=== PATIENT | female | born 1950 | race Caucasian/White ===

== ENCOUNTER 2017-05-28 17:13 | Inpatient (IN) | payer OTHER ==
[~2017-05-28] VITALS: Ht 160 cm; Wt 70.3 kg
[2017-05-28] MEDS ORDERED: NORVASC5 MG PO (17:47)
[2017-05-28] MEDS ORDERED: LIORESAL 10 MG10 MG PO (17:48)
[2017-05-28] MEDS ORDERED: BUSPIRONE HCL10 MG PO (17:49)
[2017-05-28] MEDS ORDERED: COLACE 100 MG100 MG PO (17:51)
[2017-05-28] MEDS ORDERED: DOXYCYCLINE 10100 MG PO (17:52)
[2017-05-28] MEDS ORDERED: ENOXAPARIN40 MG/0.1 SUBQ (17:53)
[2017-05-28] MEDS ORDERED: ESTRADIOL 1 MG T1 M1 PO (17:54)
[2017-05-28] MEDS ORDERED: IRON325 PO (18:03)
[2017-05-28] MEDS ORDERED: FEXOFENADINE H180 MG PO (18:07)
[2017-05-28] MEDS ORDERED: FOLIC ACID1 MG PO (18:08)
[2017-05-28] MEDS ORDERED: NEURONTIN 300M300 M2 PO (18:08)
[2017-05-28] MEDS ORDERED: HYZAAR 50-12.51 EACH PO (18:10)
[2017-05-28] MEDS ORDERED: METHIMAZOLE10 MG PO (18:11)
[2017-05-28] MEDS ORDERED: OMEPRAZOLE40 MG PO (18:12)
[2017-05-28] MEDS ORDERED: OXYCONTIN10 M1 PO (18:14)
[2017-05-28] MEDS ORDERED: ROXICODONE5 M2 PO (18:16)
[2017-05-28] MEDS ORDERED: POTASSIUM20 PO (18:17)
[2017-05-28] MEDS ORDERED: SIMVASTATIN20 MG PO (18:20)
[2017-05-28 19:30] VITALS: BP 171/70
--- NOTE | 2017-05-28 23:34 | NUR ---
ASSUMED CARE AT 1930. PATIENT ADMITTED TO ROOM 333 FROM [facility] S/P L4-5 LAMINECTOMY, FACETECTOMY AND FORAMINOTOMIES WITH POSTERIOR SPINAL FUSION. MIPILEX DRESSING ON LOWER BACK INTACT, SOME SHADOW DRAINAGE NOTED. MEDICATED FOR PAIN AT HS. SKIN OTHERWISE INTACT. UP WITH STEADYING ASSIST, GAIT BELT, WALKER. VOIDS PER TOILET. GAIT UNSTEADY AT TIMES. ABLE TO DO HYGEINE AND CLOTHING ADJUSTMENTS. TAKES PILLS WHOLE WITH WATER, POTASSIUM ALONE, ALL THE OTHERS AT ONE TIME. DECLINED IRON TAB AT HS, STATES SHE TOOK IT WITH HER SUPPER AND IT MAKES HER NAUSEATED. SPENDING THE NIGHT WITH HER. ABLE TO TURN SELF SIDE TO SIDE, AND HAS GOOD BED MOBILITY. ASSESSMENT COMPLETE. K PAD SET UP FOR PATIENT. HOURLY ROUNDING CONTINUES. BED ALARM ON. CALL LITE IN REACH.
--- NOTE | 2017-05-29 06:23 | NUR ---
SLEPT AFTER ABOUT 0300. OBSERVED RESTING IN BED WITH EYES CLOSED BEFORE THAT BUT ABOUT 0215 C/O NOT BEING ABLE TO SLEEP. GAVE PAIN MED, SEE MAR. PATIENT VERBALIZED THAT SHE HAD TO CANCEL SURGERY IN MARCH BECAUSE OF A IN THE FAMILY AND COULD NOT RESCHEDULE UNTIL MAY. THEN SHE HAD THE SECOND SURGERY AND SHE EXPRESSED FRUSTRATION WITH HER PROGRESS. ALLOWED HER TO VENT. STATES FEELS BETTER AFTER TALKING ABOUT IT. CONTINUES AT BEDSIDE. PATIENT ABLE TO TURN SELF, HOURLY ROUNDS CONTINUE. CALL LITE IN REACH. BED ALARM ON.
[2017-05-29 06:41] LABS: HEMATOCRIT 24.7 % (37.0-47.0); MCH 27.2 pg (26.0-34.0); MCHC 32.5 g/dL (28.0-37.0); MCV 83.8 fL (80.0-100.0); MPV 8.1 fl. (7.2-11.1); RBC 2.95 mil/uL (4.20-5.00); RDW-CV 16.3 % (10.5-14.5); WBC 10.8 thou/uL (4.0-11.0)
[2017-05-29 06:50] LABS: CALCIUM 8.3 mg/dL (8.5-10.1); CREATININE 0.9 mg/dL (0.6-1.3); POTASSIUM 4.1 mmol/L (3.5-5.1)
[2017-05-29 08:03] VITALS: BP 146/56
--- NOTE | 2017-05-29 12:47 | NUR ---
Nutrition: pt admit to rehab unit with lumar stenosis, S/P laminectomy. Labs/meds reviewed. No edema. Regular diet. Only one meal documented so far at 50%. 2 weights taken on admit 352# and 155#. Follow for accuracy. No other wt hx available. Would consider low nutrition risk.
--- NOTE | 2017-05-29 16:47 | NUR ---
ASSUMED CARE AT 0730 PATIENT ALERT/ORIENTED, UP WITH ASSIST OF ONE AND WALKER, PAIN MEDS GIVEN FOR GOOD PAIN CONTROL, PARTICIPATED IN ALL THERAPIES, TO DINING ROOM FOR MEALS, HOURLY ROUNDING COMPLETED. BED/CHAIR ALARMS IN PLACE, CALL LIGHT IN REACH. DRESSING TO LOWER BACK WITH OLD DRAINAGE NOTED. CONTINUE WITH CURRENT PLAN OF CARE
[2017-05-29 20:00] VITALS: BP 144/49
--- NOTE | 2017-05-30 05:04 | NUR ---
ASSUMED CARES AT 1920. PT ALERT AND ORIENTED. ALREADY IN BED. PLEASANT. STAYED OVERNIGHT. PAIN MEDS GIVEN NEEDED. TAKES PILLS WITHOUT ISSUES. HEATING PAD TO RIGHT HIP/LEG. DRESSING TO LOWER BACK IS INTACT. SHE IS A MIN ASSIST WITH GAIT BELT AND WALKER. UP TO BATHROOM X 2 DURING THE NIGHT. SLEPT WELL OTHERWISE. USED CALL LIGHT APPROPRIATELY.
[2017-05-30 09:42] VITALS: BP 118/55
--- NOTE | 2017-05-30 17:04 | NUR ---
ASSUMED CARE AT 0730 PATIENT ALERT/ORIENTED, UP WITH ASSIST OF ONE WALKER/GAIT BELT, PAIN MEDS GIVEN TODAY, NOTICED INCREASE SOMMOLENCE THROUGH OUT MORNING. RECIEVED ORDER FROM DR BAIRES TO ADJUST PAIN MEDICATIONS. PARTICIPATED IN THERAPIES, BUT WAS VERY DROWSY, HOURLY ROUNDING COMPLETED, BED/CHAIR ALARMS IN PLACE, CALL LIGHT IN REACH, TOO DROWSY TO GO TO DINING ROOM FOR LUNCH, FAMILY BROUGHT IN DINNER STAYED IN ROOM. CONTINUE WITH CURRENT PLAN OF CARE
[2017-05-30 20:00] VITALS: BP 148/53
--- NOTE | 2017-05-31 05:15 | NUR ---
ASSUMED PT CARE AT 1930. PT ALERT AND ORIENTED X4, POLITE AND COOPERATIVE WITH CARES. PT ALREADY IN BED AT SHIFT CHANGE. UP X1 TO TOILET OVERNIGHT TO VOID. MIN ASSIST WITH GAIT BELT AND WALKER. STAYED OVERNIGHT. NO PRN PAIN MEDICATIONS. TAKES PILLS WHOLE WITH WATER WITHOUT DIFFICULTY. DRESSING TO LOWER BACK IS C/D/I. SLEPT WELL OVERNIGHT. USES CALL LIGHT APPROPRIATELY. CALL LIGHT AND FREQUENTLY USED ITEMS WITHIN REACH. HOURLY ROUNDING IN PROGRESS, WILL CONTINUE TO MONITOR.
[2017-05-31 07:35] VITALS: BP 158/60
--- NOTE | 2017-05-31 15:52 | NUR ---
ASSUMED CARE AT 0730. ALERT ORIENTED PLEASANT COOPERATIVE. HX OF L4-L-5 LAMI DRESSING C/D/I WITHOUT DRAINAGE. TRANSFERS WITH SBA G BELT WALKER AMBULATES TO BR TO VOID AND HAD BM STATES GERD THIS A.M. BUT IS ON PROTONIX DAILY HX OF TAKING PRILOSEC BID AT HOME. OBTAINED ORDER FOR PROTONIX BID, STATES IROM MED DOES MAKE HER FEEL SICK AT HER STOMACH AT HOME. WILL GIVE AFTER MEALS. STATES RT. LEG PAIN BUT HAD PRN MED AT SHIFT CHANGE AND DOESNT WANT TO BE OVERMEDICATED DROWSY LIKE YESTERDAY. USES CALL LIGHT APPROPRIATELY RESTED IN BED AND ALSO UP IN RECLINER VISITING WITH SPOUSE.
[2017-05-31 20:00] VITALS: BP 152/54
--- NOTE | 2017-06-01 05:26 | NUR ---
ASSUMED CARES AT 1915. PT ALERT AND ORIENTED. PLEASANT. HAS PAIN TO RIGHT HIP/BUTTOCK. OXY IR GIVEN FOR PAIN. PT IS BEING CAUTIOUS ABOUT TAKING PAIN MEDS. PT IS ALTERNATING COLD AND HEAT PACK. DRESSING TO LOWER BACK IS INTACT. SLEPT BETTER AFTER MIDNIGHT. SHE IS A MIN ASSIST WITH GAIT BELT AND WALKER. UP TO BATHROOM X 2. DOES OWN CARES. STAYED OVERNIGHT. CALL LIGHT IN REACH.
[2017-06-01 08:10] VITALS: BP 143/46
[2017-06-01 14:14] LABS: % SATURATION 11 % (20-39); IRON 30 ug/dL (50-175)
--- NOTE | 2017-06-01 16:20 | NUR ---
PT HAS PARTICIPATED WITH THERAPIES AND AMBULATES WITH GAITBELT WALKER AND MIN ASSIST OF 1. PT CALLS FOR ASSIST WITH TRANSFERRS AND IS ALERT AND ORIENTATED. DRESSING TO BACK DRY AND INTACT. PRN TO RT THIGH AND SIATICA AREA PAIN GIVEN WITH FAIR EFFECT. PT STATES SHE HAS RELIEF WITH USE OF TYLENOL AND VICODIN SHE USES AT HOME. VICODIN HAS BEEN ORDERED PER . HERE THIS AFTERNOON ADN STAYS OVER NIGHT. PT PROGRESSES TOWARDS GOALS AND HOURLY ROUNDING CONTINUES.
--- NOTE | 2017-06-01 16:30 | NUR ---
INITIAL ASSESSMENT NOTE SW met with pt and pt to complete initial assessment, introduce self, and SW role. Pt alert and oriented. Pt plans to be able to dc home with . Pt has one step to get inside the home and a split entry level java developer home with 5 steps to get to main level where pt can stay. SW to continue to follow to assist with safe dc planning.
--- NOTE | 2017-06-01 19:40 | NUR ---
RESTING QUIETLY IN BED. DENIES NEED FOR PAIN MED. IN ROOM LAYING ON A COT. TOOK MEDS WHOLE WITH WATER.
[2017-06-01 20:01] VITALS: BP 148/60
--- NOTE | 2017-06-02 06:01 | NUR ---
RESTED ON/OFF. SOME RELIEF FROM RIGHT HIP PAIN WITH PAIN MEDS. C/O BED BEING UNCOMFORTABLE. C/O HEARTBURN. HAS SCHEDULED PROTONIX. DIDN'T WANT TO TAKE MYLANTA. UP TO RECLINER AT ABOUT 0520. HOURLY ROUNDING IN PROGRESS.
[2017-06-02 07:39] VITALS: BP 145/47
--- NOTE | 2017-06-02 16:56 | NUR ---
ASSUMED CARE AT 0730 PATIENT ALERT/ORIENTED, PAIN MEDS GIVEN ORDERED. PATIENT BROUGHT IN BOTTLE OF MEDS THAT SHE TAKES TO VERIFY MEDICATION; OXYCODONE 15 MG Q 4 HOURS NEEDED. ALSO WROTE ORDER FOR HOME DOSE OF PRILOSEC DUE TO PATIENT HAVING NO RELIEF FROM PROTONIX. MED TO START TONIGHT. DRESSING TO BACK INCISION CHANGED TODAY. TEAM MEETING TODAY WITH RETEAM FOR NEXT WEEK. UP WITH ONE AND WALKER/GAIT BELT, HOURLY ROUNDING COMPLETED, BED/CHAIR ALARMS IN PLACE, TO DINING ROOM FOR MEALS, PARTICIPATED IN ALL THERAPIES TODAY. CONTINUE WITH CURRENT PLAN OF CARE
[2017-06-02 20:26] VITALS: BP 146/45
--- NOTE | 2017-06-03 05:09 | NUR ---
ASSUMED PT CARE AT 1930. PT ALERT AND ORIENTED X4, POLITE AND COOPERATIVE WITH CARES. DRESSING TO LOWER BACK C/D/I. PRN PAIN MEDICATION ONCE THIS SHIFT FOR RIGHT LEG PAIN. HEATING PAD IN USE TO RIGHT HIP/LEG. PT HAD FIRST DOSE OF HOME SUPPLY OF PRILOSEC. UP WITH ONE, GAIT BELT AND WALKER. PT WALKED HALLWAYS WITH TECH BEFORE BED. UP ONCE TO VOID OVERNIGHT. USES CALL LIGHT APPROPRIATELY. CALL LIGHT AND FREQUENTLY USED ITEMS WITHIN REACH. HOURLY ROUNDING IN PROGRESS, WILL CONTINUE TO PATRICIA.
[2017-06-03 07:39] VITALS: BP 135/55
--- NOTE | 2017-06-03 16:24 | NUR ---
SW met with pt to review team conference summary. Plan for team to reassess pt length of stay during team conference next week. Pt in agreement with plan. SW discussed therapists reported pt to be supervision level with all tasks. Pt expressed goal to not have to dc with a walker, pt hoping to be able to walk just with a cane or with no AD. SW to continue to follow to assist with safe dc planning.
--- NOTE | 2017-06-03 18:09 | NUR ---
PT HAS PARTICIPATED WITH THERAPIES AND PRN FOR PAIN PT REQUESTS GIVEN WITH GOOD EFFECT.PT REPORTS PAIN IS IN RT. THIGH AND SCIATIC AREA AND USES HEATING PAD AT TIMES DRESSING TO LOWER BACK CHANGED TODAY DUE TO ROLLING UP AND HAVING MODERATE SEROUS DRAINAGE. PT IS ALERT AND ORIENTATED AND CONTINUES TO PROGRESS TOWARDS GOALS, HOURLY ROUNDING CONTINUES.
[2017-06-03 19:30] VITALS: BP 153/62
--- NOTE | 2017-06-03 19:30 | NUR ---
PT FELL WHILE USING THE TOILET AT SHIFT CHANGE. PT WAS PLACED ON TOILET BY BUSINESS INSIGHT AND ANALYTICS MANAGER WHO LEFT TO GO TO ANOTHER ROOM. PT PULLED CALL LIGHT AND GOT UP WITHOUT WAITING FOR ASSISTANCE. PT SAT DOWN ON FLOOR AND BUMPED HER HEAD AGAINST THE WALL. VITAL SIGNS TAKEN AND DR. BAIRES NOTIFIED. NO NEW ORDERS. VSS, PT APPEARS TO BE UNHARMED. PER PT SHE HAD BEEN FEELING BAD FOR SOME TIME, NAUSEATED AND DIZZY. PT THINKS THE RETURN TO HER HOME PAIN MEDS MADE HER DIZZY, THAT THEY ARE TOO MUCH, PERHAPS BASED ON THE SEVERE PAIN SHE WAS SUFFERING JUST AFTER SURGERY. PT IN ROOM, CALLED OUT TO THE DESK WHEN PT FELL.
[2017-06-03 21:24] VITALS: BP 153/62
--- NOTE | 2017-06-04 05:59 | NUR ---
PT ALERT AND ORIENTED X4. PT S/P LAMINECTOMY. ORDER OBTAINED FOR ZOFRAN, PT HAD EMESIS ONCE ON DAY SHIFT AND ONCE THIS SHIFT. PT SLEPT WELL AFTER RECEIVING ZOFRAN AND WHEN SHE AWOKE FELT MUCH BETTER. NO RESIDUAL EFFECTS FROM PT FALL. WHEN PT FELL THERE WAS NO RISER IN THE BATHROOM, RISER WAS REPLACED OVER TOILET FOR PT STEADYING ASSIST. UP TO BATHROOM X1 TO VOID WITH GAITBELT AND WALKER WITHOUT INCIDENT. CALL LIGHT AND FREQUENTLY USED ITEMS WITHIN REACH. HOURLY ROUNDING COMPLETED.
[2017-06-04 07:49] VITALS: BP 126/48
--- NOTE | 2017-06-04 12:19 | NUR ---
PATIENT GIVEN WRITTEN HOME EX PROGRAM FOR TKR EX'S VERBAL REVIEW OF PROGRAM.
--- NOTE | 2017-06-04 15:43 | NUR ---
15 MINUTES OF TODAYS TREAMENT MINUTES HAVE BEEN TRANSFERED TO 06/03/17 TREATMENT MINUTES DUE TO YESTURDAY PT ILL.
--- NOTE | 2017-06-04 17:38 | NUR ---
PT HAS HAD NAUSEA TODAY WITH PRN GIVEN WITN FAIR EFFECT AND NO EMISIS. PT HAS REQUESTED NOT TO TAKE MEDICATIONS TODAY WITH AWARE. PT HAS TOLERATED BROYH FROM CHICKEN NOODLE SOUP AND FEW BITES OF BREAD TODAY. PT REMAINS ALERT AND ORIENTATED AND HAS PARTICIPATED WITH THERAPIES TODAY.PT PROGRESSES TOWARDS GOALS AND HOURLY ROUNDING CONTINUES.
[2017-06-04 19:05] VITALS: BP 134/46
[2017-06-04 20:14] VITALS: BP 145/52
--- NOTE | 2017-06-04 22:25 | NUR ---
ASSUMED CARES AT 1930. PT ALERT AND ORIENTED. UP IN RECLINER. AT BEDSIDE. CONTINUES TO HAVE LINGERING NAUSEA SO ZOFRAN WAS GIVEN PER REQUEST. NO EMESIS SO FAR. REFUSED TO TAKE BEDTIME MEDS SHE FEELS TAKING THESE WILL CAUSE HER TO VOMIT. DENIES ANY NEED FOR PAIN MEDS. ICE PACK GIVEN FOR RIGHT HIP. PT RESTING. WILL CONTINUE TO MONITOR.
--- NOTE | 2017-06-05 02:02 | NUR ---
AT 2345, PT C/O RIGHT THIGH PAIN. PT WANTED TYLENOL SO THIS WAS GIVEN. AT 0200, STILL FEELING PAIN, UNCOMFORTABLE. WANTED UP TO RECLINER FOR SHORT TIME. FINALLY AGREEABLE TO TAKING OXYCODONE. ZOFRAN GIVEN WELL. BELCHING AT TIMES. ALTERNATING HEAT AND ICE. REPOSITIONING IN BED.
--- NOTE | 2017-06-05 03:48 | NUR ---
SPOKE WITH DR MORENO, ORDER RECEIVED FOR REGLAN PRN, MELATONIN PRN, LIDOCAINE PATCH. PT SLEEPING SOUNDLY AFTER OXY WAS GIVEN. WILL CONTINUE TO MONITOR.
--- NOTE | 2017-06-05 05:08 | NUR ---
SHE IS A MIN ASSIST WITH GAIT BELT AND WALKER. UP TO BATHROOM. DOES OWN CARES. ISLAND DRESSING TO LOWER BACK IS INTACT WITH MINIMAL DRAINAGE NOTED. PT ASLEEP AT THIS TIME. CALL LIGHT IN REACH AND BED ALARM ON.
[2017-06-05 07:30] VITALS: BP 133/56
[2017-06-05 07:32] LABS: HEMATOCRIT 24.6 % (37.0-47.0); HEMOGLOBIN 8.1 gm/dL (12.0-15.0); MCH 27.5 pg (26.0-34.0); MCHC 32.9 g/dL (28.0-37.0); MCV 83.5 fL (80.0-100.0); MPV 7.6 fl. (7.2-11.1); RBC 2.94 mil/uL (4.20-5.00); RDW-CV 17.5 % (10.5-14.5); WBC 5.7 thou/uL (4.0-11.0)
[2017-06-05 07:37] LABS: CALCIUM 8.1 mg/dL (8.5-10.1); CREATININE 1.1 mg/dL (0.6-1.3)
[2017-06-05 07:40] LABS: POTASSIUM 2.5 mmol/L (3.5-5.1)
--- NOTE | 2017-06-05 16:07 | NUR ---
ASSUMED CARE AT 0730 PATIENT ALERT/ORIENTED, NEW LIDOCAINE PAIN PATCH APPLIED TODAY WITH GOOD RESULTS, PAIN MED GIVEN X1 THIS SHIFT, NO REPORTS OF NAUSEA, ALTHOUGH PATIENT REQUESTED ONLY SOUP/TWIST DRINK, PARTICIPATED IN THERAPIES TODAY, TO DINING ROOM FOR MEALS, HOURLY ROUNDING COMPLETED, BED/CHAIR ALARMS IN PLACE, CALL LIGHT IN REACH
--- NOTE | 2017-06-05 19:05 | NUR ---
CRITICAL LAB THIS AM K+ 2.5, CALLED FULL STACK ENGINEER DR JOSH TRAN CALLED BACK, NO NEW ORDERS, PATIENT HAD NOT BEEN TAKING HER DAILY K+ (20 MEQ BID), RESTARTED THIS AM. INSTRUCTED ON IMPORTANCE OF TAKING DAILY SUPPLEMENT.
--- NOTE | 2017-06-05 20:20 | NUR ---
AWAKENED FOR HS REASSESSMENT AND MED PASS. DENIES DISCOMFORT. DID TAKE ZOFRAN PROPHALACTICALLY. TOOK MEDS WHOLE WITH CLAY MIST PER PT'S REQUEST. PT STATES WATER AND TAKING POTASSIUM BOTH CAUSE NAUSEA. AWAKE ON COT IN ROOM WATCHING TV.
--- NOTE | 2017-06-06 05:26 | NUR ---
PAIN MED GIVEN X ONE DURING THE NIGHT FOR C/O RIGHT HIP PAIN WITH RELIEF. NO C/O NAUSEA. HOURLY ROUNDING IN PROGRESS.
[2017-06-06 07:59] VITALS: BP 131/46
--- NOTE | 2017-06-06 15:46 | NUR ---
PT HAS BEEN UP TO RECLINER AND HAS AMBULATED IN [place] TO DINNINGROOM WITH WALKER GAITBELT AND MIN ASSIST OF 1. PT HAS NOT REQUESTED PAIN MEDICATION SINCE DOSE GIVEN EARLY THIS AM AND REPORTS LIDODERM PATCH GIVES RELIEF TO RT THIGH PAIN. PT CONTINENT OF B+B AND IS ABLE TO CLEANSE SELF AND ADJUST CLOTHING. . DRESSING TO LOWER BACK DRY AND INTACT. PT REMAINS ALERT AND ORIENTATED AND CALLS FOR ASSIST NEEDS. PT CONTINUES TO PROGRESS TOWARDS GOALS AND HOURLY ROUNDING CONTINUES.
[2017-06-06 20:09] VITALS: BP 139/43
--- NOTE | 2017-06-06 20:20 | NUR ---
RESTING QUIETLY IN BED AND WATCHING TV. DENIES DISCOMFORT. TOOK MEDS WHOLE WITH WATER. TAKES POTASSIUM PILL SEPARATELY. TAKES CHEWABLE PARK LAST. SITTING ON COUCH IN ROOM WATCHING TV.
--- NOTE | 2017-06-07 05:05 | NUR ---
UP X ONE DURING THE NIGHT TO THE BATHROOM TO VOID. PAIN MED GIVEN FOR C/O RIGHT HIP PAIN WITH RELIEF. HOURLY ROUNDING IN PROGRESS.
[2017-06-07 07:46] VITALS: BP 126/48
--- NOTE | 2017-06-07 17:49 | NUR ---
ASSUMED CARE AT 0730 PATIENT ALERT/ORIENTED, PAIN TO RIGHT THIGH REPORTED, LIDOCAINE PATCH APPLIED, NO PO PAIN MEDS NEEDED THIS SHIFT. PARTICIPATED IN ALL THERAPIES TODAY, TO DINING ROOM FOR MEALS. BED/CHAIR ALARMS IN PLACE, CALL LIGHT IN REACH, HOURLY ROUNDING COMPLETED. UP WITH ONE AND WALKER/GAIT BELT. CONTINUE WITH CURRENT PLAN OF CARE
[2017-06-07 20:16] VITALS: BP 124/49
--- NOTE | 2017-06-07 20:20 | NUR ---
SITTING UP IN RECLINER WATCHING TV. LAYING ON COUCH. STAYS WITH PATIENT. TOOK MEDS WHOLE WITH WATER. NO COMPLAINTS VOICED.
--- NOTE | 2017-06-08 05:19 | NUR ---
RESTED QUIETLY. NO COMPLAINTS VOICED. HOURLY ROUNDING IN PROGRESS.
[2017-06-08 07:00] VITALS: BP 128/56
--- NOTE | 2017-06-08 15:36 | NUR ---
pt has participated with therapies and reports pain of rt.thigh better with use of lidocain patch. dressing to low back changed, incision healing with no redness or draiange noted. pt ambulates with gaitbelt and walker with min assist of 1 and inproved gait today. pt continent of b+b.pt remainsalert and orientated and progresses towards goals.
[2017-06-08 20:55] VITALS: BP 115/44
--- NOTE | 2017-06-09 05:34 | NUR ---
ASSUMED CARES AT 1920. PT ALERT AND ORIENTED. PLEASANT. DENIES ANY NAUSEA AND VOMITING. C/O PAIN TO RIGHT THIGH. PAIN MEDS GIVEN PER REQUEST. TAKES PILLS WITHOUT ISSUES. DRESSING TO LOWER BACK IS INTACT. SHE IS A MIN ASSIST WITH GAIT BELT AND WALKER. UP TO BATHROOM. DOES OWN CARES. SLEPT MOST OF THE NIGHT. AT BEDSIDE. CALL LIGHT IN REACH AND BED ALARM ON.
[2017-06-09 08:12] VITALS: BP 116/33
--- NOTE | 2017-06-09 16:15 | NUR ---
SW met with pt, pt , and pt sister in law and brother in law to review team conference summary. Plan for pt to continue rehab therapies and for team to reassess pt length of stay during team conference on Friday 06/16. Pt and pt in agreement with plan. SW discussed team mentioned pt barriers to be gait deviation, decreased balance, WB differential, decreased standing balance, pain and pt anticipates working with therapists on interventions and making progress towards her goals within the next week. SW to continue to follow to assist with safe dc planning.
--- NOTE | 2017-06-09 17:00 | NUR ---
ASSUMED CARE AT 0730 PATIENT ALERT/ORIENTED, PAIN WELL CONTROLLED WITH LIDODERM PATCH TO RIGHT THIGH/HIP AREA. DRESSING TO LOW BACK C/D/I, UP WITH ASSIST OF ONE AND WALKER/GAIT BELT, TO DINING ROOM FOR MEALS. HOURLY ROUNDING COMPLETED, PARTICIPATED IN ALL THERAPIES TODAY, BED/CHAIR ALARMS IN PLACE. CALL LIGHT IN REACH. CONTINUE WITH CURRENT PLAN OF CARE
[2017-06-09 19:30] VITALS: BP 123/42
--- NOTE | 2017-06-10 05:33 | NUR ---
ASSUMED CARES AT 1920. PT ALREADY IN BED. SLEEPING. ORIENTED X 4. C/O PAIN TO RIGHT THIGH AND SO OXYCODONE GIVEN. NO C/O NAUSEA OR VOMITING. SLEPT WELL MOST OF THE NIGHT. SHE IS A MIN ASSIST WITH GAIT BELT AND WALKER. UP TO BATHROOM. DOES OWN CARES. STAYED OVERNIGHT. USED CALL LIGHT APPROPRIATELY. BED ALARM ON.
[2017-06-10 07:45] VITALS: BP 139/57
[2017-06-10 15:20] VITALS: BP 134/65
[2017-06-10 17:16] VITALS: BP 134/65
--- NOTE | 2017-06-10 18:28 | NUR ---
ASSUMED CARE AT 0730 PATIENT ALERT/ORIENTED, PAIN MEDS GIVEN REQUESTED, PARTICIPATED IN ALL THERAPIES TODAY, WITNESSED FALL THIS AFTERNOON WITH PT, XRAYS OF LUMBAR BACK AND RIGHT HIP ORDERED DUE TO RECENT BACK SURGERY AND INCREASED PAIN TO RIGHT HIP. HOURLY ROUNDING COMPLETED, TO DINING ROOM FOR MEALS, BED/CHAIR ALARMS IN PLACE, CALL LIGHT IN REACH. WILL AWAIT XRAY RESULTS AND FOLLOW UP WITH MD NEEDED.
[2017-06-10 20:07] VITALS: BP 121/43
--- NOTE | 2017-06-11 05:10 | NUR ---
ASSUMED CARES AT 1920. PT SLEEPY BUT WILL AWAKE WHEN SPOKEN TO. C/O BACK PAIN NOW BUT VERY HESITANT TO TAKE ANYTHING STRONGER THAN TYLENOL. ICE PACK GIVEN. SHE IS A MIN ASSIST WITH GAIT BELT AND WALKER. DURING THE NIGHT DID HAVE TO USE W/C TO GO BATHROOM BECAUSE PT WAS FEELING "JERKY" AND UNSTEADY. IS ANXIOUS ABOUT FALLING AGAIN. SLEPT MOST OF THE NIGHT OTHERWISE. DRESSING TO LOWER BACK HAS SMALL AMOUNT OF DRAINAGE AND IS INTACT. USED CALL LIGHT APPROPRIATELY. BED ALARM ON.
[2017-06-11 07:30] VITALS: BP 115/46
[2017-06-11 08:03] VITALS: BP 115/46
[2017-06-11 11:20] LABS: CALCIUM 8.3 mg/dL (8.5-10.1); POTASSIUM 3.6 mmol/L (3.5-5.1)
[2017-06-11 11:41] LABS: MAGNESIUM 1.7 mg/dL (1.8-2.4); PHOSPHORUS* 3.7 mg/dL (2.5-4.9)
--- NOTE | 2017-06-11 16:50 | NUR ---
AM ASSESSMENT AND FALL PRECAUTIONS COMPLETED DOCUMENTED. PT WAS VERY DROWSY THIS AM, STATES SHE DIDN'T SLEEP WELL LAST NIGHT. THERAPY ADJUSTED HER SCHEDULE TO ALLOW HER TO SLEEP LATER AND PT WAS MORE ALERT AND COOPERATIVE AT THAT POINT. PT SHOWERED WITH THE ASSISTANCE OF OT, DRESSING TO LOW BACK INCISION CHANGED. PAIN HAS BEEN ADEQUATELY CONTROLLED WITH TYLENOL AND ULTRAM. FALL/ SAFETY PRECAUTIONS IN PLACE, HOURLY ROUNDING OBSERVED.
[2017-06-11 20:07] VITALS: BP 137/38
--- NOTE | 2017-06-12 05:25 | NUR ---
ASSUMED PT CARE AT 1930. PT ALERT AND ORIENTED X4, POLITE AND COOPERATIVE WITH CARES. PT IS MIN ASSIST WITH GAIT BELT AND WALKER. UP TO VOID ONCE OVERNIGHT. STOOL X1 THIS SHIFT. PT TOOK ULTRAM FOR BACK PAIN AND TYLENOL FOR HEADACHE. PER PT SHE DID NOT SLEEP MUCH OVERNIGHT. DRESSING TO LOWER BACK HAS SMALL AMOUNT OF DRAINAGE BUT OTHERWISE IS INTACT. AT BEDSIDE OVERNIGHT. PT USES CALL LIGHT APPROPRIATELY. CALL LIGHT AND FREQUENTLY USED ITEMS WITHIN REACH. HOURLY ROUNDING IN PROGRESS, WILL CONTINUE TO MONITOR.
[2017-06-12 08:00] VITALS: BP 116/41
--- NOTE | 2017-06-12 12:35 | NUR ---
AM ASSESSMENT AND VITAL SIGNS COMPLETED AND DOCUMENTED. PT C/O NOT SLEEPING WELL LAST NIGHT, STATED SHE FORGOT TO ASK FOR A SLEEPING PILL. PT AMBULATED WITH NURSE APPROXIMATELY 100 FT TO EASE THE PAIN IN HER RIGHT HIP/ THIGH AREA AND THEN SHE WENT BACK TO BED AND SLEPT ABOUT 2 1/2 HOURS BEFORE THERAPY. PRN TYLENOL AND TRAMADOL ALTERNATED FOR PAIN CONTROL, PT DECLINING NARCOTIC PAIN MEDS AFTER RECENT FALL. PT HAS PARTICIPATED WITH THERAPIES, USUSALLY SITS IN THE RECLINER DURING REST PERIODS. FALL PRECAUTIONS AND HOURLY ROUNDING CONTINUE.
[2017-06-12 20:30] VITALS: BP 122/49
--- NOTE | 2017-06-13 04:47 | NUR ---
ASSUMED PT CARE AT 1930. PT ALERT AND ORIENTED X4, POLITE AND COOPERATIVE WITH CARES. PT MIN ASSIST WITH GAIT BELT AND WALKER. UP TO BATHROOM TO VOID ONCE OVERNIGHT. MELATONIN AT HS PER PT REQUEST. PT TOOK TYLENOL FOR PAIN, REFUSES ULTRAM. ICE PACK TO RIGHT HIP AT HS. DRESSING TO LOWER BACK WITH SMALL AMOUNT OF DRAINAGE BUT OTHERWISE INTACT. AT BEDSIDE OVERNIGHT. PT USES CALL LIGHT APPROPRIATELY. CALL LIGHT AND FREQUENTLY USED ITEMS WITHIN REACH. HOURLY ROUNDING IN PROGRESS, WILL CONTINUE TO MONITOR.
[2017-06-13 08:23] VITALS: BP 109/41
--- NOTE | 2017-06-13 17:01 | NUR ---
AM ASSESSMENT AND VITAL SIGNS COMPLETED DOCUMENTED. PT HAS AMBULATED WITH CONTACT GUARD AND WALKER X3 TODAY, APPROX 100 YDS EACH TIME. OXY 15MG GIVEN X1 PER PT REQUEST WHEN TYLENOL WAS NOT EFFECTIVE FOR PAIN RELIEF. PT NAPPED INTERMITTENTLY THROUGHOUT THE DAY. PT IS ABLE TO DO HER OWN GROOMING, DRESSING AND TOILETING WITH SET UP AND SUPERVISION. FALL PRECAUTIONS AND HOURLY ROUNDING CONTINUE.
[2017-06-13 21:38] VITALS: BP 111/51
[2017-06-14 04:33] LABS: ABSOLUTE EOSINOPHILS 0.3 thou/uL (0.0-0.7); ABSOLUTE LYMPHOCYTES 0.8 thou/uL (0.8-5.3); ABSOLUTE MONOCYTES 0.5 thou/uL (0.0-1.2); ABSOLUTE NEUTROPHILS 3.7 thou/uL (1.6-8.1); BASOPHILS 0.6 %; HEMATOCRIT 22.5 % (37.0-47.0); HEMOGLOBIN 7.5 gm/dL (12.0-15.0); LYMPHOCYTES 15.3 %; MCH 27.5 pg (26.0-34.0); MCHC 33.1 g/dL (28.0-37.0); MCV 82.9 fL (80.0-100.0); MONOCYTES 9.2 %; MPV 8.7 fl. (7.2-11.1); NUCLEATED RBCS 0 /100WBC; PLATELET COUNT* 216 thou/uL (150-400); POLYS 69.9 %; RBC 2.72 mil/uL (4.20-5.00); RDW-CV 17.4 % (10.5-14.5); WBC 5.2 thou/uL (4.0-11.0)
[2017-06-14 04:40] LABS: ALBUMIN 2.1 g/dL (3.4-5.0); CALCIUM 7.7 mg/dL (8.5-10.1); CREATININE 0.8 mg/dL (0.6-1.3); POTASSIUM 3.8 mmol/L (3.5-5.1); TOTAL BILIRUBIN 0.2 mg/dL (<0.1-1.0)
--- NOTE | 2017-06-14 07:28 | NUR ---
ASSUMED CARE AT 1920. ALERT AND ORIENTED. PLEASANT. C/O PAIN TO RIGHT ANKLE AND RIGHT LEG. RLE EDEMA 1-2+. PT RELUCTANT TO TAKE OXYCODONE THIS AM SHE BELIEVES THAT SHE WILL BE DROWSY BUT FINALLY AGREED TO TAKE IT. TAKES PILLS WITHOUT ISSUES. PT WANTS DRESSING TO LOWER BACK CHANGED AFTER SHOWER TODAY. SHE IS A MIN ASSIST WITH GAIT BELT AND WALKER. UP TO BATHROOM. DOES OWN CARES. PT STATED THAT SHE DID NOT SLEEP WELL SHE WOULD HAVE WANTED. CALL LIGHT IN REACH AND BED ALARM ON.
[2017-06-14 07:30] VITALS: BP 124/54
--- NOTE | 2017-06-14 18:10 | NUR ---
ASSUMMED CARE OF PT AT 0730, PT ALERT AND ORIENTED, TRANSFERS WITH SBA TO MIN ASSIST GB AND WALKER,VOIDS PER TOILET, PT COMPLAINS OF PAIN IN RIGHT LEG AND FOOT, AND RIGHT HIP, LIDOCAINE APPLIED TO RIGHT HIP, INFORMED PHYSICIAN, X/R ORDERED AND COMPLETED, KALEIGH WRAP ORDERED FOR RIGHT ANKLE, APPLIED THIS PM BUT PT STATES SHE DID NOT FEEL IT HELPED AND REQUESTED IT TO BE REMOVED, DISCUSSED ORDER FOR TEDS AND PT STATED SHE DID NOT WANT TO WEAR THE COMPRESSION SOCKS, SHE FELT IT WOULD INCREASE HER FOOT PAIN, ULTRASOUND ALSO COMPLETED ON RIGHT LEG WITH NEGATIVE RESULTS, PT RESTARTED ON HER ARTHRITIS MEDICATION, ORDER RECIEVED TO TAKE OWN HOME MEDICATION, PT UP IN CHAIR AT INTERVALS, PARTICIPATED IN ALL THERAPIES, REFUSED TO GO TO DININGROOM, HOURLY ROUNDING COMPLETED, ASSESSMENT COMPLETE, WILL CONTINUE TO MONITER.
[2017-06-14 19:48] VITALS: BP 131/54
--- NOTE | 2017-06-15 05:14 | NUR ---
ASSUMED PT CARE AT 1930. PT ALERT AND ORIENTED X4, POLITE AND COOPERATIVE WITH CARES. PT SITTING UP IN RECLINER, READY TO GO TO BED. C/O PAIN IN RIGHT ANKLE AND RIGHT LEG. RLE EDEMA 1-2+. DRESSING TO BACK C/D/I. MELATONIN AND OXY IR AT HS. PT UP TO VOID WITH MIN ASSIST, GAIT BELT AND WALKER. DOES OWN PERICARES. PT COMPLAINED AGAIN ABOUT QUALITY OF FOOD. CALL LIGHT AND FREQUEENTLY USED ITEMS WITHIN REACH. USES CALL LIGHT APPROPRIATELY. HOURLY ROUNDING IN PROGRESS, WILL CONTINUE TO MONITOR.
[2017-06-15 07:37] VITALS: BP 126/56
--- NOTE | 2017-06-15 15:43 | PLAN ---
[facility] [address] [place] [address] REHAB UNIT PLAN OF CARE Name: HILARIO FAY Room: [address] IN [facility]#: [id number] Admission: 05/28/17 Attend Phys: Kelly Timmons DO Discharge: Date of : 50 Report #: [id number] THIS REPORT FOR: //name// CC: FAM unknown Kelly Timmons DATE OF SERVICE: 05/29/2017 This is a 67-year-old female status post L4-5 fusion due to spondylosis with bilateral lower extremity radiculopathy, who then returned to the OR for L4-5 diskectomy and revision of the posterior spinal fusion. She has been working well with therapies and making gains. MEDICAL PROGNOSIS: Good. REHABILITATION PROGNOSIS: Good. Previous level of function was modified independent to independent with activities of daily living. Current level of function is minimum assistance 1-2 depending on therapy, activity and time of day. Estimated length of stay is 12-14 days with discharge disposition to the home setting where she does have a spouse that can assist if needed. She did have some cognitive impairment in postoperative period. Physical Therapy will see the patient 60-90 minutes per day, 5 days per week, working on upper and lower body strength, balance, coordination, and navigation. Occupational Therapy will work with the patient 60-90 minutes per day, 5 days per week, working on upper and lower body strength, balance, coordination, navigation, bathing, dressing, and toileting. Speech Language Pathology will work with the patient 30-90 minutes per day, 5 days per week, working on strategies with comprehension, expression, social interaction, problem solving and memory. This is an overall plan of care, may change from time to time. We will team weekly and make changes to plan of care as needed. <ELECTRONICALLY SIGNED> By: Kelly Timmons DO 06/15/17 [id number] Timmons DO /nt
--- NOTE | 2017-06-15 15:43 | H ---
[address] [address] HISTORY AND PHYSICAL Name: HILARIO FAY Room: [address] IN [facility]#: [id number] Admission: 05/28/17 Attend Phys: Kelly Timmons DO Discharge: Date of : 50 Report #: [id number] THIS REPORT FOR: //name// CC: FAM unknown Kelly Timmons DATE OF SERVICE: 05/28/2017 HISTORY OF PRESENT ILLNESS: This is a 67-year-old female, admitted to inpatient rehabilitation to facilitate safe discharge home, status post L4-L5 spondylosis with radiculopathy with bilateral lower extremity radicular pain, who underwent an elective laminectomy and fusion of L4-L5 on 05/19/2017. In the postoperative period, she had continued to have lower extremity pain and limited movement and foot drop. She was then taken back for diskectomy and revision of the spinal fusion. She has been working with therapies and medically stable to undergo acute inpatient rehabilitation. She has multiple medical comorbidities requiring daily medical care. No changes since the preadmission screening. Previous level of function, modified independent to independent with activities of daily living. Current level of function is minimum assistance of 1-2 depending on therapy, activity and time of day. She does have mild impairment of comprehension, expression, problem solving and memory. Estimated length of stay 12-14 days with discharge disposition to the home setting where she lives in a house. Her can provide with supervision and assistance if needed. She does have rheumatoid arthritis. She has been off her medications and will remain off her rheumatoid medications until follow up in 2-3 weeks with Rheumatology. PAST MEDICAL HISTORY: Hypertension, GERD, osteoarthritis, hyperlipidemia, rheumatoid arthritis. Anemia, current hemoglobin of 7.7 and generally runs about 9. Hyperthyroid, hypokalemia, history of NSAID-induced nephropathy, hysterectomy and cholecystectomy. ALLERGIES: CELEBREX AND PENICILLIN. FAMILY HISTORY: No significant family history. SOCIAL HISTORY: No tobacco, alcohol or illicit drug use. REVIEW OF SYSTEMS: A 14-point review of systems is done and is negative except as mentioned in HPI, specifically no fever, chest pain, shortness of breath, abdominal pain or distention. PHYSICAL EXAMINATION: GENERAL: Alert, oriented, no apparent distress. VITAL SIGNS: Reviewed and are stable. HEENT: Head atraumatic, normocephalic. Pupils equal, round, [place] [address] HISTORY AND PHYSICAL Name: HILARIO FAY Room: [address] IN [facility]#: [id number] Admission: 05/28/17 Attend Phys: Kelly Timmons DO Discharge: Date of : 50 Report #: [id number] LUNGS: Symmetric expansion. ABDOMEN: Soft. MUSCULOSKELETAL: No clubbing, cyanosis or edema. NEUROLOGIC: Cranial nerves 2 through 12 are grossly intact with no focal neuro deficits, 5/5 strength in the bilateral upper and lower extremities and sensation is intact. ASSESSMENT: 1. Status post L4-L5 spinal stenosis with bilateral lower extremity radiculopathy post L4-L5 fusion with revision and diskectomy. 2. Multiple medical comorbidities including osteoarthritis and rheumatoid arthritis. 3. Anemia, 7.7 hemoglobin. PLAN: 1. Admission to inpatient rehabilitation to facilitate safe discharge home. 2. PT, OT, Speech, Language, Case Management, nursing and HIMS to make evaluations and recommendations. 3. Medication reconciliation was completed. 4. Plan of care is pending and will team her weekly. <ELECTRONICALLY SIGNED> By: Kelly Timmons DO 06/15/17 1543 1515 1605Kelly Timmons DO /nt
--- NOTE | 2017-06-15 17:15 | NUR ---
ASSUMMED CARE OF PT AT 0730, PT ALERT AND ORIENTED, PT TRANSFERS WITH SUPERVSION, GB WALKER, PT COMPLAINS OF PAIN IN BACK, AND ALL OF RIGHT LEG, MEDICATED PER ORDER, DRESSING CHANGED TO INCISION, 2 SMALL AREAS OF DRAINAGE NOTED ON INCISION, PT TAKING FOOD AND FLUIDS WELL,VOID PER TOILET, PARTICIPATED IN ALL THERAPIES, HOURLY ROUNDING COMPLETED, ASSESSMENT COMPLETE. WILL CONTINUE TO MONITER.
[2017-06-15 19:49] VITALS: BP 122/53
--- NOTE | 2017-06-16 05:34 | NUR ---
ASSUMED PT CARE AT 1930. PT ALERT AND ORIENTED X4, POLITE AND COOPERATIVE WITH CARES. AT BEDSIDE OVERNIGHT. PT SITTING UP IN RECLINER, TO BR TO VOID WITH SBA, GAIT BELT AND WALKER. PT DOES OWN PERICARES. PT C/O PAIN IN RIGHT LEG. PRN PAIN MEDICATION AND MELATONIN GIVEN WITH HS MEDS. PT SLEPT ALL NIGHT. DRESSING TO BACK DRY AND INTACT WITH SMALL DIME SIZE AREA OF DRAINAGE. CALL LIGHT AND FREQUENTLY USED ITEMS WITHIN REACH. USES CALL LIGHT APPROPRIATELY. HOURLY ROUNDING IN PROGRESS, WILL CONTINUE TO MONITOR.
[2017-06-16 07:38] VITALS: BP 129/56
--- NOTE | 2017-06-16 16:05 | NUR ---
SW met with pt and pt to review team conference summary. Plan for pt to return home with on Wednesday with HH services and possibly a rolling walker as well. Pt to be in tomorrow during therapy times to complete family training. SW to continue to follow to assist with safe dc planning.
--- NOTE | 2017-06-16 17:04 | NUR ---
WOUND CARE NOTE: CONSULT RECEIVED FOR INCISION TO BACK. PATIENT PRESENTS WITH AN INCISION TO HER LUMBAR AREA. AREA APPEARS TO BE HEALING, BUT DOES HAVE SEVERAL OPEN AREAS. SUPERIOR AREA ON INCISION LINE IS MOST CONCERNING. THIS MEASURES 2X0.2X0.3. WOUND BED IS MOIST, YELLOW. VIOLETA-WOUND IS WITH NEW EPITHELIUM. WOUND WAS CLEANSED WITH WOUND CLEANSER, PATTED DRY. SKIN PREPPED. APPLIED AQUACEL AG TO INCISION LINE/WOUND BED. SECURED WITH ISLAND GAUZE. EDUCATED PATIENT ON FINDINGS AND DRESSING SELECTION, COMMUNICATED UNDERSTANDING. RECOMMEND -- DRESSING CHANGES ENCOURAGE GOOD NUTRITION FOR WOUND HEALING KEEP OFF WOUNDS FOLLOW UP IN WOUND CENTER IF NEEDED
--- NOTE | 2017-06-16 18:54 | NUR ---
ASSUMED CARE AT 0730, PATIENT ALERT/ORIENTED, PAIN MEDS GIVEN FOR BACK/RIGHT HIP PAIN, LIDODERM PATCH APPLIED TO RIGHT HIP, UP WITH ASSIST OF ONE AND WALKER/GAIT BELT, CALL LIGHT IN REACH, BED/CHAIR ALARMS IN PLACE, TO DINING ROOM FOR MEALS. HOURLY ROUNDING COMPLETED, PARTICIPATED IN ALL THERAPIES TODAY. NEW ORDER FOR DRESSING CHANGES TO BACK INCISION. D/C TO HOME ON WEDNESDAY.
[2017-06-16 20:00] VITALS: BP 136/47
--- NOTE | 2017-06-17 01:42 | NUR ---
ASSUMED CARE @ 1946-.SITS IN RECLINER WATCHING TV.REFUSED K PAD.AMBULATED W/ CLOTHING MAN W/ GB & WALKER @ 2009 IN [place]WAY.BACK TO BED W/ HOB UP.REFUSED K PAD.BED ALARM PUT ON @ 2044.SEE PAIN MANAGEMENT @ 2204 W/PRN MELATONIN 10 MG ORAL.TURNS SELF @ NIGHT.SPOUSE STAYING ALL NIGHT.ON HOURLY ROUNDS.CLOTHING MAN DOING ODD HOUR ROUNDS.
--- NOTE | 2017-06-17 05:48 | NUR ---
SLEEPING SINCE 2204.BRP W/ ASSIST X2.TOOK ALL ORANGE SHERBET HS SNACK.
[2017-06-17 09:19] VITALS: BP 136/46
--- NOTE | 2017-06-17 15:43 | NUR ---
ASSUMED CARE AT 0730, PATIENT ALERT/ORIENTED, PAIN MEDS GIVEN X 1 THIS SHIFT WITH GOOD RESULTS, LIDOCAINE PATCH APPLIED TO RIGHT HIP, HOURLY ROUNDING COMPLETED, PARTICIPATED IN ALL THERAPIES, TO DINING ROOM FOR MEALS. TO BE DISCHARGE TOMORROW. BED/CHAIR ALARMS IN PLACE, CALL LIGHT IN REACH/
--- NOTE | 2017-06-17 16:43 | NUR ---
SW discussed DME and HH preferences with pt and pt preference for [facility] HH and okay with Jacki for Rolling walker. SW sent referral to [facility] with final orders and med list to follow upon dc date and referral to [facility] with order to follow to be delivered to pt room at hospital tomorrow prior to pt dc. SW to continue to follow to assist with finalizing safe dc plan tomorrow.
[2017-06-17 20:08] VITALS: BP 130/54
--- NOTE | 2017-06-18 01:28 | NUR ---
ASSUMED CARE @ 1923-06/17-.SITS IN RECLINER W/ CHAIR ALARM ALREADY ON. REFUSED K PAD. STAYING ALL NIGHT.SEE PAIN MANAGEMENT @ 2111 W/ PRN MELATONIN 10 MG ORAL GIVEN.ASSIST LIFTING BOTH LEGS INTO BED.SBA FOR TOILETING.HOB UP.WANTS ONLY SIDERAILS X2 UP.BED ALARM PUT ON @ 2114.TURNS SELF @ NIGHT.ON HOURLY ROUNDS.THIRD HELPER DOING ODD HOUR ROUNDS.
[2017-06-18] MEDS ORDERED: TRAZODONE HCL50 MG PO (04:54)
--- NOTE | 2017-06-18 05:41 | NUR ---
SLEEPING SINCE 0.BRP W/ SBA X2.TOOK ALL ORANGE SHERBET HS SNACK.FOR DISCHARGE TODAY 06/18-WEDNESDAY.
[2017-06-18 07:30] VITALS: BP 121/53
[2017-06-18 11:06] VITALS: BP 134/65
--- NOTE | 2017-06-18 11:08 | NUR ---
Pt to dc home with today, Sunday 06/18. [facility] HH services to follow. RW provided through [facility]. SW faxed needed information and final orders to [facility] and final orders/med list to [facility].
[2017-06-18] MEDS ORDERED: TUMS PO (13:44)
[2017-06-18 15:24] VITALS: BP 134/65
[2017-06-18 16:45] VITALS: BP 134/65
--- NOTE | 2017-06-18 17:29 | NUR ---
ASSUMED CARE AT 0730. ALERT ORIENTED PLEASANT COOPERATIVE. HX OF LAMINECTOMY DRESSING C/D/I. TRANSFERS WITH SBA G BELT WALKER USES CALL LIGHT APPROPRIATELY FOR ASSIST. PARTICIPATING IN THERAPIES THROUGHOUT THE DAY. TAKES MEDS WITH WATER WITHOUT DIFFICULTY. AT BEDSIDE. DISCHARGE INSTRUCTIONS WRITTEN WENT OVER INSTRUCTIONS WITH PT. AND VERBALIZED UNDERSTANDING ALLOWED TIME FOR QUESTIONS. WALKER ARRIVED LATE FROM [facility] PT. DISCHARGED PER W/C WITH BELONGINGS AND INSTRUCTIONS TO HOME WITH HOME HEALTH AT 1645.
--- NOTE | 2017-06-30 14:12 | D ---
[facility] [address] [place] [address] DISCHARGE SUMMARY Name: HILARIO FAY Room: [address] IN [facility]#: [id number] Admission: 05/28/17 Attend Phys: Kelly Timmons DO Discharge: 06/18/17 Date of : 50 Report #: [id number] THIS REPORT FOR: //name// CC: FAM unknown Kelly Timmons DISCHARGE DIAGNOSIS: Lumbar stenosis status post laminectomy with ongoing radiculopathy. Discharge disposition is to home. The patient is to follow with her primary care physician within 1 week and her surgeon within 1-2 weeks. Home health PT, OT and nursing have been recommended. Notifications for physician were given. She will maintain a regular diet. Monitor weight gain. Maintain fall precautions. Medications were reviewed, reconciled by myself, and are available in the MAR. Prescriptions for baclofen and gabapentin were given for a 1 month supply. The patient did approach her goals, did well with therapy and will continue with home health therapies upon discharge. DISCHARGE PHYSICAL EXAMINATION: GENERAL: Alert, oriented, no apparent distress. VITAL SIGNS: Reviewed and are stable. HEENT: Head atraumatic, normocephalic. Pupils are equal, round, and reactive. ABDOMEN: Soft, nontender, nondistended. NEUROLOGIC: Cranial nerves 2-12 are grossly intact with no focal neuro deficits, 5/5 strength in bilateral upper and lower extremities. SKIN: Warm and dry. No rashes, lesions noted. She does have one area on the superior portion of her incision that did have a little bit of slough. Wound nurse did follow with that and orders were given for discharge. <ELECTRONICALLY SIGNED> By: Kelly Timmons DO 06/30/17 1412 1259 1525Kelly Timmons DO /nt
== END 2017-06-18 16:45 | disposition home health service (06) | DRG 552 ==
LOC: M.REH 17:13
PROVIDERS: Internal Medicine; ADMIT Physical Medicine & Rehabilitation
DX: M47.26 Other spondylosis with radiculopathy, lumbar region (principal); I10 Essential (primary) hypertension; K21.9 Gastro-esophageal reflux disease without esophagitis; M19.90 Unspecified osteoarthritis, unspecified site; E78.5 Hyperlipidemia, unspecified; D64.9 Anemia, unspecified; M06.9 Rheumatoid arthritis, unspecified; E05.90 Thyrotoxicosis, unspecified without thyrotoxic crisis or storm; M48.061 Spinal stenosis, lumbar region without neurogenic claudication; M79.89 Other specified soft tissue disorders; G47.00 Insomnia, unspecified; R19.7 Diarrhea, unspecified; K20.8 Other esophagitis; R26.9 Unspecified abnormalities of gait and mobility; T36.4X5A Adverse effect of tetracyclines, initial encounter; Z98.1 Arthrodesis status; Z90.710 Acquired absence of both cervix and uterus; Z90.49 Acquired absence of other specified parts of digestive tract; Z88.0 Allergy status to penicillin; Z88.8 Allergy status to other drugs, medicaments and biological substances; Y92.89 Other specified places as the place of occurrence of the external cause; Z79.899 Other long term (current) drug therapy

== ENCOUNTER → 2018-03-02 | Outpatient (CLI) | payer OTHER ==
[~2018-03-02] MED LIST: BUSPIRONE HCL10 MG PO; COLACE 100 MG100 MG PO; DOXYCYCLINE 10100 MG PO; ENOXAPARIN40 MG/0.1 SUBQ; ESTRADIOL 1 MG T1 M1 PO; FEXOFENADINE H180 MG PO; FOLIC ACID1 MG PO; HYZAAR 50-12.51 EACH PO; IRON325 PO; LIORESAL 10 MG10 MG PO; METHIMAZOLE10 MG PO; NEURONTIN 300M300 M2 PO; NORVASC5 MG PO; OMEPRAZOLE40 MG PO; OXYCONTIN10 M1 PO; POTASSIUM20 PO; ROXICODONE5 M2 PO; SIMVASTATIN20 MG PO; TRAZODONE HCL50 MG PO; TUMS PO
== END ==
LOC: M.RAD 10:07
DX: Z12.31 Encounter for screening mammogram for malignant neoplasm of breast (principal)

== ENCOUNTER → 2018-05-19 | Outpatient (CLI) | payer OTHER | LOC: M.RAD 05-17 11:40 | DX: R92.1 Mammographic calcification found on diagnostic imaging of breast (principal) ==

== ENCOUNTER → 2019-04-26 | Outpatient (CLI) | payer OTHER | LOC: M.RAD 11:11 | DX: Z12.31 Encounter for screening mammogram for malignant neoplasm of breast (principal) ==

== ENCOUNTER → 2019-05-02 | Outpatient (CLI) | payer OTHER | LOC: M.ULTRA 13:30 | DX: N63.20 Unspecified lump in the left breast, unspecified quadrant (principal) ==

== ENCOUNTER → 2019-08-01 | Outpatient (CLI) | payer OTHER ==
[~2019-08-01] MED LIST changes: +ALLEGRA ALLERGY60 MG PO; +IRBESARTAN-HCT1 EAC1 PO; +METHOTREXATE 22.5 M1 PO; +NEURONTIN600 MG PO; +SIMVASTATIN40 MG PO; +TYLOPHEN500 MG PO; +ULTRAM 50MG TAB50 MG PO; +VITAMIN D250 MCG PO; +XELJANZ XR11 MG PO; +ZETIA10 MG PO
== END ==
LOC: M.MRI 11:00
DX: S83.231A Complex tear of medial meniscus, current injury, right knee, initial encounter (principal); M17.11 Unilateral primary osteoarthritis, right knee; M25.461 Effusion, right knee; M71.21 Synovial cyst of popliteal space [Baker], right knee; X58.XXXA Exposure to other specified factors, initial encounter; Y93.89 Activity, other specified; Y92.89 Other specified places as the place of occurrence of the external cause; Y99.8 Other external cause status

== ENCOUNTER 2019-10-24 07:02 | Observation (INO) | payer OTHER ==
[2019-10-17 10:48] LABS: HEMATOCRIT 30.8 % (37.0-47.0); HEMOGLOBIN 10.4 gm/dL (12.0-15.0); MCH 31.6 pg (26.0-34.0); MCHC 33.8 g/dL (28.0-37.0); MCV 93.4 fL (80.0-100.0); MPV 8.2 fl. (7.2-11.1); RBC 3.3 mil/uL (4.20-5.00); RDW-CV 14.1 % (10.5-14.5); WBC 6.5 thou/uL (4.0-11.0)
[2019-10-17 11:00] LABS: URINE BILIRUBIN NEGATIVE (Negative); URINE BLOOD NEGATIVE (Negative); URINE CLARITY CLEAR; URINE COLOR YELLOW; URINE GLUCOSE-RANDOM NEGATIVE (Negative); URINE KETONES NEGATIVE (Negative); URINE LEUKOCYTES-REFLEX NEGATIVE (Negative); URINE NITRITE-REFLEX NEGATIVE (Negative); URINE PROTEIN NEGATIVE (Negative); URINE UROBILINOGEN 0.2 E.U./dl (0.2-1.0)
[2019-10-17 11:03] LABS: PROTIME 10.1 Seconds (9.20-11.50)
[2019-10-17 11:26] LABS: ALBUMIN 3.9 g/dL (3.4-5.0); CALCIUM 8.5 mg/dL (8.5-10.1); CREATININE 1.1 mg/dL (0.6-1.3); POTASSIUM 4.1 mmol/L (3.5-5.1); TOTAL BILIRUBIN 0.3 mg/dL (<0.1-1.0)
--- NOTE | 2019-10-17 15:31 | EKG ---
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: : 1950 Requested By: Roderick Galvin Order Number: [id number] MD: Viktor Deleon Measurements Intervals [place] Rate: 86 P: 37 MD: 156 QRS: 16 QRSD: 86 T: 224 QT: 340 QTc: 407 Interpretive Statements Sinus rhythm Nonspecific T abnormalities, diffuse leads No previous ECG available for comparison Electronically Signed On 10-17-2019 15:29:34 CDT by Viktor Deleon [email or web address] <ELECTRONICALLY SIGNED> By: Viktor Deleon MD, [facility] 10/17/19 1529 1024 [facility] Viktor Deleon MD, FACC /EPI
[~2019-10-24] VITALS: Ht 160 cm; Wt 74.8 kg
[2019-10-24 08:00] VITALS: BP 153/74
[2019-10-24 16:00] VITALS: BP 138/56
[2019-10-24 17:33] VITALS: BP 141/56
[2019-10-24 20:00] VITALS: BP 130/57
[2019-10-25] VITALS: BP 123/54
[2019-10-25 04:00] VITALS: BP 133/56
[2019-10-25 08:06] VITALS: BP 121/64
--- NOTE | 2019-10-25 11:37 | OP ---
[address] [address] OPERATIVE REPORT Name: HILARIO FAY Room: [address] M.R.#: [id number] Admission: 10/24/19 Attend Phys: Lobo Bullard Discharge: Date of : 50 Report #: [id number] THIS REPORT FOR: //name// cc: Wilton Colon Brad DO ~ THIS REPORT FOR: //name// CC: Wilton Madden DATE OF SERVICE: 10/24/2019 PREOPERATIVE DIAGNOSIS: Right knee osteoarthritis. POSTOPERATIVE DIAGNOSIS: Right knee osteoarthritis. PROCEDURE: Right total knee arthroplasty. SURGEON: Roderick Galvin II, DO. DIRECTOR BUSINESS: MARY Espinosa. ANESTHESIA: General endotracheal. ESTIMATED BLOOD LOSS: 50 mL. ANTIBIOTICS: Ancef preoperatively. DRAINS: Medium Hemovac. COMPLICATIONS: None. CONDITION: Stable to recovery room. IMPLANTS: Listed in operative record and progress note. BRIEF HISTORY: The patient was seen in the preoperative area. Preoperative H and P was performed. Site was marked, questions were answered. Risks and benefits were discussed with the patient in detail about surgery. The patient wished to proceed, assuming all risks. DESCRIPTION OF PROCEDURE: The patient was taken to the operative suite and placed supine on the operating table, given appropriate anesthesia. A well-padded tourniquet applied to upper thigh, which was inflated to 300 mmHg after gravity exsanguination. The operative knee was sterilely prepped and [facility] [address] [place] [address] OPERATIVE REPORT Name: SUMEET,HILARIO Dakota Room: [address]R.#: [id number] Admission: 10/24/19 Attend Phys: Lobo Bullard Discharge: Date of : 50 Report #: [id number] draped. Surgery began by midline incision. This was carried down to the subcutaneous tissues. A medial parapatellar arthrotomy was performed and carried down to bone. The patella was then everted and excess soft tissues were removed from around the femur. Femoral cutting block was then applied, checked with drop ramu for rotational alignment, pinned in appropriate position and appropriate cuts were made. A 4-in-1 cutting block was then applied, checked for rotational alignment, pinned in appropriate position and appropriate cuts were made. The tibia was then exposed. Excess meniscus was removed. Retractor was placed on collateral ligaments. The tibial cutting block was then applied, pinned in appropriate position, checked with a drop ramu for rotational alignment and slope and appropriate cut was made. The tibial bone was removed. Tibial base plate was then applied and checked for rotational alignment with a drop ramu and pinned in appropriate position. Femur was then applied and box cut was reamed. This was then trialed with appropriate spacer, which showed excellent fit and fill and excellent stability of the knee through all range of motion. The patella was then reamed in appropriate fashion and sized to appropriate size. Three peg holes were drilled and it was then trialed and showed excellent flexion and extension, excellent tracking of the patella within the groove. These trials were then removed. The tibia was punched in appropriate fashion. Bone ends were cleansed with Pulsavac irrigation and cement was mixed and applied to final implants. These were then malleted into position and held the knee in extension and compressed to allow cement to cure. After it cured, excess was removed using a [place] and osteotome. Wound was then copiously irrigated and the final spacer was then malleted into position. Tourniquet was deflated. Hemostasis was obtained with electrocautery. Pain cocktail was injected. PRP gel sprayed throughout the internal aspects of the knee. Medium Hemovac drain was applied. Capsule was closed with #2 FiberWire and #1 Vicryl in [id number] fashion. Skin was closed with 2-0 Vicryl and running 3-0 Monocryl. Dermabond and sterile dressing applied. Ty wrap and PolarCare applied. The patient transported to recovery room in stable condition. Counts were correct throughout the procedure. <ELECTRONICALLY SIGNED> By: Roderick Galvin II, 10/25/19 1137 2226 [id number] Galvin II DO /nt
[2019-10-25 12:00] VITALS: BP 133/51
[2019-10-25 13:16] VITALS: BP 121/64
[2019-10-25] MEDS ORDERED: XARELTO10 M1 PO (13:26)
[2019-10-25] MEDS ORDERED: PERCOCET 5-3251 EACH PO (13:26)
[2019-10-25 13:27] VITALS: BP 121/64
== END 2019-10-25 15:46 | disposition home health service (06) ==
LOC: M.TBA 07:02 → M.PRE 07:06 → M.3W 15:11 → M.PRE 16:42 → M.3W 10-25 15:46
PROVIDERS: Orthopaedic Surgery; ADMIT Internal Medicine
DX: Z03.818 Encounter for observation for suspected exposure to other biological agents ruled out (principal); M17.11 Unilateral primary osteoarthritis, right knee

== ENCOUNTER → 2020-01-26 | Outpatient (CLI) | payer OTHER ==
[~2020-01-26] MED LIST changes: +PERCOCET 5-3251 EACH PO; +XARELTO10 M1 PO
== END ==
LOC: M.RAD 10:00
PROVIDERS: ATTEND Family Medicine
DX: M85.88 Other specified disorders of bone density and structure, other site (principal); R92.8 Other abnormal and inconclusive findings on diagnostic imaging of breast; N63.23 Unspecified lump in the left breast, lower outer quadrant; Z78.0 Asymptomatic menopausal state

== ENCOUNTER 2020-03-19 12:44 | Inpatient (IN) | payer OTHER ==
[~2020-03-19] VITALS: Ht 160 cm; Wt 91.6 kg
[2020-03-19 12:46] VITALS: BP 139/50
[2020-03-19 13:27] LABS: HEMATOCRIT 31.6 % (37.0-47.0); HEMOGLOBIN 10.6 gm/dL (12.0-15.0); MCH 29.3 pg (26.0-34.0); MCHC 33.6 g/dL (28.0-37.0); MCV 87.2 fL (80.0-100.0); MPV 7.2 fl. (7.2-11.1); NUCLEATED RBCS 0 /100WBC; PLATELET COUNT* 308 thou/uL (150-400); RBC 3.62 mil/uL (4.20-5.00); RDW-CV 17.5 % (10.5-14.5); WBC 10.7 thou/uL (4.0-11.0)
[2020-03-19 13:36] LABS: INR 1.1; PROTIME 11.4 Seconds (9.20-11.50)
--- NOTE | 2020-03-19 13:50 | NUR ---
PT REFUSES BIPAP INTERVENTION, DR LOPEZ NOTIFIED
[2020-03-19 13:54] LABS: ABSOLUTE LYMPHOCYTES 0.1 thou/uL (0.8-5.3); ABSOLUTE MONOCYTES 0.3 thou/uL (0.0-1.2); ABSOLUTE NEUTROPHILS 10.3 thou/uL (1.6-8.1); PLATELET ESTIMATE ADEQUATE
[2020-03-19 13:57] LABS: CALCIUM 6.6 mg/dL (8.5-10.1); CREATININE 1.7 mg/dL (0.6-1.3); POTASSIUM 3.8 mmol/L (3.5-5.1)
[2020-03-19 14:07] LABS: ALBUMIN 2.8 g/dL (3.4-5.0); TOTAL BILIRUBIN 0.5 mg/dL (<0.1-1.0); TOTAL PROTEIN 7.9 g/dL (6.4-8.2)
[2020-03-19 14:15] LABS: BE -4.2 mmol/L (-2 to +3); PCO2 26.9 mmHg (35.0-45.0); PO2 63.4 mmHg (75.0-100.0); pH 7.457 (7.340-7.450)
[2020-03-19 15:24] VITALS: BP 128/61
--- NOTE | 2020-03-19 16:02 | EKG ---
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 : 1950 Requested By: Tre Hill Order Number: [id number] MD: Viktor Deleon Measurements Intervals [place] Rate: 99 P: 38 VA: 154 QRS: -3 QRSD: 60 T: 192 QT: 406 QTc: 522 Interpretive Statements Sinus rhythm Low voltage, precordial leads Abnormal R-wave progression, early transition Nonspecific T abnormalities, diffuse leads Prolonged QT interval Compared to ECG 10/17/2019 10:24:52 Low QRS voltage now present Prolonged QT interval now present T-wave abnormality still present Electronically Signed On 03-19-2020 16:02:31 CDT by Viktor Deleon [email or web address] <ELECTRONICALLY SIGNED> By: Viktor Deleon MD, [facility] 03/19/20 1602 1307 1307 Viktor Deleon MD, [facility] /EPI
[2020-03-19 17:00] VITALS: BP 124/59
[2020-03-19 18:41] LABS: ALBUMIN 2.3 g/dL (3.4-5.0); CREATININE 1.3 mg/dL (0.6-1.3); DIRECT BILIRUBIN 0.1 mg/dL (<0.1-0.3); POTASSIUM 3.8 mmol/L (3.5-5.1); TOTAL BILIRUBIN 0.3 mg/dL (<0.1-1.0); TOTAL PROTEIN 5.6 g/dL (6.4-8.2)
[2020-03-19 18:50] LABS: CALCIUM 5.6 mg/dL (8.5-10.1)
--- NOTE | 2020-03-19 20:19 | NUR ---
REPORT RECIEVED FROM ER. PT TAKEN TO ROOM 221 ON HEATED HIGH FLOW ON 40L AT 98%. ADMISSION DOCUMENTED. MEDS GIVEN PER E-MAR. REPORT GIVEN TO TRAY PACKER RN.
[2020-03-19 21:00] VITALS: BP 124/64
[2020-03-20] VITALS (33 sets, daily range): BP systolic 75–143; BP diastolic 38–70
[2020-03-20 01:38] LABS: BE -7.6 mmol/L (-2 to +3); PCO2 28.2 mmHg (35.0-45.0); PO2 72.2 mmHg (75.0-100.0); pH 7.379 (7.340-7.450)
[2020-03-20 01:58] LABS: ABSOLUTE LYMPHOCYTES 0.2 thou/uL (0.8-5.3); ABSOLUTE MONOCYTES 0.4 thou/uL (0.0-1.2); ABSOLUTE NEUTROPHILS 9.7 thou/uL (1.6-8.1); BASOPHILS 0.3 %; HEMATOCRIT 29.5 % (37.0-47.0); HEMOGLOBIN 9.9 gm/dL (12.0-15.0); MCH 29.5 pg (26.0-34.0); MCHC 33.7 g/dL (28.0-37.0); MCV 87.6 fL (80.0-100.0); MONOCYTES 4.2 %; MPV 7.3 fl. (7.2-11.1); NUCLEATED RBCS 0 /100WBC; PLATELET COUNT* 296 thou/uL (150-400); POLYS 93.5 %; RBC 3.37 mil/uL (4.20-5.00); RDW-CV 17.8 % (10.5-14.5); WBC 10.4 thou/uL (4.0-11.0)
[2020-03-20 02:10] LABS: ALBUMIN 2.4 g/dL (3.4-5.0); CALCIUM 6.6 mg/dL (8.5-10.1); CREATININE 1.3 mg/dL (0.6-1.3); MAGNESIUM 2.1 mg/dL (1.8-2.4); POTASSIUM 3.5 mmol/L (3.5-5.1); TOTAL BILIRUBIN 0.3 mg/dL (<0.1-1.0); TOTAL PROTEIN 7.3 g/dL (6.4-8.2)
[2020-03-20] MEDS ORDERED: IRON325 M1 PO (02:21)
--- NOTE | 2020-03-20 06:40 | NUR ---
PT O2 DESAT FROM HIGHFLOW, PLACED PT ON BIPAP, O2 SAT JUAN DEL ANGEL CALLED FOR PT, O2 ADJUSTED, TEST ORDERED. PT CURRENTLY STABLE AT 92 O2 SAT ON BIPAP 70% AND 23 RESPERATION.
[2020-03-20 09:09] LABS: BE -5.5 mmol/L (-2 to +3); PCO2 27.9 mmHg (35.0-45.0); PO2 71.5 mmHg (75.0-100.0)
[2020-03-20 10:19] LABS: URINE BILIRUBIN NEGATIVE (Negative); URINE BLOOD 1+ (Negative); URINE CLARITY CLEAR; URINE COLOR YELLOW; URINE GLUCOSE-RANDOM TRACE (Negative); URINE KETONES NEGATIVE (Negative); URINE LEUKOCYTES-REFLEX NEGATIVE (Negative); URINE NITRITE-REFLEX NEGATIVE (Negative); URINE PROTEIN 1+ (Negative); URINE SPECIFIC GRAVITY 1.025 (1.005-1.030); URINE UROBILINOGEN 0.2 E.U./dl (0.2-1.0)
[2020-03-20 10:26] LABS: CRYSTALS None Seen /LPF (None Seen); FINE GRANULAR CASTS 0-3 Few /LPF (None Seen); MUCUS 0-3 Light strn/LPF (None Seen); SQUAMOUS 4-10 Moderate /LPF (0-3); URINE RBC 3-10 Few /HPF (0-2); URINE WBC-REFLEX 0-5 Rare /HPF (0-5)
--- NOTE | 2020-03-20 13:44 | NUR ---
REPORT GIVEN TO KAREY CASTELLANO FOR ROOM 7 IN ICU PT WAS INTUBATED AND SENT VIA BED
--- NOTE | 2020-03-20 13:47 | NUR ---
Nutrition: Pt COVID likely. Assessed today for DX of sepsis. Per progress notes, likely will get endotrach intubation. Will follow POC and needs for nutrition support 03/21/20.
--- NOTE | 2020-03-20 15:00 | NUR ---
RIGHT BASILIC VESSEL ACCESSED FOR 5 COSTA RICAN TRIPLE PICC. LINE PRE-TRIMMED TO 35CM AND ADVANCED TO THE ZERO CANDIE WITH NO RESISTANCE MET. UPPER ARM CIRCUMFERENCE ABOVE INSERTION SITE=13". SHERLOCK MAGNET AND 3CG CONFIRMATION OF TIP TERMINATION AT THE CAVOATRIAL JUNCTION APPRECIATED. GUIDEWIRE REMOVED, LINE FLUSHED AND INSERTION SITE DRESSED. REPORT GIVEN TO KAREY CASTELLANO.
--- NOTE | 2020-03-20 15:31 | NUR ---
CM spoke witht Pt's via phone. Pt is normally independent, assists as needed. Pt has a walker and cane for mobility. Hx of [facility] HH. No hx of SNF. Hx of ARU. Pt covid pending. On 45L o2 and using bipap. Pt transferred to ICU7.
[2020-03-20 15:39] LABS: BE -8.4 mmol/L (-2 to +3); PCO2 33.7 mmHg (35.0-45.0); PO2 79.5 mmHg (75.0-100.0); pH 7.317 (7.340-7.450)
--- NOTE | 2020-03-20 16:17 | NUR ---
FAMILY BELONGINGS BROUGHT TO PT ROOM BY 2 WEST STAFF. RINGS AND BRACELET REMOVED. SECURITY CONTACTED TO PUT IN SAFE. SECURITY WILL NOTIFY WHEN PLAN IN PLACE SINCE PT IS COVID PENDING. Dakota JOLLEY RN
[2020-03-20 17:01] LABS: ABSOLUTE LYMPHOCYTES 0.3 thou/uL (0.8-5.3); ABSOLUTE MONOCYTES 0.6 thou/uL (0.0-1.2); ABSOLUTE NEUTROPHILS 10.4 thou/uL (1.6-8.1); BASOPHILS 0.2 %; HEMATOCRIT 25.7 % (37.0-47.0); HEMOGLOBIN 8.6 gm/dL (12.0-15.0); LYMPHOCYTES 2.5 %; MCH 29.6 pg (26.0-34.0); MCHC 33.5 g/dL (28.0-37.0); MCV 88.4 fL (80.0-100.0); MONOCYTES 5.1 %; NUCLEATED RBCS 0 /100WBC; PLATELET COUNT* 278 thou/uL (150-400); POLYS 92.2 %; RDW-CV 17.8 % (10.5-14.5); WBC 11.3 thou/uL (4.0-11.0)
[2020-03-20 17:14] LABS: ALBUMIN 2.2 g/dL (3.4-5.0); CALCIUM 6.5 mg/dL (8.5-10.1); CREATININE 1.2 mg/dL (0.6-1.3); MAGNESIUM 2.2 mg/dL (1.8-2.4); PHOSPHORUS* 2.5 mg/dL (2.5-4.9); TOTAL BILIRUBIN 0.5 mg/dL (<0.1-1.0); TOTAL PROTEIN 6.4 g/dL (6.4-8.2)
[2020-03-20 17:16] LABS: POTASSIUM 2.9 mmol/L (3.5-5.1)
--- NOTE | 2020-03-20 20:06 | NUR ---
LATE ENTRY: CARE ASSUMED FROM ARRON, RN AFTER PT INTUBATED IN ROOM 200. WEST PLACED. OG PLACED W/ CONFIRMATION KUB. PERSONAL BELONGINGS BROUGHT TO ROOM. SEE NOTE. ESR: PT CURRENTLY LYING IN BED SEDATED W/ RESTRAINTS IN PLACE. OG TO LIS. WEST TO D/D. BILAT RESTRAINTS. PICC TO MARIANN. A LINE PLACED TO LT RADIAL BY ANESTHESIA. NO FURTHER BM. PT COUGHING AND DIFFICULT TO SEDATE W/ TURNS AND ORAL CARE. ALL PRESONAL BELONGINGS INCLUDING PURSE, [place] RINGS, AND BRACELET GIVEN TO , ALBERTO, AT APPROX 1800. MULTIPLE UPDATES TO . REQUESTED FROM 1 FAMILY MEMBER TO GIVE UPDATES TO D/T 4+ FAMILY MEMBERS CALLING THIS RN FOR UPDATE SINCE PT ARRIVAL AT 1400. VERBALIZED UNDERSTANDING AND IS UNSURE OF WHOM THIS MAY BE AT THIS TIME.
[2020-03-21] VITALS (43 sets, daily range): BP systolic 105–137; BP diastolic 40–53
[2020-03-21 05:40] LABS: ABSOLUTE LYMPHOCYTES 0.2 thou/uL (0.8-5.3); ABSOLUTE MONOCYTES 0.3 thou/uL (0.0-1.2); ABSOLUTE NEUTROPHILS 9.4 thou/uL (1.6-8.1); BASOPHILS 0.1 %; HEMOGLOBIN 8.2 gm/dL (12.0-15.0); LYMPHOCYTES 1.5 %; MCH 30.2 pg (26.0-34.0); MCHC 34.1 g/dL (28.0-37.0); MCV 88.5 fL (80.0-100.0); MONOCYTES 3.5 %; MPV 7.8 fl. (7.2-11.1); NUCLEATED RBCS 0 /100WBC; PLATELET COUNT* 287 thou/uL (150-400); POLYS 94.9 %; RBC 2.71 mil/uL (4.20-5.00); RDW-CV 18.3 % (10.5-14.5)
[2020-03-21 05:50] LABS: ALBUMIN 2.1 g/dL (3.4-5.0); CALCIUM 6.2 mg/dL (8.5-10.1); CREATININE 1.1 mg/dL (0.6-1.3); MAGNESIUM 2.3 mg/dL (1.8-2.4); TOTAL BILIRUBIN 0.2 mg/dL (<0.1-1.0); TOTAL PROTEIN 6.2 g/dL (6.4-8.2)
[2020-03-21 09:03] LABS: BE -6.7 mmol/L (-2 to +3); PCO2 36.3 mmHg (35.0-45.0); PO2 71.5 mmHg (75.0-100.0); pH 7.328 (7.340-7.450)
--- NOTE | 2020-03-21 10:58 | NUR ---
INCREASED VERSED TO 6MG/HR PER DR BARBA REQUEST. DR BARBA WOULD LIKE PT HEAVILY SEDATED D/T INCREASE OF PEEP. Dakota JOLLEYRN
--- NOTE | 2020-03-21 12:19 | CON ---
[address] [address] CONSULTATION Name: HILARIO FAY Room: [address] IN .R.#: [id number] Admission: 03/19/20 Attend Phys: Vanna Monae MD Discharge: Date of : 50 Report #: [id number] THIS REPORT FOR: //name// cc: Wilton Colon DO Wilton Colon DO ~ THIS REPORT FOR: //name// DATE OF SERVICE: 03/19/2020 Consult has been requested by Dr. Monae. INDICATION FOR CONSULTATION: Acute hypoxemic respiratory failure. HISTORY OF PRESENT ILLNESS: A 70-year-old female with past medical history as mentioned below. I have suspicion that she may have previously undiagnosed obstructive sleep apnea, but other than that, she is not known to have a cardiac or respiratory disease retirement. She does have hypertension. The patient is now admitted with an acute respiratory illness. She has developed progressive increasing shortness of breath over the last 3-4 days. She is also reported to have been febrile, has been coughing. There is no sputum production. She does not have chest pain. She has mild swelling of lower extremities only. There is no calf pain. She does not have upper respiratory complaints. The patient does report that she has been having chills. She has had changes in appetite. The patient upon arrival was found to be profoundly hypoxemic. Currently, the patient is on 100% FiO2 with 40 liters flow and is maintaining O2 saturation around 94-96%. Her initial creatinine was also elevated to 1.7 and CPK was also mildly elevated and therefore she has been fluid resuscitated. She does have a low-grade fever at 38.3. The patient answers to the negative for 12 questions for review of systems except as mentioned above. PAST MEDICAL HISTORY: Hypertension, rheumatoid arthritis, has been on immunomodulatory therapy. I do not have a measure of her left ventricular ejection fraction available at this time. Also, history of hyperlipidemia, right foot and distal leg weakness, has had fasciotomies and a previous spinal fusion and laminectomy, longstanding history of back pain. SOCIAL HISTORY: Lifetime nonsmoker. No known history of heavy alcohol use or illegal drug use. CURRENT MEDICATIONS: List in [employer] reviewed. HOME MEDICATIONS: List also in [employer] reviewed. FAMILY HISTORY: There is no known history of COVID-19 in her family. PHYSICAL EXAMINATION: [place] [address] CONSULTATION Name: HILARIO FAY Room: [address]#: [id number] Admission: 03/19/20 Attend Phys: Vanna Monae MD Discharge: Date of : 50 Report #: [id number] GENERAL: She is alert, awake and oriented. She appears to be anxious. VITAL SIGNS: Has a pulse of 91, respiratory rate is elevated between 26 and 32. She is saturating 94-96%. She is on 40 liters flow with 100% FiO2 on a heated high-flow oxygenator. She has a high-grade fever of 38.3. HEENT: Head is normocephalic and atraumatic. Pupils are equal and reactive. She appears to have a narrow airway. NECK: Does not show raised JVP, asymmetry, mass or lymph nodes. CHEST: Symmetrical expansion on inspection and palpation. On auscultation, breath sounds are bilaterally equal, but diminished. I do not hear any added sounds. HEART: Regular. There is no murmur. ABDOMEN: Soft and nontender. EXTREMITIES: Lower extremities show trace edema, no calf tenderness. SKIN: Dry and intact. NEUROLOGICAL: Moves all extremities bilaterally equally and spontaneously with no focal deficit identified. LABORATORY DATA: The patient's chest x-ray is reviewed and compared with the previous chest x-ray. She does have atypical looking infiltrates bilaterally suspicious of COVID-19, atypical infections can also lead to this picture. The patient's lab work including mild elevation in creatinine and CPK in [facility] reviewed. Coagulation studies in [facility] reviewed. I do not have a D-dimer. Arterial blood gas consistent with acute hypoxemic respiratory failure in [facility] reviewed. COVID-19 antigen is negative. PCR is pending. Urinalysis is pending. ASSESSMENT AND PLAN: 1. Acute hypoxemic respiratory failure. Presentation is consistent with viral or atypical pneumonia. Considering the COVID-19 pandemic, that still remains the most likely diagnosis. Other atypical infections and other viruses can also lead to this picture. At this time, I do feel that she needs to be treated with nebulized bronchodilators. I also do feel that she will benefit from a BiPAP while asleep and p.r.n. if she is able to tolerate and I strongly recommended the same to her. Recommended also placing on a continuous pulse ox. 2. Atypical infiltrates/pneumonia. I called the pharmacy and recommended that we go ahead and give her 1 dose of remdesivir considering the fact that the patient is severely hypoxemic and in severe respiratory failure and COVID-19 is still the most likely diagnosis. In case the PCR comes back negative, then we can subsequently discontinue remdesivir. The patient does need to be treated with steroids as well, she is already on Solu-Medrol, I would continue at the present dose at this time. In addition, I would like to cover for other possible etiologies as well. I agree with azithromycin and will continue. We will broaden coverage by switching ceftriaxone over to cefepime should the patient declined or failed to improve, I will have a low threshold of adding linezolid. If possible, we will do a sputum culture. Other cultures and serologies are also ordered. [address] [address] CONSULTATION Name: HILARIO FAY Room: [address] IN [facility]#: [id number] Admission: 03/19/20 Attend Phys: Vanna Monae MD Discharge: Date of : 50 Report #: [id number] 3. Acute renal failure/mild rhabdomyolysis. The patient has been fluid resuscitated well at this time. I will repeat labs at 6:00 p.m. and then reassess. Note that she is significantly hypoxemic and therefore, I will be careful with fluids. If the creatinine is trending downwards and the CPK is also trending downwards, then I may consider discontinuing fluids at that point. 4. Evaluation for thromboembolic phenomena. We will check a D-dimer. If D-dimer is significantly elevated, I will consider fully anticoagulating the patient and evaluating further for thromboembolism. 5. History of rheumatoid arthritis. 6. Longstanding history of back pain. 7. Gastrointestinal prophylaxis. She is on Protonix and DVT prophylaxis for now. She is on prophylactic dose Lovenox. The patient is critically ill at this time. Total time spent providing critical care to this patient today exceeds 45 minutes. <ELECTRONICALLY SIGNED> By: Leonardo Dillon MD 03/21/20 1219 1710 [id number] Dillon MD /nt
--- NOTE | 2020-03-21 14:46 | NUR ---
ICU rounds: Intubated. Getting plasma. Covid positive.
--- NOTE | 2020-03-21 15:31 | 2DMMODE ---
[place] [address] 2 D/M-MODE ECHOCARDIOGRAM Name: HILARIO FAY Room: [address] ADM [place] .R.#: [id number] Admission: 03/19/20 Attend Phys: Vanna Monae, Discharge: Date of : 50 Date of Service: 03/21/20 1531 Report #: [id number] THIS REPORT FOR: cc: Wilton Colon Brad DO Liston, Michael J. MD [facility] ~ APPROVED REPORT Study performed: 03/21/2020 11:01:32 EXAM: Limited 2D, Doppler, and color-flow Echocardiogram Patient Location: Bedside BSA: 1.82 HR: 87 bpm BP: 124/64 mmHg Other Information Study Quality: AdequateFair 2D Dimensions IVSd: 9.72 (7-11mm) LVOT Diam: 18.62 (18-24mm) LVDd: 44.42 mm PWd: 9.19 (7-11mm) Ascending Ao: 27.92 (22-36mm) LVDs: 38.93 (25-40mm) Aortic Root: 24.05 mm Volumes Left Atrial Volume (Systole) LA ESV Index: 23.90 mL/m2 Aortic Valve AoV Peak Francisco.: 0.99 m/s AO Peak Gr.: 3.92 mmHg LVOT Max P.62 mmHg AO Mean Gr.: 2.48 mmHg LVOT Mean P.37 mmHg LVOT Max V: 0.81 m/s AO V2 VTI: 22.61 cm LVOT Mean V: 0.54 m/s MILTON (VTI): 2.17 cm2 LVOT V1 VTI: 18.01 cm Mitral Valve E/A Ratio: 0.98 MV Decel. Time: 219.63 ms MV E Max Francisco.: 0.97 m/s MV PHT: 63.69 ms MVA (PHT): 3.45 [place]2 [place] [address] 2 D/M-MODE ECHOCARDIOGRAM Name: SUMEETHILARIO Room: [address] IN [facility].#: [id number] Admission: 03/19/20 Attend Phys: Vanna Monae, Discharge: Date of : 50 Date of Service: 03/21/20 1531 Report #: [id number] Pulmonary Valve PV Peak Francisco.: 0.94 m/s PV Peak Gr.: 3.50 mmHg Left Ventricle The left ventricle is normal size. There is normal left ventricular wall thickness. The left ventricular systolic function is normal. LVEF is 55%. Right Ventricle The right ventricle is normal size. The right ventricular systolic function is normal. Atria The left atrium size is normal. Interatrial septum not well visualized. The right atrium size is normal. Aortic Valve The aortic valve is normal in structure. No aortic regurgitation is present. There is no aortic valvular stenosis. Mitral Valve The mitral valve is normal in structure. There is no mitral valve regurgitation noted. No evidence of mitral valve stenosis. Tricuspid Valve The tricuspid valve is normal in structure. There is no tricuspid valve regurgitation noted. Pulmonic Valve The pulmonary valve is normal in structure. There is no pulmonic valvular regurgitation. Great Vessels The aortic root is normal in size. IVC is not visualized. Pericardium There is no pericardial effusion. <Conclusion> There is normal [place] [address] 2 D/M-MODE ECHOCARDIOGRAM Name: HILARIO FAY Room: [address] IN ..#: [id number] Admission: 03/19/20 Attend Phys: Vanna Monae, Discharge: Date of : 50 Date of Service: 03/21/201530 Report #: [id number] The left ventricular systolic function is normal. LVEF is 55%. <ELECTRONICALLY SIGNED> By: Jagdeep Espinoza MD, [facility] 03/21/20 [phone] Jagdeep Espinoza MD, FACC /INF
--- NOTE | 2020-03-21 19:22 | NUR ---
PT CURRENTLY LYING IN BED W/ EYES CLOSED. FENTANYL AND VERSED GTT CONT TO ACHIEVE RASS OF -3. TOLERATING CURRENT VENT SETTINGS WELL. MAINTAINING SAT IN MID 90'S. 2ND UNIT PLASMA INFUSING AT THIS TIME. VERBALIZED TO RN NOC DR BELLE REQUESTED LABS AND ABG BE DRAWN AFTER 2ND UNIT COMPLETED. NO RXN TO PLASMA OBSERVED. WEST TO D/D. TOLERATING TF AT THIS TIME. AFEBRILE T/O SHIFT. EXTREMITIES ELEVATED. RESTRAINTS IN PLACE. THIS RN VERBALIZED TO BOTH AND DIL UPDATES, EDUCATION, AND, POC. Dakota JOLLEY, RN
[2020-03-21 20:26] LABS: BE -4.7 mmol/L (-2 to +3); PCO2 38.5 mmHg (35.0-45.0); PO2 90.6 mmHg (75.0-100.0); pH 7.346 (7.340-7.450)
[2020-03-21 20:32] LABS: HEMATOCRIT 24.4 % (37.0-47.0); MCH 28.8 pg (26.0-34.0); MCV 87.4 fL (80.0-100.0); MPV 7.8 fl. (7.2-11.1); NUCLEATED RBCS 0 /100WBC; PLATELET COUNT* 295 thou/uL (150-400); RBC 2.79 mil/uL (4.20-5.00); RDW-CV 18.5 % (10.5-14.5); WBC 11.9 thou/uL (4.0-11.0)
[2020-03-21 20:46] LABS: ALBUMIN 2.4 g/dL (3.4-5.0); CALCIUM 6.1 mg/dL (8.5-10.1); CREATININE 1.3 mg/dL (0.6-1.3); MAGNESIUM 1.9 mg/dL (1.8-2.4); PHOSPHORUS* 2.5 mg/dL (2.5-4.9); TOTAL BILIRUBIN 0.3 mg/dL (<0.1-1.0); TOTAL PROTEIN 6.8 g/dL (6.4-8.2)
[2020-03-21 21:04] LABS: ABSOLUTE LYMPHOCYTES 0.1 thou/uL (0.8-5.3); ABSOLUTE MONOCYTES 0.1 thou/uL (0.0-1.2); ABSOLUTE NEUTROPHILS 11.7 thou/uL (1.6-8.1)
[2020-03-21 21:05] LABS: ANISOCYTOSIS 1+; LARGE PLATELETS OCCASIONAL; PLATELET ESTIMATE ADEQUATE
[2020-03-22] VITALS (33 sets, daily range): BP systolic 118–153; BP diastolic 49–68
--- NOTE | 2020-03-22 05:00 | NUR ---
PT. REMAINS SEDATED ON VENTILATOR WITH VERSED AND FENTANYL GTT'S. RAAS -[address] BARBA ORDER. POTASSIUM 3.0, REPLACING AT THIS TIME. LR RUNNING AT 80CC/HR X1 BAG. PT. AROUSABLE, ABLE TO FOLLOW COMMANDS. WILL CONTINUE TO MONITOR
[2020-03-22 06:41] LABS: ABSOLUTE LYMPHOCYTES 0.2 thou/uL (0.8-5.3); ABSOLUTE MONOCYTES 0.4 thou/uL (0.0-1.2); ABSOLUTE NEUTROPHILS 10.7 thou/uL (1.6-8.1); BASOPHILS 0.1 %; HEMATOCRIT 24.4 % (37.0-47.0); HEMOGLOBIN 8.1 gm/dL (12.0-15.0); LYMPHOCYTES 1.6 %; MCH 29.7 pg (26.0-34.0); MCHC 33.2 g/dL (28.0-37.0); MCV 89.5 fL (80.0-100.0); MONOCYTES 3.2 %; NUCLEATED RBCS 1 /100WBC; PLATELET COUNT* 309 thou/uL (150-400); POLYS 95.1 %; RBC 2.73 mil/uL (4.20-5.00); RDW-CV 18.5 % (10.5-14.5); WBC 11.3 thou/uL (4.0-11.0)
[2020-03-22 06:56] LABS: ALBUMIN 2.3 g/dL (3.4-5.0); CALCIUM 6.1 mg/dL (8.5-10.1); CREATININE 1.3 mg/dL (0.6-1.3); MAGNESIUM 1.9 mg/dL (1.8-2.4); PHOSPHORUS* 1.8 mg/dL (2.5-4.9); POTASSIUM 3.3 mmol/L (3.5-5.1); TOTAL BILIRUBIN 0.4 mg/dL (<0.1-1.0); TOTAL PROTEIN 6.7 g/dL (6.4-8.2)
[2020-03-22 09:05] LABS: BE -2.9 mmol/L (-2 to +3); PCO2 41.8 mmHg (35.0-45.0); PO2 84.6 mmHg (75.0-100.0)
[2020-03-22 15:19] LABS: BE -1.5 mmol/L (-2 to +3); PO2 80.2 mmHg (75.0-100.0); pH 7.369 (7.340-7.450)
--- NOTE | 2020-03-22 18:37 | NUR ---
PT LYING IN BED W/ EYES CLOSED AT THIS TIME. SEDATION AND RESTRAINTS CONT. DOES BECOME EXTREMELY AGITATED W/ STIMULATION. DESATS TO HIGH 70'S TO LOW 80'S WHEN AGITATED. A LINE IN PLACE. SLIGHTLY HYPERTENSIVE T/O DAY W/ SBP IN 150'S AT TIMES, EVEN WHILE AT REST. DR BARBA MADE AWARE BY THIS RN. NO NEW ORDERS FOR BP CONTROL. NO CHANGE IN ETT. SETTINGS SWITCHED FROM AC TO PC DURING ROUNDING W/ RT AND DR BARBA. PT SEEMS TO BE TOLERATING WELL AND SYNCHING WELL WITH VENT. ABG IMPROVED THIS AFTERNOON FROM EARLIER THIS AM. THIS RN DID HAVE TO INCREASE O2 TO 100% WHEN REPOSITIONING D/T DESAT. NO CHANGE IN SECRETIONS OBSERVED. LS RANGED FROM DIMINISHED TO DIM AND COARSE. ABLE TO COMPLETE ORAL CARE ONLY INTERMITTENTLY D/T INCREASED AGITATION WHEN ATTEMPTING. OG IN PLACE W/ VITAL HP INFUSING AT GOAL. PT TOLERATING W/ MINIMAL RESIDUALS. NO BM T/O SHIFT. ABDOMEN DOES APPEAR SLIGHTLY MORE DISTENDED. PASSING FLATUS. WEST TO D/D. ADEQUATE YELLOW URINE OUT. SKIN INTACT W/ GENERALIZED BRUISING. MEPILEX TO COCCYX FOR WOUND PREVENTION. EXTREMITIES ELEVATED W/ PILLOWS. TL PICC TO MARIANN. #20G TO LAC. ELYTES REPLACED PER PROTOCOL W/ K INFUSING AT THIS TIME AND PHOS PREVIOUSLY REPLACED. SEE MAR. SCDS ON. CONT ENHANCED PRECAUTIONS D/T COVID+. FACE WASHED AND VIOLETA CARE/WEST CARE COMPLETED. UNABLE TO COMPLETE BATH D/T INCREASED AGITATION. MULTIPLE UPDATES T/O SHIFT TO DTR IN [place]. Dakota JOLLEY, RN
--- NOTE | 2020-03-22 20:33 | NUR ---
INITAL ASSESMENT COMPLETED AT 1930. PT INTUBATED AND SEDATED ON VENTILATOR WITH FENTANYL AND VERSED DRIPS FOR SEDATION. NO SIGNS OF PAIN OR DISCOMFORT AT THAT TIME. FALL PRECAUTIONS IN PLACE, PT RESTRAINED WITH BILATERAL SOFT WRIST RESTRAINTS TO MAINTAIN ET TUBE, PICC, ART LINE AND WEST CATHETER.
[2020-03-23] VITALS (36 sets, daily range): BP systolic 123–152; BP diastolic 46–60
[2020-03-23 03:16] LABS: ABSOLUTE LYMPHOCYTES 0.1 thou/uL (0.8-5.3); ABSOLUTE MONOCYTES 0.3 thou/uL (0.0-1.2); ABSOLUTE NEUTROPHILS 9.8 thou/uL (1.6-8.1); BASOPHILS 0.4 %; HEMATOCRIT 24.2 % (37.0-47.0); HEMOGLOBIN 8.1 gm/dL (12.0-15.0); LYMPHOCYTES 1.3 %; MCH 29.6 pg (26.0-34.0); MCHC 33.7 g/dL (28.0-37.0); MCV 87.7 fL (80.0-100.0); MONOCYTES 2.6 %; MPV 7.7 fl. (7.2-11.1); NUCLEATED RBCS 0 /100WBC; PLATELET COUNT* 274 thou/uL (150-400); POLYS 95.7 %; RBC 2.76 mil/uL (4.20-5.00); RDW-CV 18.7 % (10.5-14.5); WBC 10.2 thou/uL (4.0-11.0)
[2020-03-23 03:36] LABS: ALBUMIN 2.1 g/dL (3.4-5.0); CALCIUM 6.4 mg/dL (8.5-10.1); CREATININE 1.2 mg/dL (0.6-1.3); MAGNESIUM 1.7 mg/dL (1.8-2.4); POTASSIUM 3.1 mmol/L (3.5-5.1); TOTAL BILIRUBIN 0.3 mg/dL (<0.1-1.0); TOTAL PROTEIN 6.3 g/dL (6.4-8.2)
[2020-03-23 09:37] LABS: PCO2 42.7 mmHg (35.0-45.0); PO2 68.8 mmHg (75.0-100.0); pH 7.351 (7.340-7.450)
[2020-03-23 09:38] LABS: BE -2.4 mmol/L (-2 to +3)
[2020-03-23 15:46] LABS: ALBUMIN 2.2 g/dL (3.4-5.0); DIRECT BILIRUBIN 0.2 mg/dL (<0.1-0.3); TOTAL BILIRUBIN 0.3 mg/dL (<0.1-1.0); TOTAL PROTEIN 6.2 g/dL (6.4-8.2)
[2020-03-23 15:48] LABS: CREATININE 1.1 mg/dL (0.6-1.3); POTASSIUM 3.8 mmol/L (3.5-5.1)
[2020-03-23 15:54] LABS: CALCIUM 5.9 mg/dL (8.5-10.1)
--- NOTE | 2020-03-23 18:26 | NUR ---
FECAL MGMT SYSTEM INSERTED THIS AM D/T LIQUID STOOLS. SAMPLE FOR C-DIFF SENT. VENT SUPP CONTD, PEEP DOWN TO 10, FIO2 AT 50%. VSS. TOLERATING TUBE FEEDS AT GOAL RATE, 60 MLS/HR. SEDATION CONTD WITH VERSED AND FENTANYL. ELECTROLYTE REPLACEMENT DONE PER PROTOCOL. GOOD UOP, 1350 MLS. LIQUID STOOL 700 MLS.
[2020-03-24] VITALS (36 sets, daily range): BP systolic 135–168; BP diastolic 49–61
[2020-03-24 05:35] LABS: ABSOLUTE LYMPHOCYTES 0.3 thou/uL (0.8-5.3); ABSOLUTE MONOCYTES 0.2 thou/uL (0.0-1.2); HEMATOCRIT 23.9 % (37.0-47.0); HEMOGLOBIN 8.2 gm/dL (12.0-15.0); LYMPHOCYTES 4.3 %; MCH 30.7 pg (26.0-34.0); MCHC 34.3 g/dL (28.0-37.0); MCV 89.6 fL (80.0-100.0); MONOCYTES 3.2 %; MPV 7.9 fl. (7.2-11.1); NUCLEATED RBCS 0 /100WBC; PLATELET COUNT* 254 thou/uL (150-400); POLYS 92.5 %; RBC 2.67 mil/uL (4.20-5.00); RDW-CV 18.3 % (10.5-14.5); WBC 7.5 thou/uL (4.0-11.0)
[2020-03-24 06:06] LABS: ALBUMIN 2.2 g/dL (3.4-5.0); CALCIUM 6.4 mg/dL (8.5-10.1); CREATININE 1.1 mg/dL (0.6-1.3); MAGNESIUM 1.7 mg/dL (1.8-2.4); POTASSIUM 3.3 mmol/L (3.5-5.1); TOTAL BILIRUBIN 0.3 mg/dL (<0.1-1.0); TOTAL PROTEIN 6.2 g/dL (6.4-8.2)
--- NOTE | 2020-03-24 06:22 | NUR ---
ASSUMED CARE AT 1900H, ON VENT PS MODE AT 50%. SEEN ON BED SEDATED WITH VERSED AND FENTANYL AND WITHDRAWS TO PAIN AND EYE OPENING TO PAIN. WHEN TURNED, PT DESAT. NO FEVER NOTED. CONTINUE MONITORING AND TOWARDS GOALS.
[2020-03-24 08:09] LABS: BE -0.2 mmol/L (-2 to +3); PCO2 44.5 mmHg (35.0-45.0); PO2 105.6 mmHg (75.0-100.0); pH 7.371 (7.340-7.450)
[2020-03-24 16:28] LABS: CALCIUM 6.6 mg/dL (8.5-10.1); CREATININE 1.2 mg/dL (0.6-1.3); MAGNESIUM 1.9 mg/dL (1.8-2.4); POTASSIUM 3.4 mmol/L (3.5-5.1)
--- NOTE | 2020-03-24 19:34 | NUR ---
VENT SUPPORT CONTD, TITRATED FIO2 TOLERATED. FIO2 TO BE TITRATED DOWN TO 40% BEFORE TITRATING PEEP PER DR BARBA. SEDATION CONTD WITH FENTANYL AND VERSED. TOLERATING TUBE FEEDS. LOOSE STOOL CONTD. TREATMENT FOR C-DIFF STARTED TODAY. ELECTROLYTES REPLACED PER PROTOCOL. Q2 TURNS AND ORAL CARE GIVEN.
[2020-03-25] VITALS (35 sets, daily range): BP systolic 139–162; BP diastolic 47–57
--- NOTE | 2020-03-25 04:33 | NUR ---
ASSUMED CARE AT 1900H, ON VENT PS 18 AT 60%, FIO2 TITRATED.SEN ON BED SADETATED WITH FENTANYL AND VERSED AT MAX DOSE. STILL DESATING EVERY POSITION CHANGED. RESTRAIN REMOVED, PT WITHDRAWS TO PAIN BUT NOT REACHING THE TUBE. NO FEVER NOTED. CONTINUE MONITORING AND TOWARDS GOALS.
[2020-03-25 06:24] LABS: NUCLEATED RBCS 0 /100WBC; PLATELET COUNT* 243 thou/uL (150-400)
[2020-03-25 06:25] LABS: HEMATOCRIT 24.4 % (37.0-47.0); HEMOGLOBIN 8.1 gm/dL (12.0-15.0); MCH 29.6 pg (26.0-34.0); MCHC 33.4 g/dL (28.0-37.0); MCV 88.6 fL (80.0-100.0); MPV 7.9 fl. (7.2-11.1); RBC 2.75 mil/uL (4.20-5.00); RDW-CV 18.6 % (10.5-14.5); WBC 7.2 thou/uL (4.0-11.0)
[2020-03-25 06:40] LABS: CALCIUM 6.3 mg/dL (8.5-10.1); CREATININE 1.1 mg/dL (0.6-1.3); POTASSIUM 3.4 mmol/L (3.5-5.1); TOTAL BILIRUBIN 0.3 mg/dL (<0.1-1.0); TOTAL PROTEIN 6.1 g/dL (6.4-8.2)
[2020-03-25 08:11] LABS: BE -0.1 mmol/L (-2 to +3); PCO2 47.1 mmHg (35.0-45.0); PO2 104.4 mmHg (75.0-100.0); pH 7.358 (7.340-7.450)
[2020-03-25 08:52] LABS: ABSOLUTE LYMPHOCYTES 0.5 thou/uL (0.8-5.3); ABSOLUTE NEUTROPHILS 6.7 thou/uL (1.6-8.1); METAMYELOCYTES 3 %
[2020-03-25 08:53] LABS: ANISOCYTOSIS 1+; HYPOCHROMASIA 2+; MICROCYTES 1+; PLATELET ESTIMATE ADEQUATE
--- NOTE | 2020-03-25 15:37 | NUR ---
ICU rounds: Covid positive. Pulm, neuro, hem/onc following. Tube feeds. On vent, fio2 to 50%. Remdisivir. Cont ivabx
--- NOTE | 2020-03-25 17:31 | NUR ---
PT REMAINS INTUBATED PER ORDERED SETTINGS.ON VERSED AND FENTANYL GTT.PT TOLERATING TUBE FEEDS.PT SLIGHTLY TURNED THROUGHOUT THE SHIFT DUE TO NOT TOLERATING TURNS.ISOLATION MAINTAINED FOR CDIFF AND COVID POSITIVE.FECAL MANAGEMENT SYSTEM SECURE AND PATENT.FAMILY UPDATED ON PT CONDITION.WILL CONTINUE TO MONITOR FOR DURATION OF SHIFT.
[2020-03-26] VITALS (38 sets, daily range): BP systolic 139–167; BP diastolic 47–68
[2020-03-26 04:30] LABS: ABSOLUTE LYMPHOCYTES 0.2 thou/uL (0.8-5.3); ABSOLUTE MONOCYTES 0.4 thou/uL (0.0-1.2); ABSOLUTE NEUTROPHILS 9.7 thou/uL (1.6-8.1); BASOPHILS 0.2 %; HEMATOCRIT 24.9 % (37.0-47.0); HEMOGLOBIN 8.3 gm/dL (12.0-15.0); LYMPHOCYTES 1.5 %; MCH 29.7 pg (26.0-34.0); MCHC 33.5 g/dL (28.0-37.0); MCV 88.7 fL (80.0-100.0); MONOCYTES 4.1 %; MPV 7.9 fl. (7.2-11.1); NUCLEATED RBCS 0 /100WBC; PLATELET COUNT* 235 thou/uL (150-400); POLYS 94.2 %; RDW-CV 18.5 % (10.5-14.5); WBC 10.3 thou/uL (4.0-11.0)
--- NOTE | 2020-03-26 04:37 | NUR ---
PT. FIO2 INCREASED TO 80% THIS SHIFT. REMAINS ON COVID PRECAUTIONS. REMAINS ON FENTANYL AND VERSED GTT'S. FECAL TUBE REMAINS IN PLACE, DRAINING MODERATE AMOUNT OF LIQUID STOOL. CHEST XRAY DONE THIS A.M. NO RESTRAINTS ON AT THIS TIME. WILL CONTINUE TO MONITOR.
[2020-03-26 04:43] LABS: PHOSPHORUS* 3.5 mg/dL (2.5-4.9)
[2020-03-26 04:44] LABS: CREATININE 1.1 mg/dL (0.6-1.3); MAGNESIUM 1.4 mg/dL (1.8-2.4); TOTAL BILIRUBIN 0.3 mg/dL (<0.1-1.0); TOTAL PROTEIN 6.1 g/dL (6.4-8.2)
[2020-03-26 04:46] LABS: CALCIUM 5.9 mg/dL (8.5-10.1)
[2020-03-26 07:52] LABS: BE 2.6 mmol/L (-2 to +3); PCO2 41.4 mmHg (35.0-45.0); pH 7.433 (7.340-7.450)
--- NOTE | 2020-03-26 13:41 | NUR ---
ICU rounds: Intubated. Covid and cdiff positive. No weaning trials planned. Replete electrolytes. Tube feeds. Pulm following.
--- NOTE | 2020-03-26 17:01 | NUR ---
PT REMAINS INTUBATED PER ORDERED SETTINGS.SEDATED ON VERSED AND FENTANYL GTT.PT NOT TOLERATING Q2 HOUR TURNS.POTASSIUM AND MAGNESIUM REPLACED.TUBE FEEDS TOLERATED WITH 300 ML FREE WATER FLUSHES Q4H.ISOLATION MAINTAINED FOR COVID AND CDIFF.FAMILY UPDATED BY PHONE ON PT CONDITION.WILL CONTINUE TO MONITOR FOR DURATION OF SHIFT.
--- NOTE | 2020-03-26 19:55 | NUR ---
INITAL ASSESMENT COMPLETED AT 1930. PT INTUBATED AND SEDATED ON VENTILATOR. PT UNRESTRAINED AT THIS TIME. ORAL CARE AND SUCTIONING DONE. CRDIZEM DRIP CONTINUED AT 5 MG/HR, HEART RATE 70. O2 SAT 97% ON FIO2 OF 80%.
[2020-03-26 22:20] LABS: BE 1.1 mmol/L (-2 to +3); PCO2 43.8 mmHg (35.0-45.0); PO2 64.9 mmHg (75.0-100.0); pH 7.394 (7.340-7.450)
[2020-03-26 22:41] LABS: MAGNESIUM 1.5 mg/dL (1.8-2.4)
[2020-03-26 22:43] LABS: POTASSIUM 4.1 mmol/L (3.5-5.1)
[2020-03-26 22:45] LABS: URINE BILIRUBIN NEGATIVE (Negative); URINE BLOOD 1+ (Negative); URINE COLOR YELLOW; URINE GLUCOSE-RANDOM NEGATIVE (Negative); URINE KETONES NEGATIVE (Negative); URINE LEUKOCYTES 1+ (Negative); URINE NITRITE NEGATIVE (Negative); URINE PROTEIN TRACE (Negative); URINE UROBILINOGEN 0.2 E.U./dl (0.2-1.0)
[2020-03-26 22:46] LABS: URINE CLARITY SL HAZY
[2020-03-26 22:53] LABS: URINE WBC 6-15 Few /HPF (0-5); YEAST Present (None Seen)
[2020-03-26 22:54] LABS: CASTS None Seen /LPF (None Seen); CRYSTALS None Seen /LPF (None Seen); URINE RBC 0-2 Rare /HPF (0-2)
[2020-03-26 22:55] LABS: BACTERIA None Seen /HPF (None Seen); MUCUS None Seen strn/LPF (None Seen); SQUAMOUS 0-3 Few /LPF (0-3)
[2020-03-27] VITALS (28 sets, daily range): BP systolic 131–169; BP diastolic 53–67
[2020-03-27 05:22] LABS: HEMATOCRIT 23.5 % (37.0-47.0); HEMOGLOBIN 7.8 gm/dL (12.0-15.0); MCH 29.2 pg (26.0-34.0); MCV 88.4 fL (80.0-100.0); MPV 7.9 fl. (7.2-11.1); NUCLEATED RBCS 4 /100WBC; PLATELET COUNT* 184 thou/uL (150-400); RBC 2.66 mil/uL (4.20-5.00); RDW-CV 18.9 % (10.5-14.5); WBC 10.6 thou/uL (4.0-11.0)
[2020-03-27 05:41] LABS: ALBUMIN 1.9 g/dL (3.4-5.0); MAGNESIUM 1.8 mg/dL (1.8-2.4); POTASSIUM 3.4 mmol/L (3.5-5.1); TOTAL BILIRUBIN 0.3 mg/dL (<0.1-1.0); TOTAL PROTEIN 5.7 g/dL (6.4-8.2)
[2020-03-27 05:56] LABS: CALCIUM 5.8 mg/dL (8.5-10.1)
[2020-03-27 06:05] LABS: ABSOLUTE LYMPHOCYTES 0.6 thou/uL (0.8-5.3); ANISOCYTOSIS 1+; HYPOCHROMASIA 1+; MYELOCYTES 1 %; PLATELET ESTIMATE ADEQUATE; POIKILOCYTOSIS 1+
--- NOTE | 2020-03-27 06:16 | NUR ---
PT DESAT TO LOW 80'S EARLY IN SHIFT. DR BARBA NOTIFIED. ABG AND STAT PORTABLE CHEST XRAY OBTAINED. PT GIVEN LOADING DOSE OF REMDESIVIR AND 80 MG SOLUMEDROL IV. FIO2 INCREASED TO 100%. PEEP INCREASED TO 12. PT MAINTAINED O2 SAT > 94% FOR REMAINDER OF SHIFT.
[2020-03-27 08:19] LABS: BE -1.5 mmol/L (-2 to +3); PCO2 37.1 mmHg (35.0-45.0); pH 7.409 (7.340-7.450)
[2020-03-27 08:23] LABS: PO2 139.4 mmHg (75.0-100.0)
--- NOTE | 2020-03-27 15:28 | NUR ---
ICU rounds: Covid and cdiff positive. On vent. Picc line. Dee. Fecal tube. Pulm following.
--- NOTE | 2020-03-27 18:54 | NUR ---
assessment as charted pt did not tolerate titrating down on fio2 remains at 75% potassium mg and ca replaced pt sedated and resting
[2020-03-27 21:11] LABS: CALCIUM 6.3 mg/dL (8.5-10.1); CREATININE 0.9 mg/dL (0.6-1.3); MAGNESIUM 1.8 mg/dL (1.8-2.4); PHOSPHORUS* 4.2 mg/dL (2.5-4.9); POTASSIUM 4.4 mmol/L (3.5-5.1)
[2020-03-28] VITALS (23 sets, daily range): BP systolic 120–160; BP diastolic 44–64
[2020-03-28 04:38] LABS: ABSOLUTE LYMPHOCYTES 0.2 thou/uL (0.8-5.3); ABSOLUTE MONOCYTES 0.3 thou/uL (0.0-1.2); ABSOLUTE NEUTROPHILS 11.3 thou/uL (1.6-8.1); BASOPHILS 0.3 %; HEMATOCRIT 23.1 % (37.0-47.0); HEMOGLOBIN 7.8 gm/dL (12.0-15.0); LYMPHOCYTES 1.4 %; MCH 30.8 pg (26.0-34.0); MCHC 33.8 g/dL (28.0-37.0); MCV 90.9 fL (80.0-100.0); MONOCYTES 2.5 %; MPV 7.8 fl. (7.2-11.1); NUCLEATED RBCS 1 /100WBC; PLATELET COUNT* 164 thou/uL (150-400); POLYS 95.8 %; RBC 2.55 mil/uL (4.20-5.00); RDW-CV 18.3 % (10.5-14.5); WBC 11.8 thou/uL (4.0-11.0)
[2020-03-28 06:02] LABS: ALBUMIN 2.4 g/dL (3.4-5.0); MAGNESIUM 1.9 mg/dL (1.8-2.4); PHOSPHORUS* 4.9 mg/dL (2.5-4.9); POTASSIUM 3.5 mmol/L (3.5-5.1); TOTAL BILIRUBIN 0.5 mg/dL (<0.1-1.0); TOTAL PROTEIN 6.5 g/dL (6.4-8.2)
[2020-03-28 06:06] LABS: CALCIUM 5.8 mg/dL (8.5-10.1)
--- NOTE | 2020-03-28 06:44 | NUR ---
PT. NOT PROGRESSING TOWARDS GOALS. FIO2 REMAINS AT 75%. PT. DESATS SPORADICALLY AND FREQUENTLY. COMPLETE BED BATH GIVEN. PT'S SPOUSE AND SON CALLED, PHONE HELD UP TO PT'S EAR SO FAMILY MEMBERS COULD SPEAK TO HER. LEFT RADIAL ART LINE REMAINS IN PLACE. CHEST XRAY DONE THIS A.M. SEDATION REMAINS UNCHANGED WITH VERSED AND FENTANYL GTT'S. WILL CONTINUE TO MONITOR.
[2020-03-28 08:32] LABS: BE 4.6 mmol/L (-2 to +3); PCO2 46.8 mmHg (35.0-45.0); PO2 93.8 mmHg (75.0-100.0)
--- NOTE | 2020-03-28 15:25 | NUR ---
ICU rounds: Covid and cdiff positive. Rapid negative, plan repeat PCR. Intubated and sedated. Fio2 down to 70.
[2020-03-28 15:40] LABS: CREATININE 0.9 mg/dL (0.6-1.3); MAGNESIUM 1.6 mg/dL (1.8-2.4)
[2020-03-28 15:41] LABS: CALCIUM 5.5 mg/dL (8.5-10.1); POTASSIUM 2.8 mmol/L (3.5-5.1)
[2020-03-28 21:04] LABS: CALCIUM 6.5 mg/dL (8.5-10.1); MAGNESIUM 1.9 mg/dL (1.8-2.4)
[2020-03-28 21:05] LABS: POTASSIUM 4.8 mmol/L (3.5-5.1)
[2020-03-29] VITALS (22 sets, daily range): BP systolic 121–167; BP diastolic 51–65
[2020-03-29 03:32] LABS: ABSOLUTE LYMPHOCYTES 0.2 thou/uL (0.8-5.3); ABSOLUTE MONOCYTES 0.2 thou/uL (0.0-1.2); ABSOLUTE NEUTROPHILS 11.2 thou/uL (1.6-8.1); BASOPHILS 0.1 %; HEMATOCRIT 21.9 % (37.0-47.0); HEMOGLOBIN 7.3 gm/dL (12.0-15.0); LYMPHOCYTES 1.3 %; MCH 30.3 pg (26.0-34.0); MCHC 33.2 g/dL (28.0-37.0); MCV 91.2 fL (80.0-100.0); MONOCYTES 1.9 %; NUCLEATED RBCS 0 /100WBC; PLATELET COUNT* 141 thou/uL (150-400); POLYS 96.7 %; RDW-CV 18.9 % (10.5-14.5); WBC 11.6 thou/uL (4.0-11.0)
[2020-03-29 03:49] LABS: ALBUMIN 2.8 g/dL (3.4-5.0); CALCIUM 6.4 mg/dL (8.5-10.1); CREATININE 1.1 mg/dL (0.6-1.3); MAGNESIUM 2.7 mg/dL (1.8-2.4); PHOSPHORUS* 4.6 mg/dL (2.5-4.9); TOTAL BILIRUBIN 0.4 mg/dL (<0.1-1.0); TOTAL PROTEIN 6.5 g/dL (6.4-8.2)
[2020-03-29 03:52] LABS: POTASSIUM 3.2 mmol/L (3.5-5.1)
--- NOTE | 2020-03-29 07:33 | NUR ---
RECEIVED REPORT AND ASSUMED CARE AT 1900. VSS. ICU MONITORING IN PLACE. PT SHAKES HEAD NO WHEN WHWN ASED IF IN PAIN. OPENS EYES TO VERBAL COMMAND. DOES NOT SQUEEZE HANDS WHEN ASKED, BUT PT DOES HAVE PURPOSEFUL MOVEMENT WITH ARMS. SEDATION TITARED PER ORDERS. LAB RESULTS RECEIVED AND COMMUNICATED WITH PHYSICIAN. ORDERS RECEVIVED. SEDATION INCREASED, VERSED IVP UTILIZED. PT NO TOLERATING TURNS/ POSITION CHANGES WELL. USING PILLOW INSTEAD OF WEDGE. WHEN WEDGE USED PT WILL DESAT TO LOW 80'S . WHEN REMOVED 02 SAT IMPROVES. PT O2 SAT VERY LABILE. WILL GO FROM [id number]. THIS WILL HAPPEN WITH NO CHANGES BEING MADE OR CARES BEING GIVEN. ALSO WHEN CARE IS BEING GIVEN OR PATIENT IS TOUCHED SHE WILL DESAT INTO THE LOW 80'S AND TAKE ANYWHERE FROM 10-45 MIN TO RECOVER TO SATS IN LOW 90'S . PRITI COMPLETED AND ALL NEEDS MET
[2020-03-29 08:00] LABS: BE 1.9 mmol/L (-2 to +3); PCO2 43.5 mmHg (35.0-45.0); PO2 67.5 mmHg (75.0-100.0); pH 7.408 (7.340-7.450)
[2020-03-29 15:11] LABS: ABSOLUTE LYMPHOCYTES 0.2 thou/uL (0.8-5.3); ABSOLUTE MONOCYTES 0.4 thou/uL (0.0-1.2); ABSOLUTE NEUTROPHILS 13.8 thou/uL (1.6-8.1); BASOPHILS 0.3 %; HEMATOCRIT 22.9 % (37.0-47.0); HEMOGLOBIN 7.4 gm/dL (12.0-15.0); LYMPHOCYTES 1.1 %; MCH 29.1 pg (26.0-34.0); MCHC 32.3 g/dL (28.0-37.0); MCV 89.9 fL (80.0-100.0); NUCLEATED RBCS 0 /100WBC; PLATELET COUNT* 130 thou/uL (150-400); POLYS 95.6 %; RBC 2.55 mil/uL (4.20-5.00); RDW-CV 18.9 % (10.5-14.5); WBC 14.4 thou/uL (4.0-11.0)
[2020-03-29 15:51] LABS: BE -4.5 mmol/L (-2 to +3); PO2 108.9 mmHg (75.0-100.0)
[2020-03-29 15:53] LABS: PCO2 75.4 mmHg (35.0-45.0); pH 7.139 (7.340-7.450)
[2020-03-29 17:12] LABS: ALBUMIN 2.5 g/dL (3.4-5.0); CALCIUM 6.4 mg/dL (8.5-10.1); CREATININE 0.8 mg/dL (0.6-1.3); MAGNESIUM 1.9 mg/dL (1.8-2.4); PHOSPHORUS* 5.5 mg/dL (2.5-4.9); POTASSIUM 4.6 mmol/L (3.5-5.1); TOTAL BILIRUBIN 0.3 mg/dL (<0.1-1.0); TOTAL PROTEIN 6.4 g/dL (6.4-8.2)
--- NOTE | 2020-03-29 18:52 | NUR ---
assumed care of pt at 0700 pt was having desat episodes and taking long to recover per dr burris started on nimbex at 37.5 ml non titrate pt is responding well to paralytic agent resting sating in high 90's critical abg results called to dr mitchell vent change pc increased to 20 rr increased to 20 tolerating well potassium replaced x4 bags result came back at 4.8 no additional bags given at this point in time tubefeed decreased to 10ml due to diarrhea gi consulted for c-diff/colitis family updated
[2020-03-29 20:11] LABS: BE -0.6 mmol/L (-2 to +3); pH 7.319 (7.340-7.450)
[2020-03-29 20:15] LABS: PCO2 50.7 mmHg (35.0-45.0); PO2 127.2 mmHg (75.0-100.0)
[2020-03-30] VITALS (38 sets, daily range): BP systolic 113–146; BP diastolic 42–59
[2020-03-30 04:51] LABS: ALBUMIN 2.3 g/dL (3.4-5.0); CALCIUM 6.3 mg/dL (8.5-10.1); CREATININE 0.9 mg/dL (0.6-1.3); MAGNESIUM 1.7 mg/dL (1.8-2.4); TOTAL BILIRUBIN 0.4 mg/dL (<0.1-1.0); TOTAL PROTEIN 5.7 g/dL (6.4-8.2)
[2020-03-30 04:56] LABS: POTASSIUM 3.4 mmol/L (3.5-5.1)
[2020-03-30 04:57] LABS: HEMATOCRIT 21.7 % (37.0-47.0); HEMOGLOBIN 7.2 gm/dL (12.0-15.0); MCH 30.8 pg (26.0-34.0); MCHC 33.1 g/dL (28.0-37.0); MCV 92.9 fL (80.0-100.0); MPV 8.5 fl. (7.2-11.1); NUCLEATED RBCS 0 /100WBC; PLATELET COUNT* 126 thou/uL (150-400); RBC 2.33 mil/uL (4.20-5.00); RDW-CV 18.8 % (10.5-14.5); WBC 11.8 thou/uL (4.0-11.0)
[2020-03-30 07:02] LABS: ABSOLUTE LYMPHOCYTES 0.7 thou/uL (0.8-5.3); ABSOLUTE MONOCYTES 0.6 thou/uL (0.0-1.2); ABSOLUTE NEUTROPHILS 10.5 thou/uL (1.6-8.1); ANISOCYTOSIS 1+; ATYPICAL LYMPHS 2 %; ATYPICAL MONONUCLEARS 1 %; METAMYELOCYTES 6 %; PLATELET ESTIMATE ADEQUATE
--- NOTE | 2020-03-30 07:54 | NUR ---
RECEIVED REPORT AND ASSUMED CARE AT 1900. VSS. ICU MONITORING IN PLACE. ASSESSMENT COMPLETE CHARTED. PT ON HEATED HIGH FLOW. 90L 100%. DESAT INTO 70'S AND NOT RECOVERING. PT PLACED ON BIPAP WITH IMPROVEMENT. PT TALKED WITH NURSE ABOUT POSSIBLE NEED FOR INTUBATION. AND STATES THAT "I DON'T WANT THAT" STATES SHE SEES HOS[facility] LOOK[facility] AT [facility] STATES SHE DOES NOT WANT TO HAVE A TRACH/ PEG TUBE. PASSED ON IN REPORT, PHYSICIAN NOTIFIED. POSITION CHANGED EVERY TWO HOURS, HEELS OFF LOADED. WHEN PT REMOVES BIPAP TO HAVE A BITE OF ICE, OR ORAL CARE. PT DESATS INTO 60-70'S WITHIN A MIN. WHEN BIPAP REPLACED, WILL RECOVER WITHIN A MIN TO TWO. ROUNDING COMPLETED AND ALL NEEDS MET.
--- NOTE | 2020-03-30 08:04 | NUR ---
RECEIVED REPORT AND ASSUMED CARE AT 1900. VSS. ICU MONITORING IN PLACE. ASSESSMENT COMPLETED CHARTED. ABG RESULTS RECEIVED AND PHYSICIAN NOTIFIED. DISCUSSED SEDATION WITH PHYSICIAN. ORDERS RECEIVED. OKAY TO HOLD NIMBEX, VERIFY SEDATION IS ADEQUATE AND THEN RESTART NIMBEX. PER ORDERS, OKAY TO ADD PROPOFOL TO SEDATION. NIMBEX HELD AT 2347, ONE HOUR POST MEDICAITON HOLD. PT OPENS EYES TO NAME BEING CALLED, MOVES HEAD AWAY FROM WASH CLOTH CLEANING HER FACE. PROPOFOL ADDED AND TITIRATED UNTIL A RASS OF -2. NIMBEX RESTARTED AT 0200. POSITION CHANGED EVERY TWO HOURS, HEELS OFF LOADED. HEEL DROP BOOT APPLIED AND CHANGED BETWEEN LEGS Q2H. BED LOCKED IN LOWEST POSITION, BED ALARM ON. ROUDNING COMPLETED AND ALL NEEDS MET
[2020-03-30 08:14] LABS: BE 2.3 mmol/L (-2 to +3); PCO2 47.9 mmHg (35.0-45.0); PO2 101.6 mmHg (75.0-100.0); pH 7.381 (7.340-7.450)
[2020-03-30 16:51] LABS: NUCLEATED RBCS 0 /100WBC
[2020-03-30 16:52] LABS: HEMATOCRIT 21.8 % (37.0-47.0); HEMOGLOBIN 7.1 gm/dL (12.0-15.0); MCHC 32.4 g/dL (28.0-37.0); MCV 89.6 fL (80.0-100.0); MPV 8.3 fl. (7.2-11.1); PLATELET COUNT* 115 thou/uL (150-400); RBC 2.43 mil/uL (4.20-5.00); RDW-CV 19.5 % (10.5-14.5)
--- NOTE | 2020-03-30 17:08 | NUR ---
PT REMAINS INTUBATED PER ORDERED SETTINGS.SEDATED ON PROPOFOL,FENTANYL, AND VERSED GTT.PT REMAINS ON NIMBEX GTT.POTASSIUM/MAGNESIUM REPLACED.TUBE FEEDS TOLERATED WITH NO RESIDUALS.ISOLATION MAINTAINED FOR COVID AND CDIFF.FAMILY UPDATED BY PHONE.WILL CONTINUE TO MONITOR FOR DURATION OF SHIFT.
[2020-03-30 17:20] LABS: ABSOLUTE LYMPHOCYTES 0.6 thou/uL (0.8-5.3); ABSOLUTE MONOCYTES 0.4 thou/uL (0.0-1.2); ANISOCYTOSIS 1+; METAMYELOCYTES 1 %; PLATELET ESTIMATE DECREASED
[2020-03-30 17:21] LABS: OVALOCYTES Occasional
[2020-03-31] VITALS (34 sets, daily range): BP systolic 114–167; BP diastolic 40–69
[2020-03-31 07:51] LABS: HEMATOCRIT 22.5 % (37.0-47.0); HEMOGLOBIN 7.3 gm/dL (12.0-15.0); MCH 30.3 pg (26.0-34.0); MCHC 32.3 g/dL (28.0-37.0); MCV 93.7 fL (80.0-100.0); MPV 8.7 fl. (7.2-11.1); RBC 2.4 mil/uL (4.20-5.00); RDW-CV 19.9 % (10.5-14.5); WBC 11.9 thou/uL (4.0-11.0)
--- NOTE | 2020-03-31 07:51 | NUR ---
RECEIVED REPORT AND ASSUMED CARE AT 1900. VSS. ICU MONITORING IN PLACE. ASSESSMENT COMPLETED CHARTED. BED LOCKED IN LOWEST POSITION, CALL LIGHT WITHIN REACH, BED ALARM ON . SPOKE WITH PHYSICIAN, OKAY TO STOP NIMBEX. NIMBEX STOPPED AT 2307. PT REMAINS ON PROPOFOL/ VERSED/ FENTANYL GTT. PT HAS HAD SLOW DROP IN HGB. IF BELOW 7, INFUSE ONE UNIT PRBC. LABS NOT RESULTED BY END OF SHIFT. REPORT GIVEN. POSITION CHANGED EVERY TWO HOURS, HEELS OFF LOADED. ROUNDING COMPLETED AND ALL NEEDS MET.
[2020-03-31 07:54] LABS: CALCIUM 6.4 mg/dL (8.5-10.1); CREATININE 0.8 mg/dL (0.6-1.3); MAGNESIUM 1.6 mg/dL (1.8-2.4); POTASSIUM 3.9 mmol/L (3.5-5.1)
[2020-04-01] VITALS (50 sets, daily range): BP systolic 117–152; BP diastolic 46–62
[2020-04-01 10:45] LABS: BE -2.4 mmol/L (-2 to +3); PCO2 46.8 mmHg (35.0-45.0); PO2 65.4 mmHg (75.0-100.0); pH 7.322 (7.340-7.450)
[2020-04-01 12:45] LABS: ABSOLUTE BASOPHILS 0.1 thou/uL (0.0-0.2); BASOPHILS 0.5 %; HEMOGLOBIN 7.4 gm/dL (12.0-15.0)
[2020-04-01 12:47] LABS: ABSOLUTE LYMPHOCYTES 0.3 thou/uL (0.8-5.3); ABSOLUTE MONOCYTES 0.4 thou/uL (0.0-1.2); ABSOLUTE NEUTROPHILS 16.1 thou/uL (1.6-8.1); HEMATOCRIT 22.1 % (37.0-47.0); LYMPHOCYTES 1.6 %; MCH 30.6 pg (26.0-34.0); MCHC 33.5 g/dL (28.0-37.0); MCV 91.4 fL (80.0-100.0); MONOCYTES 2.5 %; MPV 8.5 fl. (7.2-11.1); NUCLEATED RBCS 0 /100WBC; PLATELET COUNT* 105 thou/uL (150-400); POLYS 95.4 %; RBC 2.42 mil/uL (4.20-5.00); RDW-CV 19.6 % (10.5-14.5); WBC 16.8 thou/uL (4.0-11.0)
[2020-04-01 12:52] LABS: CALCIUM 6.1 mg/dL (8.5-10.1); CREATININE 0.8 mg/dL (0.6-1.3); POTASSIUM 4.1 mmol/L (3.5-5.1)
[2020-04-01 12:56] LABS: MAGNESIUM 1.5 mg/dL (1.8-2.4); PHOSPHORUS* 4.2 mg/dL (2.5-4.9); TOTAL BILIRUBIN 0.5 mg/dL (<0.1-1.0); TOTAL PROTEIN 5.7 g/dL (6.4-8.2)
--- NOTE | 2020-04-01 14:58 | NUR ---
ICU rounds: Covid and cdiff positive. RF. Wednesday will be Pt's day on vent. ?trach, peep needs to less than 10 and fio2 needs to be less than 50, peep currently 12 and fio2 is 100. PCR is negative. Tube feeds. q2 turns.
[2020-04-01 15:23] LABS: BE -3.9 mmol/L (-2 to +3); PCO2 44.7 mmHg (35.0-45.0); pH 7.314 (7.340-7.450)
[2020-04-01 15:26] LABS: PO2 148.4 mmHg (75.0-100.0)
--- NOTE | 2020-04-01 19:37 | NUR ---
I ASSUMED CARE OF THE PATIENT AT 0700. SHE IS UNRESPONSIVE ON A VENTILATOR. BED IS IN THE LOW LOCKED POSITION AND CALL LIGHT IS IN REACH. HOURLY ROUNDING IS COMPLETED AND PATIENT NEEDS ARE MET. PAIN IS DENIED. SEDATION IS CONTINUOUS WELL VITAL HP FEEDINGS AT 60/HR (WHICH IS GOAL) WITH FREE WATER FLUSHES. PROPOFOL WAS TITRATED DOWN AND TURNED OFF. ISOLATION WAS MAINTAINED. BLOOD SUGAR WAS MONITORED AND INSULIN WAS UTILIZED. I/O WERE CHARTED. PATIENT WAS REPOSITIONED EVERY 2 HOURS. WILL CONTINUE TO MONITOR.
[2020-04-01 20:01] LABS: CREATININE 0.9 mg/dL (0.6-1.3); POTASSIUM 3.7 mmol/L (3.5-5.1)
[2020-04-02] VITALS (54 sets, daily range): BP systolic 92–144; BP diastolic 45–77
[2020-04-02 06:07] LABS: NUCLEATED RBCS 0 /100WBC
[2020-04-02 06:08] LABS: HEMATOCRIT 20.1 % (37.0-47.0); MCH 29.9 pg (26.0-34.0); MCHC 33.3 g/dL (28.0-37.0); MPV 8.5 fl. (7.2-11.1); PLATELET COUNT* 76 thou/uL (150-400); RBC 2.23 mil/uL (4.20-5.00); RDW-CV 19.6 % (10.5-14.5); WBC 13.4 thou/uL (4.0-11.0)
[2020-04-02 06:13] LABS: HEMOGLOBIN 6.7 gm/dL (12.0-15.0)
[2020-04-02 06:21] LABS: ALBUMIN 2.6 g/dL (3.4-5.0); CALCIUM 6.6 mg/dL (8.5-10.1); CREATININE 0.9 mg/dL (0.6-1.3); MAGNESIUM 1.8 mg/dL (1.8-2.4); TOTAL BILIRUBIN 0.5 mg/dL (<0.1-1.0); TOTAL PROTEIN 6.1 g/dL (6.4-8.2)
[2020-04-02 06:32] LABS: PREALBUMIN 31.2 mg/dL (18.0-35.7)
[2020-04-02 06:56] LABS: ABSOLUTE LYMPHOCYTES 0.8 thou/uL (0.8-5.3); ABSOLUTE MONOCYTES 0.4 thou/uL (0.0-1.2); ABSOLUTE NEUTROPHILS 12.2 thou/uL (1.6-8.1); PLATELET ESTIMATE DECREASED
[2020-04-02 06:57] LABS: ANISOCYTOSIS 1+; HYPOCHROMASIA 1+; OVALOCYTES 1+; POIKILOCYTOSIS 1+; POLYCHROMASIA 1+
[2020-04-02 08:44] LABS: BE 1.2 mmol/L (-2 to +3); PCO2 41.2 mmHg (35.0-45.0); PO2 62.5 mmHg (75.0-100.0); pH 7.416 (7.340-7.450)
--- NOTE | 2020-04-02 14:37 | NUR ---
ICU rounds: Intubated and sedated. Covid and cdiff positive and on precautions. Hem/onc consult. Fio2 improving. Tube feeds.
[2020-04-02 17:52] LABS: ABSOLUTE LYMPHOCYTES 0.2 thou/uL (0.8-5.3); ABSOLUTE MONOCYTES 0.1 thou/uL (0.0-1.2); ABSOLUTE NEUTROPHILS 13.7 thou/uL (1.6-8.1); BASOPHILS 0.2 %; EOSINOPHILS 0.1 %; HEMATOCRIT 24.2 % (37.0-47.0); LYMPHOCYTES 1.3 %; MCH 29.2 pg (26.0-34.0); MCHC 32.9 g/dL (28.0-37.0); MCV 88.8 fL (80.0-100.0); MONOCYTES 0.6 %; MPV 8.8 fl. (7.2-11.1); NUCLEATED RBCS 0 /100WBC; PLATELET COUNT* 87 thou/uL (150-400); POLYS 97.8 %; RBC 2.72 mil/uL (4.20-5.00); RDW-CV 18.7 % (10.5-14.5)
[2020-04-02 18:01] LABS: CALCIUM 6.8 mg/dL (8.5-10.1); CREATININE 0.9 mg/dL (0.6-1.3); MAGNESIUM 1.9 mg/dL (1.8-2.4); POTASSIUM 4.3 mmol/L (3.5-5.1)
[2020-04-02 18:40] LABS: APTT 31.2 Seconds (25.0-31.3); INR 1.2; PROTIME 12.8 Seconds (9.20-11.50)
[2020-04-03] VITALS (51 sets, daily range): BP systolic 115–148; BP diastolic 50–65
[2020-04-03 04:36] LABS: ABSOLUTE LYMPHOCYTES 0.2 thou/uL (0.8-5.3); ABSOLUTE MONOCYTES 0.3 thou/uL (0.0-1.2); ABSOLUTE NEUTROPHILS 12.3 thou/uL (1.6-8.1); BASOPHILS 0.1 %; HEMATOCRIT 22.9 % (37.0-47.0); HEMOGLOBIN 7.7 gm/dL (12.0-15.0); LYMPHOCYTES 1.8 %; MCH 30.3 pg (26.0-34.0); MCHC 33.7 g/dL (28.0-37.0); MCV 89.9 fL (80.0-100.0); MONOCYTES 2.3 %; MPV 8.9 fl. (7.2-11.1); NUCLEATED RBCS 0 /100WBC; PLATELET COUNT* 78 thou/uL (150-400); POLYS 95.8 %; RBC 2.54 mil/uL (4.20-5.00); RDW-CV 18.6 % (10.5-14.5); WBC 12.8 thou/uL (4.0-11.0)
[2020-04-03 04:56] LABS: ALBUMIN 2.9 g/dL (3.4-5.0); CALCIUM 6.7 mg/dL (8.5-10.1); CREATININE 0.9 mg/dL (0.6-1.3); MAGNESIUM 2.1 mg/dL (1.8-2.4); TOTAL BILIRUBIN 0.5 mg/dL (<0.1-1.0); TOTAL PROTEIN 6.6 g/dL (6.4-8.2)
[2020-04-03 08:18] LABS: BE 2.4 mmol/L (-2 to +3); PCO2 40.8 mmHg (35.0-45.0); pH 7.435 (7.340-7.450)
[2020-04-03 08:22] LABS: PO2 56.4 mmHg (75.0-100.0)
--- NOTE | 2020-04-03 15:00 | NUR ---
ICU rounds: On vent x14 days. Fio2 at 80, peep at 12, can't trach or peg at this time. Covid and cdiff positive. TF. Fecal tube.
[2020-04-03 22:37] LABS: URINE BILIRUBIN NEGATIVE (Negative); URINE BLOOD 3+ (Negative); URINE COLOR YELLOW; URINE GLUCOSE-RANDOM NEGATIVE (Negative); URINE KETONES NEGATIVE (Negative); URINE LEUKOCYTES-REFLEX NEGATIVE (Negative); URINE NITRITE-REFLEX NEGATIVE (Negative); URINE PROTEIN 2+ (Negative); URINE UROBILINOGEN 0.2 E.U./dl (0.2-1.0)
[2020-04-03 22:39] LABS: URINE CLARITY HAZY
--- NOTE | 2020-04-03 22:43 | NUR ---
INITAL ASSESMENT COMPLETED AT 1999. PT INTUBATED AND SEDATED ON VENTILATOR. PT'S O2 SATS DROPPED TO 82% AND STAYED IN MID 80'S. FIO2 INCREASED TO 100%. REPORTED EVENTS TO DR BARBA AND RECIEVED ORDERS FOR IV LASIX, STAT CHEST XRAY, BLOOD AND URINE CULTURES OBTAINED AND SENT TO LAB. RT CHECKED CUFF AND ADDED AIR. FIO2 REDUCED TO 90% AT THIS TIME.
[2020-04-03 22:45] LABS: HYALINE CASTS 4-10 Moderate /LPF (None Seen); URINE RBC 3-10 Few /HPF (0-2)
[2020-04-03 22:46] LABS: BACTERIA-REFLEX 1-9 Few /HPF (None Seen); CRYSTALS None Seen /LPF (None Seen); MUCUS None Seen strn/LPF (None Seen); SQUAMOUS 0-3 Few /LPF (0-3); URINE WBC-REFLEX 0-5 Rare /HPF (0-5); YEAST-REFLEX Present (None Seen)
[2020-04-04] VITALS (48 sets, daily range): BP systolic 114–176; BP diastolic 46–62
[2020-04-04 03:57] LABS: ABSOLUTE BASOPHILS 0.2 thou/uL (0.0-0.2); ABSOLUTE LYMPHOCYTES 0.1 thou/uL (0.8-5.3); ABSOLUTE MONOCYTES 0.5 thou/uL (0.0-1.2); ABSOLUTE NEUTROPHILS 14.4 thou/uL (1.6-8.1); BASOPHILS 1.2 %; EOSINOPHILS 0.1 %; HEMATOCRIT 24.6 % (37.0-47.0); LYMPHOCYTES 0.7 %; MCH 28.6 pg (26.0-34.0); MCHC 32.5 g/dL (28.0-37.0); MPV 8.1 fl. (7.2-11.1); NUCLEATED RBCS 0 /100WBC; PLATELET COUNT* 89 thou/uL (150-400); RBC 2.79 mil/uL (4.20-5.00); RDW-CV 18.9 % (10.5-14.5); WBC 15.2 thou/uL (4.0-11.0)
[2020-04-04 04:11] LABS: ALBUMIN 2.6 g/dL (3.4-5.0); CALCIUM 6.9 mg/dL (8.5-10.1); CREATININE 1.1 mg/dL (0.6-1.3); MAGNESIUM 1.7 mg/dL (1.8-2.4); POTASSIUM 4.3 mmol/L (3.5-5.1); TOTAL BILIRUBIN 0.4 mg/dL (<0.1-1.0); TOTAL PROTEIN 6.8 g/dL (6.4-8.2)
[2020-04-04 09:54] LABS: BE 4.1 mmol/L (-2 to +3); PCO2 46.4 mmHg (35.0-45.0); pH 7.417 (7.340-7.450)
--- NOTE | 2020-04-04 16:09 | NUR ---
ICU rounds: Pt still ill, no changes.
--- NOTE | 2020-04-04 20:18 | NUR ---
INITAL ASSESMENT COMPLETED AT 1930. PT INTUBATED AND SEDATED ON VENTILATOR. O2 SATURATION AT THIS TIME 94% ON FIO2 OF 85%. FENTANYL AND VERSED DRIPS INFUSING FOR SEDATION. PT NOT RESPONDING TO VERBAL OR TACTILE STIMULATION AT THIS TIME. OG TUBE AT 60 CM INFUSING VITAL HP AT 60ML/HR, NO RESIDUAL AT THIS TIME. LEFT RADIAL ART LINE INTACT, PROPER WAVE FORM AND DICROTIC NOTCH NOTED. PT AFEBRILE AT THIS TIME, ORAL TEMP 98.9.
[2020-04-05] VITALS (31 sets, daily range): BP systolic 121–180; BP diastolic 44–63
[2020-04-05 06:04] LABS: ABSOLUTE BASOPHILS 0.1 thou/uL (0.0-0.2); ABSOLUTE LYMPHOCYTES 0.1 thou/uL (0.8-5.3); ABSOLUTE MONOCYTES 0.4 thou/uL (0.0-1.2); ABSOLUTE NEUTROPHILS 13.9 thou/uL (1.6-8.1); BASOPHILS 0.6 %; EOSINOPHILS 0.1 %; HEMATOCRIT 23.1 % (37.0-47.0); HEMOGLOBIN 7.6 gm/dL (12.0-15.0); LYMPHOCYTES 0.8 %; MCH 29.8 pg (26.0-34.0); MCHC 33.2 g/dL (28.0-37.0); MPV 8.8 fl. (7.2-11.1); NUCLEATED RBCS 0 /100WBC; PLATELET COUNT* 84 thou/uL (150-400); POLYS 95.5 %; RBC 2.56 mil/uL (4.20-5.00); RDW-CV 19.2 % (10.5-14.5); WBC 14.6 thou/uL (4.0-11.0)
[2020-04-05 06:17] LABS: PREALBUMIN 25.8 mg/dL (18.0-35.7)
[2020-04-05 06:31] LABS: ALBUMIN 2.5 g/dL (3.4-5.0); CALCIUM 6.4 mg/dL (8.5-10.1); CREATININE 1.2 mg/dL (0.6-1.3); MAGNESIUM 1.9 mg/dL (1.8-2.4); POTASSIUM 3.6 mmol/L (3.5-5.1); TOTAL BILIRUBIN 0.4 mg/dL (<0.1-1.0); TOTAL PROTEIN 6.7 g/dL (6.4-8.2)
[2020-04-05 09:00] LABS: BE 5.3 mmol/L (-2 to +3); PCO2 46.6 mmHg (35.0-45.0); PO2 66.7 mmHg (75.0-100.0)
[2020-04-05 15:44] LABS: CALCIUM 6.5 mg/dL (8.5-10.1); CREATININE 1.2 mg/dL (0.6-1.3); POTASSIUM 3.4 mmol/L (3.5-5.1)
--- NOTE | 2020-04-05 15:51 | NUR ---
ICU rounds: Same. On vent, fio2 95%. Peep at 14. Repeat covid. Cdiff
--- NOTE | 2020-04-05 17:16 | 2DMMODE ---
[place] [address] 2 D/M-MODE ECHOCARDIOGRAM Name: SUMEETHILARIO Room: [address] ADM IN M.R.#: [id number] Admission: 03/19/20 Attend Phys: Vanna Monae, Discharge: Date of : 50 Date of Service: 04/05/20 1716 Report #: [id number] THIS REPORT FOR: cc: Wilton oClon Brad DO Liston, Michael J. MD [facility] ~ APPROVED REPORT Study performed: 04/05/2020 16:02:49 EXAM: Limited 2D, Doppler, and color-flow Echocardiogram BSA: 1.82 HR: 90 bpm BP: 145/54 mmHg Other Information Study Quality: Fair Indications Reassess PA Pressure Tricuspid Valve RAP Estimate: 5.00 mmHg TR Peak Gr.: 36.75 mmHg RVSP: 41.75 mmHg PA Pressure: 41.75 mmHg Left Ventricle The left ventricle is normal size. There is normal LV segmental wall motion. There is normal left ventricular wall thickness. The left ventricular systolic function is normal. LVEF is 55%. Right Ventricle The right ventricle is normal size. The right ventricular systolic function is normal. Atria The left atrium size is normal. The right atrium size is normal. Aortic Valve Grossly normal No aortic regurgitation is present. There is no aortic valvular stenosis[place] [address] 2 D/M-MODE ECHOCARDIOGRAM Name: HILARIO FAY Room: [address] IN .R.#: [id number] Admission: 03/19/20 Attend Phys: Vanna Monae, Discharge: Date of : 50 Date of Service: 04/05/201715 Report #: [id number] The mitral valve is normal in structure. There is no mitral valve regurgitation noted. No evidence of mitral valve stenosis. Tricuspid Valve Grossly normal Trace tricuspid regurgitation. The RVSP is 35 mmHg. Pulmonic Valve Pulmonic valve is not well visualized. Great Vessels IVC is not well visualized. <Conclusion> The left ventricle is normal size. There is normal left ventricular wall thickness. The left ventricular systolic function is normal. LVEF is 55%. There is normal LV segmental wall motion. Trace tricuspid regurgitation. The RVSP is 35 mmHg. IVC is not visualized. PAP pressure estimated to be from 40 to 50 mmHg. <ELECTRONICALLY SIGNED> By: Jagdeep Espinoza MD, [facility] 04/05/201715 15 15 Jagdeep Espinoza MD, FACC /INF
[2020-04-05 19:13] LABS: INR 1.1; PROTIME 11.7 Seconds (9.20-11.50)
--- NOTE | 2020-04-05 20:22 | NUR ---
VSS. PRESSURE SUPPORT AND PEEP INCREASED BY DR BARBA TODAY IN EFFORT TO PROMOTE TITRATING FIO2 DOWN, CURRENTLY 85% FIO2 WITH 94% O2 SAT. MULTIPLE CORRESPONDANCE TODAY FROM DR BARBA. HE REQUESTED ARIXTRA 2.5MG SQ DAILY, PER PHARMACY IT IS NOT AVAILABLE HERE OR AT [facility] BUT CAN BE OBTAINED BY WEDNESDAY. PTS HEPARIN ANTIBODY TEST STILL PENDING. DR BARBA ORDERED COAGS AND REQUESTED THE RESULTS WELL MOST RECENT LFTs BE CALLED TO HEMATOLOGY AND TO REQUEST THEIR INPUT ON APPROPRIATE ANTICOAGULANT UNTIL ARIXTRA IS AVAILABLE HE DOES NOT WANT TO USE ARGOTROBAN. K & MAG REPLACED PER ORDERS. TOLERATING TF WITH 0-5ML RESIDUALS. COVID PCR POSITIVE TODAY, ENHANCED PRECAUTIONS WERE RESUMED YESTERDAY BY DR BARBA WHEN HE NOTED THAT ONLY ONE NEGATIVE RESULT HAD BEEN OBTAINED.
[2020-04-06] VITALS (80 sets, daily range): BP systolic 110–148; BP diastolic 43–66
[2020-04-06 03:22] LABS: ABSOLUTE BASOPHILS 0.1 thou/uL (0.0-0.2); ABSOLUTE LYMPHOCYTES 0.1 thou/uL (0.8-5.3); ABSOLUTE MONOCYTES 0.3 thou/uL (0.0-1.2); ABSOLUTE NEUTROPHILS 13.4 thou/uL (1.6-8.1); BASOPHILS 0.9 %; HEMATOCRIT 23.6 % (37.0-47.0); HEMOGLOBIN 7.7 gm/dL (12.0-15.0); LYMPHOCYTES 0.8 %; MCH 29.1 pg (26.0-34.0); MCHC 32.6 g/dL (28.0-37.0); MCV 89.3 fL (80.0-100.0); MONOCYTES 2.2 %; MPV 8.5 fl. (7.2-11.1); NUCLEATED RBCS 0 /100WBC; PLATELET COUNT* 76 thou/uL (150-400); POLYS 96.1 %; RBC 2.64 mil/uL (4.20-5.00); RDW-CV 18.4 % (10.5-14.5); WBC 13.9 thou/uL (4.0-11.0)
[2020-04-06 03:52] LABS: ALBUMIN 2.4 g/dL (3.4-5.0); CALCIUM 6.4 mg/dL (8.5-10.1); CREATININE 1.2 mg/dL (0.6-1.3); MAGNESIUM 2.3 mg/dL (1.8-2.4); TOTAL BILIRUBIN 0.4 mg/dL (<0.1-1.0); TOTAL PROTEIN 6.4 g/dL (6.4-8.2)
[2020-04-06 03:55] LABS: POTASSIUM 4.6 mmol/L (3.5-5.1)
[2020-04-06 03:56] LABS: PREALBUMIN 28.7 mg/dL (18.0-35.7)
[2020-04-06 04:07] LABS: PHOSPHORUS* 5.7 mg/dL (2.5-4.9)
--- NOTE | 2020-04-06 05:45 | NUR ---
ASSUMED CARE AT 1910H, ON VENT AT 85% AND TOLERATED. SEEN ON BED SEDATED WITH VERSED AND FENTANYL. CALLED EDUAR WITH ORDERS MADE AND CARRIED OUT, BIVALIRUDIN IV STARTED AND TO BE CHANGE BY ARIXTRA WHEN AVAILABLE. UPDATE GIVEN TO PULMO AND WILL TALK TO PHARMACY TODAY FOR ARIXTRA DOSING. FEEDING HOLD FOR TIERRA TODAY. CONTINUE MONITORING AND TOWARDS GOALS. FIO2 DECREASED TO 65% AND TOLERATED.
--- NOTE | 2020-04-06 07:30 | NUR ---
ASSUMED CARE OF PATIENT.
[2020-04-06 08:46] LABS: BE 2.1 mmol/L (-2 to +3); PO2 63.6 mmHg (75.0-100.0); pH 7.392 (7.340-7.450)
--- NOTE | 2020-04-06 09:00 | NUR ---
DR VALDEZ NOTIFIED OF STACKING BREATHS, ABGS AND HR. ORDERS RECV'D TO GIVE VERSED ORDERED.
--- NOTE | 2020-04-06 14:30 | NUR ---
DR ESPINOZA REQUESTED TO ROUND PER DR FRANCISCO RE: ELEVATED LFT. DR ESPINOZA UPDATED ON LABS, PENDING ABD US. ORDERED GGTP AND PLANS TO ROUND IN AM.
--- NOTE | 2020-04-06 14:40 | NUR ---
WENT TO CT ON VENTILATOR W/ RT & RN
--- NOTE | 2020-04-06 15:30 | NUR ---
RETURNED FROM CT. TOLERATED WELL ON FIO2 100%.
--- NOTE | 2020-04-06 18:30 | NUR ---
RESTARTED TUBE FEEDING AFTER US. NO PROGRESS TOWARDS DECREASING FIO2. HR BACK WNL.
[2020-04-07] VITALS (18 sets, daily range): BP systolic 104–140; BP diastolic 43–63
[2020-04-07 06:09] LABS: BE 0.9 mmol/L (-2 to +3); PCO2 45.5 mmHg (35.0-45.0); PO2 71.3 mmHg (75.0-100.0)
--- NOTE | 2020-04-07 06:51 | NUR ---
HR SR ON THE MONITOR THROUGH THE NIGHT. FIO2 DOWN TO 70% WITH OCCASSIONAL DESATURATION INTO HIGH 80s THAT RESOLVES WITH NO INTERVENTIONS. NO BM, UOP 1000 CC. OTHERWISE UNEVENTFUL NIGHT. Q2 TURNS FOR SKIN INTEGRITY. WILL CONTINUE MONITORING FOR THE REMAINDER OF SHIFT.
[2020-04-07 08:28] LABS: HEMATOCRIT 27.8 % (37.0-47.0); MCH 29.4 pg (26.0-34.0); MCHC 32.4 g/dL (28.0-37.0); MCV 90.7 fL (80.0-100.0); MPV 8.8 fl. (7.2-11.1); RBC 3.06 mil/uL (4.20-5.00); RDW-CV 18.2 % (10.5-14.5); WBC 15.6 thou/uL (4.0-11.0)
[2020-04-07 08:33] LABS: CALCIUM 6.1 mg/dL (8.5-10.1); CREATININE 1.5 mg/dL (0.6-1.3); POTASSIUM 3.6 mmol/L (3.5-5.1)
[2020-04-07 09:17] LABS: ALBUMIN 2.3 g/dL (3.4-5.0); DIRECT BILIRUBIN 0.2 mg/dL (<0.1-0.3); TOTAL BILIRUBIN 0.4 mg/dL (<0.1-1.0); TOTAL PROTEIN 5.7 g/dL (6.4-8.2)
--- NOTE | 2020-04-07 18:32 | NUR ---
VENT SUPPORT CONTD, PIP DOWN TO 21, FIO2 70%, DESATS TO HIGH 80s AT TIMES BUT BOUNCES BACK TO LOW 90s. SEDATION ADEQUATE WITH VERSED AND FENTANYL. TOLERATING TUBE FEEDS AT GOAL. INSULIN GIVEN PER HIGH DOSE SLIDING SCALE. SPECIAL CONTACT ISOLATION MAINTAINED.
[2020-04-08] VITALS (61 sets, daily range): BP systolic 96–133; BP diastolic 43–60
--- NOTE | 2020-04-08 04:50 | NUR ---
ASSUMED PATIENT CARE AT 1900. ASSESSMENTS COMPLETED CHARTED. CARDIAC MONITORING IN PLACE. PATIENT SEDATED ON VERSED AND FENTANYL DRIPS. FALL PRECAUTIONS IN PLACE FOR PATIENT SAFETY. BED LOCKED AND IN LOWEST POSITION. PATIENT O2 SATURATION DECREASES TO HIGH 80S WITH TURNS BUT RETURNS TO MID TO LOW 90S SHORTLY AFTER.
[2020-04-08 05:44] LABS: BE -5.5 mmol/L (-2 to +3); PCO2 33.4 mmHg (35.0-45.0); PO2 64.4 mmHg (75.0-100.0); pH 7.367 (7.340-7.450)
[2020-04-08 06:44] LABS: HEMATOCRIT 27.1 % (37.0-47.0); HEMOGLOBIN 8.8 gm/dL (12.0-15.0); MCH 29.6 pg (26.0-34.0); MCHC 32.6 g/dL (28.0-37.0); MCV 90.7 fL (80.0-100.0); MPV 8.6 fl. (7.2-11.1); NUCLEATED RBCS 0 /100WBC; PLATELET COUNT* 78 thou/uL (150-400); RBC 2.98 mil/uL (4.20-5.00); RDW-CV 18.5 % (10.5-14.5); WBC 15.9 thou/uL (4.0-11.0)
[2020-04-08 06:50] LABS: INR 1.2
[2020-04-08 06:52] LABS: PREALBUMIN 38.3 mg/dL (18.0-35.7)
[2020-04-08 06:53] LABS: ALBUMIN 2.1 g/dL (3.4-5.0); CREATININE 1.8 mg/dL (0.6-1.3); POTASSIUM 3.6 mmol/L (3.5-5.1); TOTAL BILIRUBIN 0.4 mg/dL (<0.1-1.0); TOTAL PROTEIN 6.1 g/dL (6.4-8.2)
[2020-04-08 06:58] LABS: CALCIUM 5.7 mg/dL (8.5-10.1)
[2020-04-08 07:32] LABS: ABSOLUTE LYMPHOCYTES 0.2 thou/uL (0.8-5.3); ABSOLUTE MONOCYTES 0.5 thou/uL (0.0-1.2); ABSOLUTE NEUTROPHILS 15.3 thou/uL (1.6-8.1); PLATELET ESTIMATE ADEQUATE
[2020-04-08 16:58] LABS: BE -6.9 mmol/L (-2 to +3); PO2 88.4 mmHg (75.0-100.0)
[2020-04-08 17:02] LABS: PCO2 65.7 mmHg (35.0-45.0); pH 7.152 (7.340-7.450)
[2020-04-08 17:40] LABS: CREATININE 2.2 mg/dL (0.6-1.3)
[2020-04-08 18:05] LABS: CALCIUM 5.9 mg/dL (8.5-10.1); POTASSIUM 5.2 mmol/L (3.5-5.1)
--- NOTE | 2020-04-08 18:56 | NUR ---
THIS RN RCVD RETURN PHONE CALL FROM DR MEENA Addison/ SURGERY TEAM. PER REPORT PNEUMO NOT SEEN ON MOST RECENT CXR. WILL COME TO ASSESS PT THIS EVENING. Dakota JOLLEY RN
--- NOTE | 2020-04-08 18:57 | NUR ---
PT LYING IN BED W/ EYES CLOSED AT THIS TIME. NIMBEX, FENTANYL, AND VERSED GTTS INFUSING. VSS ALTHOUGH BP HAS DECREASED SLIGHTLY. MOST RECENT LABS SHOWING START OF RENAL FAILURE. DR BARBA AWARE AND WILL REVIEW 1900 ABG PRIOR TO STARTING FLUIDS. SEE RT NOTES FOR VENT SETTINGS. CREPITUS NOTED ON 1600 ASSESSMENT TO RT NECK AND UPPER CHEST. DR BARBA NOTIFIED OF CREPITUS AND CRITICAL ABG. SURGERY CONSULTED. WILL SEE PT THIS EVENING. SR ON MONITOR. RT A LINE. GENERALIZED EDEMA. HEAVEN TO BILAT HANDS AND ANKLES. OG @ 60CM. CHANGED TF TODAY TO POSSIBLY DECREASE STOOL. VITAL AF 1.2 INFUSING AT 55ML/HR W/ 300CC H20 FLUSHES Q 6H. MIN RESIDUALS. + BS. FECAL CONTAINMENT DEVICE IN PLACE. WEST TO D/D. DARK TEA COLORED URINE W/ SEDIMENT. ATTEMPTED TO TURN TO RT SIDE. PT BECAME TACHYCARDIC AND HAD DECREASED BP. TOLERATING SUPINE AND LT SIDE. SCDS ON. BOOT TO RT FOOT. ALL EXTREMITIES ELEVATED W/ PILLOW. FULL UPDATE VERBALIZED TO DIL THIS AFTERNOON. Dakota JOLLEY, RN
[2020-04-08 20:06] LABS: BE -7.4 mmol/L (-2 to +3); PCO2 46.7 mmHg (35.0-45.0); PO2 101.8 mmHg (75.0-100.0)
[2020-04-08 20:10] LABS: pH 7.241 (7.340-7.450)
--- NOTE | 2020-04-08 23:51 | NUR ---
DR DINORAH ROBLEDO HERE TO SEE PT AT 2200. WAS INFORMED BY DR ROBLEDO THAT CHEST TUBE IS NOT INDICATED AT THIS TIME. SPOKE WITH PT'S SON UDAY AND INFORMED HIM THAT CHEST TUBE WAS NOT INDICATED AT THIS TIME PER SURGON DR ROBLEDO.
[2020-04-09] VITALS (27 sets, daily range): BP systolic 110–169; BP diastolic 44–113
[2020-04-09 03:42] LABS: ABSOLUTE LYMPHOCYTES 0.1 thou/uL (0.8-5.3); ABSOLUTE MONOCYTES 0.2 thou/uL (0.0-1.2); ABSOLUTE NEUTROPHILS 12.6 thou/uL (1.6-8.1); BASOPHILS 0.3 %; HEMATOCRIT 24.6 % (37.0-47.0); HEMOGLOBIN 8.1 gm/dL (12.0-15.0); LYMPHOCYTES 0.7 %; MCH 29.7 pg (26.0-34.0); MCV 89.9 fL (80.0-100.0); MONOCYTES 1.9 %; MPV 8.5 fl. (7.2-11.1); NUCLEATED RBCS 0 /100WBC; PLATELET COUNT* 68 thou/uL (150-400); POLYS 97.1 %; RBC 2.73 mil/uL (4.20-5.00); RDW-CV 18.2 % (10.5-14.5)
[2020-04-09 04:06] LABS: ALBUMIN 2.2 g/dL (3.4-5.0); CREATININE 2.2 mg/dL (0.6-1.3); MAGNESIUM 2.2 mg/dL (1.8-2.4); POTASSIUM 5.1 mmol/L (3.5-5.1); TOTAL BILIRUBIN 0.5 mg/dL (<0.1-1.0); TOTAL PROTEIN 5.6 g/dL (6.4-8.2)
[2020-04-09 04:16] LABS: CALCIUM 5.8 mg/dL (8.5-10.1)
[2020-04-09 04:46] LABS: PHOSPHORUS* 10.1 mg/dL (2.5-4.9)
[2020-04-09 08:24] LABS: BE -6.1 mmol/L (-2 to +3); PO2 65.3 mmHg (75.0-100.0)
[2020-04-09 08:29] LABS: pH 7.289 (7.340-7.450)
--- NOTE | 2020-04-09 10:22 | NUR ---
ICU ROUNDS: PER RN "NOT IMPROVING" CONT TO BE INTUBATED AND SEDATED.
[2020-04-09 14:08] LABS: HEMATOCRIT 26.9 % (37.0-47.0); MCHC 33.4 g/dL (28.0-37.0); MCV 89.9 fL (80.0-100.0); MPV 8.7 fl. (7.2-11.1); NUCLEATED RBCS 0 /100WBC; PLATELET COUNT* 70 thou/uL (150-400); RDW-CV 18.4 % (10.5-14.5)
[2020-04-09 14:28] LABS: BE -5.3 mmol/L (-2 to +3); PCO2 46.2 mmHg (35.0-45.0); PO2 85.1 mmHg (75.0-100.0)
[2020-04-09 14:48] LABS: pH 7.281 (7.340-7.450)
[2020-04-09 15:02] LABS: ABSOLUTE LYMPHOCYTES 0.3 thou/uL (0.8-5.3); ABSOLUTE NEUTROPHILS 14.7 thou/uL (1.6-8.1); PLATELET ESTIMATE ADEQUATE
[2020-04-09 15:24] LABS: ALBUMIN 2.2 g/dL (3.4-5.0); CREATININE 2.4 mg/dL (0.6-1.3); POTASSIUM 5.3 mmol/L (3.5-5.1); TOTAL BILIRUBIN 0.4 mg/dL (<0.1-1.0); TOTAL PROTEIN 5.6 g/dL (6.4-8.2)
[2020-04-09 15:25] LABS: CALCIUM 5.6 mg/dL (8.5-10.1)
--- NOTE | 2020-04-09 18:08 | NUR ---
PICC LINE OUT, SENT FOR TIP CULTURE. VENT SUPP CONTD, FIO2 INCREASED TO 80% THIS AM. FENTANYL DECREASED TO 100 PER JAMESON, VERSED TO BE CONTD AT 10 MG/HR AND NIMBEX AT 37.5 MLS/HR. TF RESIDUAL 360 THIS AM, REGLAN GIVEN ONE TIME, TOLERATING TUBE FEEDS THROUGHOUT THE DAY AT GOAL. CALCIUM GIVEN PER ORDERS. BICARB DRIP CONTD AT 100 MLS/HR. NOT PROGRESSING TOWARDS GOALS. TO THE HOSPITAL TODAY, WAS UPDATED AND HE WATCHED HER THROUGH THE WINDOW.
--- NOTE | 2020-04-09 18:55 | NUR ---
LOVENOX DOSING TO BE DECREASED TO DAILY [address] VU.
[2020-04-10] VITALS (18 sets, daily range): BP systolic 111–170; BP diastolic 45–69
[2020-04-10 04:07] LABS: ABSOLUTE BASOPHILS 0.1 thou/uL (0.0-0.2); ABSOLUTE LYMPHOCYTES 0.3 thou/uL (0.8-5.3); ABSOLUTE NEUTROPHILS 17.7 thou/uL (1.6-8.1); BASOPHILS 0.3 %; EOSINOPHILS 0.1 %; HEMATOCRIT 29.5 % (37.0-47.0); HEMOGLOBIN 9.7 gm/dL (12.0-15.0); LYMPHOCYTES 1.6 %; MCH 29.3 pg (26.0-34.0); MCHC 32.8 g/dL (28.0-37.0); MCV 89.4 fL (80.0-100.0); MONOCYTES 0.2 %; MPV 8.7 fl. (7.2-11.1); NUCLEATED RBCS 0 /100WBC; PLATELET COUNT* 85 thou/uL (150-400); POLYS 97.8 %; RBC 3.29 mil/uL (4.20-5.00); RDW-CV 18.5 % (10.5-14.5); WBC 18.1 thou/uL (4.0-11.0)
[2020-04-10 04:26] LABS: PREALBUMIN 32.2 mg/dL (18.0-35.7)
[2020-04-10 04:47] LABS: ALBUMIN 2.9 g/dL (3.4-5.0); CALCIUM 6.1 mg/dL (8.5-10.1); CREATININE 2.6 mg/dL (0.6-1.3); POTASSIUM 5.2 mmol/L (3.5-5.1); TOTAL BILIRUBIN 0.5 mg/dL (<0.1-1.0); TOTAL PROTEIN 6.1 g/dL (6.4-8.2)
--- NOTE | 2020-04-10 05:33 | NUR ---
UNABLE TO TITRATE FIO2, CURRENTLY AT 100%. DID NOT TOLERATE BATH, WAS AT FIO2 OF 75% BEFORE THAT. DOES NOT TOLERATE TURNS/MOVEMENTS EITHER. UOP 100CC, DARK YELLOW. SMALL AMOUNT OF STOOL IN FECAL TUBE. TOLERATING TUBE FEEDS. OTHERWISE UNEVENTFUL NIGHT. Q2 TURNS FOR SKIN INTEGRITY. WILL CONTINUE MONITORING FOR THE REMAINDER OF SHIFT.
[2020-04-10 08:41] LABS: BE -3.8 mmol/L (-2 to +3); PO2 73.7 mmHg (75.0-100.0)
[2020-04-10 08:42] LABS: PCO2 56.6 mmHg (35.0-45.0); pH 7.243 (7.340-7.450)
--- NOTE | 2020-04-10 10:47 | CON ---
[address] [address] CONSULTATION Name: HILARIO FAY Room: [address] IN [facility].#: [id number] Admission: 03/19/20 Attend Phys: Vanna Monae MD Discharge: Date of : 50 Report #: [id number] THIS REPORT FOR: //name// cc: Isaiah,Wilton DO Mouse,Wilton DO ~ DATE OF SERVICE: 04/09/2020 REQUESTING PHYSICIAN: Dr. Dillon. REASON FOR CONSULTATION: Acute kidney injury. HISTORY OF PRESENT ILLNESS: The patient has COVID pneumonia with respiratory failure, so physical exam was not done by me; however, discussed exam in details with Dr. Dillon, safety analyst. HISTORY OF PRESENT ILLNESS: The patient is a 70-year-old female who was admitted to the hospital on 03/19/2020 with complaints of not feeling well, having some cough, congestion, increased shortness of breath. She was diagnosed with COVID pneumonia, went into progressive respiratory failure, had to be intubated. Her medical history is significant for rheumatoid arthritis and some osteoarthritis as well. While in the hospital, she developed other complications. She developed a fungemia, acute kidney injury and I was consulted. SOCIAL HISTORY: No tobacco, no alcohol abuse. FAMILY HISTORY: Noncontributory. REVIEW OF SYSTEMS: Unobtainable due to her being intubated. PHYSICAL EXAMINATION: Again was not performed due to COVID pneumonia, but discussed in detail with Dr. Dillon. LABORATORY DATA: Lab report from today revealed serum sodium of 128, potassium 5.1, chloride 90, carbon dioxide 24, BUN 154, creatinine 2.2, phosphorus was 10. ASSESSMENT: 1. Acute kidney injury due to septic process. She has COVID pneumonia. She has fungemia. 2. Hyperphosphatemia due to acute kidney injury. 3. Respiratory failure. 4. Yary albicans fungemia. PLAN: 1. Continue with the bicarbonate drip [place] [address] CONSULTATION Name: HILARIO FAY Room: [address] IN [facility].#: [id number] Admission: 03/19/20 Attend Phys: Vanna Monae MD Discharge: Date of : 50 Report #: [id number] 2. We will bring the phosphorus down by using PhosLo, making a suspension from it and putting through the tube feeds. Discussed with the pharmacy, was approved by the pharmacy using this way. 3. Monitor her renal function, I's and O's and pH very carefully. The patient may require dialysis. <ELECTRONICALLY SIGNED> By: Ger Hunter MD 04/10/20 1047 [id number] [id number] Hunter MD /PMT
--- NOTE | 2020-04-10 10:53 | NUR ---
Verbal order from Dr. Dillon to continue cisatracurium through noon tomorrow based on pt status.
--- NOTE | 2020-04-10 14:12 | NUR ---
ICU rounds: Vent maxed. Dialysis today. Pt not progressing.
--- NOTE | 2020-04-10 15:17 | NUR ---
RIGHT CEPHALIC VESSEL ACCESSED FOR 5 MAURITIAN TRIPLE LUMEN PICC. LINE PRE-TRIMMED TO 41 CM AND ADVANCED TO THE ZERO CANDIE WITH NO RESISTANCE MET. UPPER ARM CIRCUMFERENCE ABOVE INSERTION SITE= 13". SHERLOCK MAGNET AND 3CG CONFIRMATION OF TIP TERMINATION AT THE CAVOATRIAL JUNCTION APPRECIATED. GUIDE WIRE REMOVED, LINE FLUSHED AND INSERTION SITE DRESSED. REPORT GIVEN TO KAREY CASTELLANO.
[2020-04-10 16:23] LABS: BE -4.2 mmol/L (-2 to +3); PO2 63.2 mmHg (75.0-100.0)
[2020-04-10 16:28] LABS: PCO2 54.8 mmHg (35.0-45.0); pH 7.249 (7.340-7.450)
--- NOTE | 2020-04-10 19:05 | NUR ---
PT CURRENTLY ON HD. HD RN IN ROOM AT BEDSIDE. TOLERATED WELL. CONT TO HAVE PARALYTIC INFUSING W/ FENTANYL AND VERSED GTTS FOR SEDATION. NO NEUROLOGICAL CHANGES T/O SHIFT. SR ON MONITOR. GENERALIZED +2 EDEMA. +2 PULSES. BP STABLE. LT RADIAL ART LINE IN PLACE. ETT 7.5 26 @ LIP. SEE RT NOTES FOR VENT SETTINGS. CRITICAL BLOOD GASES T/O SHIFT. DR BARBA AWARE. LS COARSE T/O. SM AMNT OF SECRETIONS WHEN SUCTIONED. BLOOD TINGED ORAL SECRETIONS. OG @ 60CM. TF RESUMED AT 25CC/HR PER DR ESPINOZA ORDER. 300CC TOTAL IN FECAL CONTAINMENT DEVICE. WEST REPLACED THIS SHIFT W/ TEMP PROBE. 50CC DARK YELLOW OUT SINCE REPLACING. TEMP INITIALLY READING 95F. RL HUGGER PLACED. TEMP NOW 98.1F. REPOSITIONED TOLERATED. EXTREMITIES ELEVATED W/ PILLOWS. WEDGES UTILIZED. ORAL CARE COMPLETED Q2H. TEMP HD CATH PLACED BY DR OLIVA AT BEDSIDE. C/D/I DRESSING. PICC PLACED BY GRAY MEJIA. PIV X3 REMOVED. FULL UPDATE VIA PHONE TO AND BARTOLO. Dakota JOLLEY RN
[2020-04-10 21:21] LABS: CREATININE 2.1 mg/dL (0.6-1.3); POTASSIUM 4.8 mmol/L (3.5-5.1)
[2020-04-10 21:26] LABS: ALBUMIN 2.3 g/dL (3.4-5.0); TOTAL BILIRUBIN 0.4 mg/dL (<0.1-1.0); TOTAL PROTEIN 5.8 g/dL (6.4-8.2)
--- NOTE | 2020-04-10 22:05 | NUR ---
patient started on crrt at 2200
[2020-04-11] VITALS (58 sets, daily range): BP systolic 105–211; BP diastolic 41–137
[2020-04-11 03:50] LABS: EOSINOPHILS 0.1 %; NUCLEATED RBCS 0 /100WBC; PLATELET COUNT* 61 thou/uL (150-400)
[2020-04-11 03:53] LABS: ABSOLUTE LYMPHOCYTES 0.2 thou/uL (0.8-5.3); ABSOLUTE MONOCYTES 0.1 thou/uL (0.0-1.2); ABSOLUTE NEUTROPHILS 5.8 thou/uL (1.6-8.1); HEMATOCRIT 24.6 % (37.0-47.0); HEMOGLOBIN 8.2 gm/dL (12.0-15.0); LYMPHOCYTES 3.8 %; MCH 29.7 pg (26.0-34.0); MCHC 33.6 g/dL (28.0-37.0); MCV 88.6 fL (80.0-100.0); MONOCYTES 2.2 %; MPV 8.3 fl. (7.2-11.1); POLYS 93.9 %; RBC 2.77 mil/uL (4.20-5.00); RDW-CV 18.6 % (10.5-14.5); WBC 6.1 thou/uL (4.0-11.0)
[2020-04-11 04:15] LABS: CALCIUM 6.4 mg/dL (8.5-10.1); CREATININE 1.6 mg/dL (0.6-1.3); PHOSPHORUS* 5.4 mg/dL (2.5-4.9); POTASSIUM 4.5 mmol/L (3.5-5.1); TOTAL BILIRUBIN 0.3 mg/dL (<0.1-1.0); TOTAL PROTEIN 4.9 g/dL (6.4-8.2)
--- NOTE | 2020-04-11 06:07 | NUR ---
assumed patient care at 2100. patient remains intubalted and sedated. Rn assessments completed as documented. CRRT started at 2200. blood pressure remains stable. Dakota Hugger in place r/t patient temperature drop. Patient dropped eduardo 99.4 to 95.6 in approx an hour. Has been difficult to bring temp back to wnl. Currently at 96.1. Will continue to monitor
[2020-04-11 08:17] LABS: BE -0.2 mmol/L (-2 to +3); PCO2 47.7 mmHg (35.0-45.0)
[2020-04-11 09:50] LABS: CALCIUM 6.8 mg/dL (8.5-10.1); CREATININE 1.3 mg/dL (0.6-1.3); MAGNESIUM 1.9 mg/dL (1.8-2.4); PHOSPHORUS* 4.8 mg/dL (2.5-4.9); POTASSIUM 4.5 mmol/L (3.5-5.1)
--- NOTE | 2020-04-11 10:22 | NUR ---
1000 ASSUMED CARE OF PATIENT. REPORT FROM GRAY EDEN. CRRT ONGOING. DR BARBA TO SEE PATIENT.
--- NOTE | 2020-04-11 10:45 | NUR ---
FULL REPORT VERBALIZED TO GRAY SANDS. UPDATE GIVEN TO DR BARBA AT BEDSIDE. Dakota JOLLEY RN
--- NOTE | 2020-04-11 11:03 | NUR ---
CHEST FILM COMPLETED. DR BARBA AND DR RICHARDSON HERE.
--- NOTE | 2020-04-11 12:52 | NUR ---
COVID BY PCR SENT. NOTED ORDER BY GI FOR TF RESUMPTION BUT WILL REFRAIN FOR NOW DUE TO POSSIBLY NEEDING TO CHANGE OUT ETT PER ORDER DR BARBA
[2020-04-11 14:07] LABS: CALCIUM 7.4 mg/dL (8.5-10.1); CREATININE 1.2 mg/dL (0.6-1.3); PHOSPHORUS* 4.6 mg/dL (2.5-4.9); POTASSIUM 4.6 mmol/L (3.5-5.1)
--- NOTE | 2020-04-11 14:13 | NUR ---
ICU rounds: Pt on CRRT, labs improving. Pulm hopeful.
--- NOTE | 2020-04-11 14:57 | NUR ---
LAB RESULTS TO DR RICHARDSON.ADVISED OF BLOOD PRESSURE. NO NEW ORDERS.
[2020-04-11 17:04] LABS: BE -1.4 mmol/L (-2 to +3); PCO2 48.3 mmHg (35.0-45.0); PO2 68.9 mmHg (75.0-100.0)
--- NOTE | 2020-04-11 17:38 | NUR ---
PATIENT NOT PROGRESSING TOWARDS GOALS. CONTINUES ON CRRT WITH FLUID REMOVAL OF 150/HOUR. REMAINS NPO DUE TO POSSIBLE NEED FOR REINTUBATION.SEDATION INCREASED DUE TO HYPERTENSION. OUTPUT CHARTED. HEPARIN HELD THIS AFTERNOON URINE IS BLOOD TINGED, LABIAL FOLDS HAVE SANGUINOUS DRAINAAGE. SCLERAL EDEMA IS ALSO SEROSANGUINOUS. REPEAT COVID BY PCR SENT. CONTINUES ON VENT WITH PRESSURE CONTROL. DAUGHTER JAMILAH HAS CALLED.
[2020-04-11 17:43] LABS: CALCIUM 7.8 mg/dL (8.5-10.1); CREATININE 1.1 mg/dL (0.6-1.3); MAGNESIUM 1.8 mg/dL (1.8-2.4); PHOSPHORUS* 3.9 mg/dL (2.5-4.9); POTASSIUM 4.5 mmol/L (3.5-5.1)
--- NOTE | 2020-04-11 19:02 | NUR ---
BLOOD RETURNED AND CRRT STOPPED PER ORDER. BOTH DIALYSIS PORTS FLUSHED WITH SODIUM CITRATE AND DRESSED. 2710 ML REMOVED WITH CRRT.
[2020-04-11 21:06] LABS: HEPATITIS B SURFACE AG Negative (Negative)
[2020-04-12] VITALS (56 sets, daily range): BP systolic 88–173; BP diastolic 39–60
[2020-04-12 05:25] LABS: ABSOLUTE BASOPHILS 0.1 thou/uL (0.0-0.2); ABSOLUTE LYMPHOCYTES 0.1 thou/uL (0.8-5.3); ABSOLUTE MONOCYTES 0.1 thou/uL (0.0-1.2); ABSOLUTE NEUTROPHILS 6.1 thou/uL (1.6-8.1); BASOPHILS 1.1 %; HEMATOCRIT 25.6 % (37.0-47.0); HEMOGLOBIN 8.6 gm/dL (12.0-15.0); LYMPHOCYTES 1.2 %; MCH 30.4 pg (26.0-34.0); MCHC 33.8 g/dL (28.0-37.0); MCV 90.1 fL (80.0-100.0); MONOCYTES 2.2 %; MPV 8.7 fl. (7.2-11.1); NUCLEATED RBCS 0 /100WBC; PLATELET COUNT* 69 thou/uL (150-400); POLYS 95.5 %; RBC 2.84 mil/uL (4.20-5.00); RDW-CV 18.8 % (10.5-14.5); WBC 6.4 thou/uL (4.0-11.0)
[2020-04-12 05:40] LABS: ALBUMIN 1.8 g/dL (3.4-5.0); CALCIUM 6.5 mg/dL (8.5-10.1); CREATININE 1.4 mg/dL (0.6-1.3); MAGNESIUM 1.8 mg/dL (1.8-2.4); POTASSIUM 5.1 mmol/L (3.5-5.1); TOTAL BILIRUBIN 0.3 mg/dL (<0.1-1.0); TOTAL PROTEIN 4.9 g/dL (6.4-8.2)
[2020-04-12 08:19] LABS: BE -3.3 mmol/L (-2 to +3); PO2 70.3 mmHg (75.0-100.0)
[2020-04-12 08:24] LABS: PCO2 53.5 mmHg (35.0-45.0)
--- NOTE | 2020-04-12 13:59 | NUR ---
HEMODIALYSIS DONE THIS AM, UF 1.4L. NIMBEX STOPPED AT [address] BARBA. TUBE FEEDINGS STILL AT HOLD PER DR BARBA. HE WILL REASSESS PT AFTER 1400 ABG.
[2020-04-12 15:07] LABS: BE -3.9 mmol/L (-2 to +3); PCO2 45.9 mmHg (35.0-45.0); PO2 77.7 mmHg (75.0-100.0); pH 7.308 (7.340-7.450)
--- NOTE | 2020-04-12 15:22 | NUR ---
ICU rounds: discussing POC with family. Dialysis today. Maxed out on vent settings. Paralyzed. Pt declining. CRRT stopped last night, now on HD
--- NOTE | 2020-04-12 17:48 | NUR ---
BUTCH FROM [facility] CALLED AND SAID THEY WON'T BE ABLE TO TAKE THE PATIENT, PHYSICIAN NOTIFIED.
--- NOTE | 2020-04-12 20:31 | NUR ---
CRRT STARTED AT 1814 BY DIALYSIS NURSE, GRAY ADLER. TUBE FEEDINGS RESUMED AT 1829 AT 25 MLS/HR WITH VITAL AF. AT 1914, PT STARTED TO DESAT AT MID 80s, DR BARBA NOTIFIED, ORDERS RECEIVED FOR STAT CXR, VEC 10 MG ONE TIME AND TO START PROPOFOL DRIP. REPORT GIVEN TO UPCOMING BLOOMING MILL SUPERVISOR MIGUEL CASTELLANO.
--- NOTE | 2020-04-12 22:37 | NUR ---
RECEIVED REPORT AND ASSUMED CARE AT 1900. PT ON CRRT. SEDATED/INTUBATED. PT BEGAN TO DE-SAT. PHYSICIAN NOTIFIED AND ORDERS RECEIVED. O2 IMPROVEMENT. BED LOCKED IN LOWEST POSITION, BED AARM ON. ASSESSMENT COMPLETED CHARTED.
[2020-04-13] VITALS (46 sets, daily range): BP systolic 84–213; BP diastolic 37–67
[2020-04-13 04:54] LABS: CALCIUM 7.5 mg/dL (8.5-10.1); CREATININE 0.8 mg/dL (0.6-1.3); TOTAL BILIRUBIN 0.5 mg/dL (<0.1-1.0); TOTAL PROTEIN 5.4 g/dL (6.4-8.2)
[2020-04-13 05:57] LABS: POTASSIUM 3.8 mmol/L (3.5-5.1)
--- NOTE | 2020-04-13 08:45 | NUR ---
0765 DR LEIGH AT BEDSIDE, HE STATED THAT HE SPOKE WITH FAMILY YESTERDAY AND TO CONTINUE FULL CARE. 0821 RENAL PHYSICIAN AT BEDSIDE, CONTINUE CRRT, PATIENT IS TOLERATING.
[2020-04-13 11:28] LABS: BE -1.6 mmol/L (-2 to +3); PCO2 34.4 mmHg (35.0-45.0)
[2020-04-13 17:02] LABS: BE -2.5 mmol/L (-2 to +3); PCO2 39.4 mmHg (35.0-45.0); PO2 70.4 mmHg (75.0-100.0); pH 7.373 (7.340-7.450)
[2020-04-13 17:49] LABS: HEMATOCRIT 32.1 % (37.0-47.0); HEMOGLOBIN 10.5 gm/dL (12.0-15.0); MCH 29.7 pg (26.0-34.0); MCHC 32.8 g/dL (28.0-37.0); MCV 90.5 fL (80.0-100.0); MPV 8.9 fl. (7.2-11.1); NUCLEATED RBCS 0 /100WBC; PLATELET COUNT* 85 thou/uL (150-400); RBC 3.55 mil/uL (4.20-5.00); RDW-CV 18.7 % (10.5-14.5); WBC 10.6 thou/uL (4.0-11.0)
[2020-04-13 17:55] LABS: CALCIUM 7.8 mg/dL (8.5-10.1); CREATININE 0.6 mg/dL (0.6-1.3); MAGNESIUM 1.7 mg/dL (1.8-2.4); POTASSIUM 3.8 mmol/L (3.5-5.1)
[2020-04-13 18:34] LABS: ABSOLUTE MONOCYTES 0.4 thou/uL (0.0-1.2); ABSOLUTE NEUTROPHILS 10.2 thou/uL (1.6-8.1)
[2020-04-13 18:35] LABS: ANISOCYTOSIS 1+; PLATELET ESTIMATE DECREASED; TEARDROPS Occasional
[2020-04-14] VITALS (44 sets, daily range): BP systolic 85–205; BP diastolic 36–69
--- NOTE | 2020-04-14 00:24 | NUR ---
CRRT CLOTTED OFF AT 1145, DR RICHARDSON NOTIFIED, HE SAID HE WILL DETERMINE THE NEED FOR CRRT AFTER MORNING LABS TOMORROW. BLOOD IN THE LINES RETURNED AND CATHETER PACKED WITH 1.3 MLS OF SODIUM CITRATE EACH.
--- NOTE | 2020-04-14 06:02 | NUR ---
VENT SUPPORT CONTD, SETTINGS AND SEDATION UNCHANGED. ECG SHOWING ST, 120s METOPROLOL GIVEN ONCE 2.5 MG, RATE DOWN TO HIGH 100s. PT NORMOTHERMIC TO LOW GRADE FEVER, HENCE RL HUGGER REMOVED AT 0400. TOLERATING TUBE FEEDS AT GOAL RATE. SMALL LIQUID STOOL OUT OF RECTAL TUBE. UOP 30 MLS. COMPLETE BATH PROVIDED. Q2 TURNS AND ORAL CARE GIVEN. DIALYSIS CATH AND ART LINE DRESSINGS CHANGED.
[2020-04-14 08:01] LABS: HEMATOCRIT 28.5 % (37.0-47.0); HEMOGLOBIN 9.3 gm/dL (12.0-15.0); MCH 29.8 pg (26.0-34.0); MCHC 32.6 g/dL (28.0-37.0); MCV 91.6 fL (80.0-100.0); MPV 9.4 fl. (7.2-11.1); RBC 3.11 mil/uL (4.20-5.00); RDW-CV 19.8 % (10.5-14.5); WBC 9.1 thou/uL (4.0-11.0)
[2020-04-14 08:15] LABS: CALCIUM 7.5 mg/dL (8.5-10.1); CREATININE 0.7 mg/dL (0.6-1.3); MAGNESIUM 1.7 mg/dL (1.8-2.4); POTASSIUM 4.3 mmol/L (3.5-5.1)
[2020-04-14 11:31] LABS: BE -0.8 mmol/L (-2 to +3); PO2 70.5 mmHg (75.0-100.0); pH 7.387 (7.340-7.450)
--- NOTE | 2020-04-14 11:38 | CON ---
[address] [address] CONSULTATION Name: HILARIO FAY Room: [address] IN M.R.#: [id number] Admission: 03/19/20 Attend Phys: Vanna Monae MD Discharge: Date of : 50 Report #: [id number] THIS REPORT FOR: //name// cc: Wilton Colon DO Wilton Colon DO ~ DATE OF SERVICE: 03/30/2020 REFERRING PHYSICIAN: Vanna Monae MD REASON FOR CONSULTATION: 1. Severe C. diff. 2. Clostridium difficile colitis with persistent diarrhea despite IV Flagyl and oral vancomycin per OG tube. 3. Severe respiratory failure due to COVID, requiring mechanical ventilation. 4. Progressive anemia without any history to suggest any overt GI bleeding -- suspect anemia of chronic disease due to her infection and possibly rheumatoid arthritis. 5. Acute kidney injury, improved. 6. Rheumatoid arthritis. RECOMMENDATIONS: 1. At the present time, we would have continue the patient on IV Flagyl 500 mg IV piggyback every 8 hours, vancomycin 500 mg per OG tube every 6 hours. 2. If available, we can certainly try Dificid 200 mg once daily per OG-tube, but as I do not see them in pharmacy, it is not likely that it is going to be available for the same. 3. She is not a candidate for fecal transplant and even if she was, has not been approved for use at [facility]. 4. We will avoid all antidiarrheal medications. 5. Restart tube feedings to go away, but if it makes her diarrhea worse, she will need to stop them and begin TPN. I have discussed these plans and recommendations with the patient's ICU nurse as well. HISTORY OF PRESENT ILLNESS: A 70-year-old white female who is currently in the hospital since 03/19 with respiratory failure due to COVID. She has also been found to have C. diff and is currently on antibiotics for her respiratory failure, but is also on antibiotics in the form of Flagyl and vancomycin IV and per OG tube respectively for her C. diff. She has had persistent diarrhea. She is not able to give any history whatsoever, so most of the history is obtained from the patient's medical records. She was admitted to hospital on the because of problems with congestion and shortness of breath and denies any COVID-19 exposure. Her history regarding her GI history is not known. ALLERGIES: PENICILLIN [place] [address] CONSULTATION Name: HILARIO FAY Room: [address] IN [facility]#: [id number] Admission: 03/19/20 Attend Phys: Vanna Monae MD Discharge: Date of : 50 Report #: [id number] MEDICATIONS: At home include estradiol, folic acid, potassium, amlodipine, omeprazole, Xeljanz, methotrexate, Ultram, Percocet, Xarelto, Zocor, Neurontin, irbesartan with hydrochlorothiazide, Zetia, vitamin D, and Davina. PAST MEDICAL AND SURGICAL HISTORY: Remarkable for rheumatoid arthritis, chronic acid reflux. She has history of multiple back surgeries including laminectomy. She has had diskectomy. She had posterior spinal fusion. She had hyperlipidemia. In reviewing old records, she did undergo both upper and lower endoscopy back in November 2014, which revealed a small hiatal hernia and a colonoscopy revealed there is one small polyp within the rectum, which was hyperplastic. The remainder of the colon to the level of the terminal ileum was normal. SOCIAL HISTORY: The patient does not smoke, occasionally drinks alcohol. FAMILY HISTORY: Negative. PHYSICAL EXAMINATION: GENERAL: A 70-year-old ill-appearing white female who is currently on the ventilator. She is not able to give us any history. CARDIOPULMONARY: Revealed tachycardic rate and rhythm. LUNGS: Clear. ABDOMEN: Soft, not tender. She has normal bowel sounds. She does not have any toxic findings on physical examination from GI standpoint. LABORATORY DATA: From the revealed a white count of 11.8, hemoglobin 7.2, platelet count 126,000, MCV is 92.9 and RDW is 18.8. Her differential revealed a left shift. Her complete metabolic panel from the 24th revealed sodium 145, potassium 3.4, chloride 107, bicarbonate 30, BUN 36, creatinine 0.9 and her GFR of 62. Total bilirubin 0.4, alkaline phosphatase 114, AST 41, ALT 54, albumin is 2.3. DISCUSSION: At the present time, there is not much more that we can add to her regimen other than possibly adding Dificid or substituting Dificid. Would continue with tube feedings, but if she is still having problem with diarrhea, she may need to switch over to TPN. There is not much more that we are going to offer her from a GI standpoint. <ELECTRONICALLY SIGNED> By: Jeff Laurent DO 04/14/20 1138 1142 [id number] Laurent DO /nt
--- NOTE | 2020-04-14 19:43 | NUR ---
assessment as charted pt remains on ventilator received dialysis today tolerated well titration changed per dr burris versad at 30ml/hr fent an 150mcg pt became htn per dr burris stop nimbex push vecuronium 10mg iv start propofol at 20mcg titrate upp as blood pressure tolerates after pushing vec pt bp dropped to 90's over 40 prop stopped until pressure can recover will keep dr burris updated sats dropped to 86 fio2 increased 100%
[2020-04-15] VITALS (24 sets, daily range): BP systolic 99–201; BP diastolic 32–58
[2020-04-15 05:49] LABS: ABSOLUTE LYMPHOCYTES 0.2 thou/uL (0.8-5.3); ABSOLUTE MONOCYTES 0.4 thou/uL (0.0-1.2); ABSOLUTE NEUTROPHILS 6.5 thou/uL (1.6-8.1); BASOPHILS 0.2 %; EOSINOPHILS 0.1 %; HEMATOCRIT 25.1 % (37.0-47.0); HEMOGLOBIN 8.4 gm/dL (12.0-15.0); LYMPHOCYTES 3.1 %; MCH 30.4 pg (26.0-34.0); MCHC 33.5 g/dL (28.0-37.0); MCV 90.9 fL (80.0-100.0); MONOCYTES 5.2 %; MPV 8.6 fl. (7.2-11.1); NUCLEATED RBCS 1 /100WBC; PLATELET COUNT* 78 thou/uL (150-400); POLYS 91.4 %; RBC 2.77 mil/uL (4.20-5.00); RDW-CV 18.8 % (10.5-14.5); WBC 7.1 thou/uL (4.0-11.0)
[2020-04-15 06:40] LABS: ALBUMIN 1.9 g/dL (3.4-5.0); CREATININE 0.9 mg/dL (0.6-1.3); MAGNESIUM 1.7 mg/dL (1.8-2.4); POTASSIUM 3.9 mmol/L (3.5-5.1); TOTAL BILIRUBIN 0.3 mg/dL (<0.1-1.0); TOTAL PROTEIN 4.8 g/dL (6.4-8.2)
[2020-04-15 08:28] LABS: BE 2.3 mmol/L (-2 to +3); PCO2 39.5 mmHg (35.0-45.0); PO2 79.1 mmHg (75.0-100.0); pH 7.444 (7.340-7.450)
--- NOTE | 2020-04-15 09:34 | NUR ---
RECIEVED REPORT AND ASSUMED CARE AT 1900. VSS. ICU MONITORING IN PLACE. MEDICATIONS TITRATED PER ORDERS. BED LOCKED IN LOWEST POSITION, POSITION CHANGED EVERY TWO HOURS AND HEELS OFF LOADED. ORAL CARE COMPLETED EVERY TWO HOURS. ROUNDING COMPLETED AND ALL NEEDS MET.
--- NOTE | 2020-04-15 14:08 | NUR ---
ICU rounds: Dialysis today. Getting sicker. Requiring max sedation, 100% o2. Per nurse, plan shale miner to give last rites.
[2020-04-15 16:05] LABS: BE 4.8 mmol/L (-2 to +3); PCO2 40.1 mmHg (35.0-45.0); PO2 70.5 mmHg (75.0-100.0); pH 7.474 (7.340-7.450)
[2020-04-16] VITALS (31 sets, daily range): BP systolic 94–198; BP diastolic 31–71
[2020-04-16 04:33] LABS: ALBUMIN 1.7 g/dL (3.4-5.0); CREATININE 0.7 mg/dL (0.6-1.3); MAGNESIUM 1.6 mg/dL (1.8-2.4); POTASSIUM 4.1 mmol/L (3.5-5.1); TOTAL BILIRUBIN 0.5 mg/dL (<0.1-1.0); TOTAL PROTEIN 5.2 g/dL (6.4-8.2)
[2020-04-16 04:43] LABS: ABSOLUTE LYMPHOCYTES 0.2 thou/uL (0.8-5.3); ABSOLUTE MONOCYTES 0.5 thou/uL (0.0-1.2); ABSOLUTE NEUTROPHILS 7.2 thou/uL (1.6-8.1); EOSINOPHILS 0.1 %; HEMATOCRIT 23.1 % (37.0-47.0); HEMOGLOBIN 7.7 gm/dL (12.0-15.0); LYMPHOCYTES 2.9 %; MCHC 33.3 g/dL (28.0-37.0); MCV 90.2 fL (80.0-100.0); MPV 8.5 fl. (7.2-11.1); NUCLEATED RBCS 1 /100WBC; PLATELET COUNT* 83 thou/uL (150-400); RBC 2.56 mil/uL (4.20-5.00); RDW-CV 19.3 % (10.5-14.5); WBC 7.9 thou/uL (4.0-11.0)
[2020-04-16 08:42] LABS: BE 0.9 mmol/L (-2 to +3); PCO2 40.8 mmHg (35.0-45.0); PO2 95.1 mmHg (75.0-100.0); pH 7.414 (7.340-7.450)
--- NOTE | 2020-04-16 14:27 | NUR ---
ICU rounds: Intubated and sedated. Changed gtts, doing better, but still critically ill. Picc, rojas and fecal tube in place. Dialysis today
--- NOTE | 2020-04-16 18:39 | NUR ---
this medical writer assumed care of pt at 0700 assessment as charted pt remains intubated and sedated family updated brought in [facility] pt on versad propofol and dilaudid titrated down on fio2 to toleration able to titrate down to 90 then pt started desating had to increase fio2 back to 100% tolerating well sats in 90"s called dr burris he ordered 1m ivp of dilaudid x2 help pt b/p o2sat and rr dialysis completed today removed 2L tolerated well
[2020-04-17] VITALS (47 sets, daily range): BP systolic 112–221; BP diastolic 43–67
[2020-04-17 05:29] LABS: ABSOLUTE LYMPHOCYTES 0.3 thou/uL (0.8-5.3); ABSOLUTE MONOCYTES 0.5 thou/uL (0.0-1.2); ABSOLUTE NEUTROPHILS 7.9 thou/uL (1.6-8.1); EOSINOPHILS 0.3 %; HEMATOCRIT 24.4 % (37.0-47.0); HEMOGLOBIN 8.1 gm/dL (12.0-15.0); MCH 30.2 pg (26.0-34.0); MCHC 33.2 g/dL (28.0-37.0); MCV 90.8 fL (80.0-100.0); MONOCYTES 5.7 %; MPV 8.8 fl. (7.2-11.1); NUCLEATED RBCS 1 /100WBC; PLATELET COUNT* 94 thou/uL (150-400); RBC 2.69 mil/uL (4.20-5.00); RDW-CV 19.6 % (10.5-14.5); WBC 8.7 thou/uL (4.0-11.0)
[2020-04-17 05:45] LABS: ALBUMIN 1.7 g/dL (3.4-5.0); CALCIUM 6.6 mg/dL (8.5-10.1); CREATININE 0.9 mg/dL (0.6-1.3); MAGNESIUM 1.7 mg/dL (1.8-2.4); POTASSIUM 4.4 mmol/L (3.5-5.1); TOTAL BILIRUBIN 0.5 mg/dL (<0.1-1.0); TOTAL PROTEIN 5.3 g/dL (6.4-8.2)
[2020-04-17 08:19] LABS: BE 1.7 mmol/L (-2 to +3); PCO2 41.8 mmHg (35.0-45.0); PO2 90.3 mmHg (75.0-100.0); pH 7.418 (7.340-7.450)
--- NOTE | 2020-04-17 14:28 | NUR ---
ICU rounds: No changes, remains critically ill. Pt off CRRT, on HD
--- NOTE | 2020-04-17 19:28 | NUR ---
PT REMAINS SEDATED ON VENTILATOR. TOLERATING TUBE FEED AND WATER BOLUSES. DIALYZED TODAY, 2L OFF.
--- NOTE | 2020-04-17 23:59 | NUR ---
PT GIVEN PRN VECRONIUM FOR RESPIRATIONS > 30. PT GIVEN PRN HYDRALAZINE FOR SYS BP > 200.
[2020-04-18] VITALS (67 sets, daily range): BP systolic 85–230; BP diastolic 40–72
[2020-04-18 04:19] LABS: HEMATOCRIT 27.3 % (37.0-47.0); HEMOGLOBIN 9.1 gm/dL (12.0-15.0); MCH 30.2 pg (26.0-34.0); MCHC 33.1 g/dL (28.0-37.0); MCV 91.3 fL (80.0-100.0); MPV 8.8 fl. (7.2-11.1); RBC 2.99 mil/uL (4.20-5.00); RDW-CV 19.7 % (10.5-14.5); WBC 9.9 thou/uL (4.0-11.0)
[2020-04-18 04:53] LABS: ALBUMIN 1.8 g/dL (3.4-5.0); CALCIUM 6.7 mg/dL (8.5-10.1); CREATININE 0.9 mg/dL (0.6-1.3); MAGNESIUM 1.6 mg/dL (1.8-2.4); POTASSIUM 3.9 mmol/L (3.5-5.1); TOTAL BILIRUBIN 0.5 mg/dL (<0.1-1.0); TOTAL PROTEIN 5.6 g/dL (6.4-8.2)
[2020-04-18 06:00] LABS: BE -2.8 mmol/L (-2 to +3); PCO2 43.2 mmHg (35.0-45.0); PO2 61.1 mmHg (75.0-100.0)
--- NOTE | 2020-04-18 14:16 | NUR ---
ICU rounds: No changes. Pt having HD today.
--- NOTE | 2020-04-18 19:20 | NUR ---
MINIMAL CHANGES T/O SHIFT. NO NEUROLOGICAL CHANGES. CONTINUE VERSED AND DILAUDID GTT. PROPOFOL GTT TOLERATED. MAY HAVE VECURONIUM PUSHES WHEN SEDATION MAXED OR PER DOCTOR APPROVAL. X1 VECURONIUM IVP AT [address] BARBA REQUEST. X1 VERSED IVP THIS EVENING D/T BP TRENDING DOWN WHILE ON PROPOFOL-NOW ON STANDBY. WHEN STIMULATED VS INCREASED W/ DECREASED SAT. OINTMENT TO BILAT EYES-SEVERE SCLERAL EDEMA. COVERED W/ SALINE GAUZE TO KEEP MOIST. BLOOD TINGED ORAL SECRETIONS-FREQUENT ORAL CARE. NO VENT CHANGES. ETT @ 26.5 @ THE LIP. NO SECRETIONS SUCTIONED FROM INLINE SUCTION. WHEEZES TO RUL. ALL OTHER LOBES DIMINISHED. SR ON MONITOR. +2 PULSES. GENERALIZED EDEMA. WEST TO D/D. SMALL AMOUNT OF BLOODY DRAINAGE NOTED WHEN WEST CARE COMPLETED. 150CC DARK URINE W/ SMALL AMNT OF SEDIMENT. OG @ 58CM. TF CURRENTLY ON HOLD D/T INCREASED RESIDUALS. RECTAL TUBE IN PLACE W/ MINIMAL DRAINAGE. BS +. TURNS AND ORAL CARE TOLERATED. SCDS ON. HD COMPLETED TODAY W/ 2L OFF PER REPORT FROM HD. AFTER HD CORE TEMP 95F. RL RAMOS CURRENTLY ON W/ CORE TEMP 97.2. FULL UPDATE VERBALIZED X2 VIA PHONE TO YVAN OJEDA. Dakota JOLLEY RN
[2020-04-19] VITALS (26 sets, daily range): BP systolic 77–206; BP diastolic 37–78
[2020-04-19 01:39] LABS: HEMATOCRIT 21.5 % (37.0-47.0); MCH 30.3 pg (26.0-34.0); MCV 91.9 fL (80.0-100.0); MPV 10.6 fl. (7.2-11.1); NUCLEATED RBCS 0 /100WBC; RBC 2.34 mil/uL (4.20-5.00); WBC 8.9 thou/uL (4.0-11.0)
[2020-04-19 01:40] LABS: ALBUMIN 1.6 g/dL (3.4-5.0); CALCIUM 6.5 mg/dL (8.5-10.1); CREATININE 1.2 mg/dL (0.6-1.3); HEMOGLOBIN 7.1 gm/dL (12.0-15.0); MAGNESIUM 2.1 mg/dL (1.8-2.4); POTASSIUM 3.7 mmol/L (3.5-5.1); TOTAL BILIRUBIN 0.7 mg/dL (<0.1-1.0); TOTAL PROTEIN 4.7 g/dL (6.4-8.2)
[2020-04-19 01:41] LABS: PLATELET COUNT* 45 thou/uL (150-400)
--- NOTE | 2020-04-19 01:43 | NUR ---
PT'S MAP DROPPED TO 55. STAT LABS OBTAINED. REPORTED FINDINGS REPORTED TO DR FRANCISCO. HGB 7.1 PLATELETS 45. RECIEVED ORDER TO START LEVOPHED AND REPEAT HGB AT 0800.
[2020-04-19 02:06] LABS: PHOSPHORUS* 3.5 mg/dL (2.5-4.9)
[2020-04-19 02:23] LABS: PROTIME 10.5 Seconds (9.20-11.50)
[2020-04-19 03:18] LABS: ABSOLUTE EOSINOPHILS 0.2 thou/uL (0.0-0.7); ABSOLUTE LYMPHOCYTES 0.2 thou/uL (0.8-5.3); ABSOLUTE MONOCYTES 0.3 thou/uL (0.0-1.2); ABSOLUTE NEUTROPHILS 8.3 thou/uL (1.6-8.1)
[2020-04-19 03:19] LABS: ANISOCYTOSIS 1+; HYPOCHROMASIA 1+; PLATELET ESTIMATE DECREASED; POIKILOCYTOSIS 1+; TOXIC GRANULATION 2+
--- NOTE | 2020-04-19 03:34 | NUR ---
NOTIFIED DR BARBA REGARDING PT CONDITION, INTERVENTIONS AND LAB VALUES.
[2020-04-19 08:24] LABS: BE -3.9 mmol/L (-2 to +3); PCO2 47.2 mmHg (35.0-45.0)
[2020-04-19 08:33] LABS: pH 7.297 (7.340-7.450)
[2020-04-19 08:43] LABS: HEMATOCRIT 20.9 % (37.0-47.0)
[2020-04-19 08:44] LABS: HEMOGLOBIN 6.9 gm/dL (12.0-15.0)
--- NOTE | 2020-04-19 11:11 | NUR ---
DURING HD PT BP 200'S/60'S PER ART LINE. PRBC INFUSING VIA HD. O2 SAT DECREASED TO LOW 80'S. RR INCREASED TO 20'S. HR LOW 100'S. T PER WEST TEMP PROBE 96.3. RL SOLISER ON HIGH AT THIS TIME. DR BARBA NOTIFIED AND AT BS. VERSED 5MG IVP AND VECURONIUM 10MG IVP ADMINISTERED. SEE MAR. VERBAL PER DR BARBA TO RESTART PROPOFOL AT 30MCG/KG/MIN TO KEEP SBP 170 OR BELOW AND RR IN TEENS. STAT CXR COMPLETED. HD RN AND RT ALSO AT BS. Dakota JOLLEY RN
[2020-04-19 12:14] LABS: PCO2 56.6 mmHg (35.0-45.0); pH 7.162 (7.340-7.450)
[2020-04-19 12:15] LABS: PO2 151.7 mmHg (75.0-100.0)
--- NOTE | 2020-04-19 13:25 | NUR ---
AT APPROXIMATELY 1148 PT CONVERTED TO AFIB W/ RVR. RATE IN 150'S. SBP 130'S ON MONITOR. STAT METOPROLOL 5MG IVP ORDERED BY DR BARBA AND ADMINISTERED. HR CONTINUED TO FLUCTUATE IN 110'S-120'S W/ SBP DECREASING TO 90'S. RCVD CALL FROM JARRETT MCFARLAND, THAT FAMILY WOULD LIKE TO MAKE PT COMFORT CARE BUT WOULD FAMILY AT BEDSIDE WHEN EXTUBATED. DR URRUTIA NOTIFIED-MADE DNR. RCVD OKAY FOR FAMILY TO COME TO BEDSIDE LONG NOT COVID+ PER DR URRUTIA BY BOTH GIN HELLER, AND BLADE PATEL. PURPLE ARMBAND PLACED. STAT DOSE OF DIGOXIN .25MG IVP ORDERED BY DR URRUTIA D/T HR STILL IN 120'S-130'S W/ SBP 90'S. NOTIFIED JARRETT MCFARLAND OF APPROVAL. WILL NOTIFY DR URRUTIA FOR FURTHER ORDERS ONCE FAMILY ARRIVES. Dakota JOLLEY RN
--- NOTE | 2020-04-19 14:30 | NUR ---
ICU rounds: Pt made comfort care. Consumer Loan Processor here to give last rites. Family in ICU waiting room, meeting with family
--- NOTE | 2020-04-19 14:47 | NUR ---
FAMILY AND MASSAGE THERAPY INSTRUCTOR AT BEDSIDE. THIS RN AND RT, ROXANA, ALSO AT BEDSIDE. FAMILY MEETING W/ DR URRUTIA AND FAMILY MEMBERS UNABLE TO BE AT BEDSIDE VIA FACETIME. FAMILY AGREEABLE TO COMFORT CARE AT THIS TIME. REQUESTING TO TURN OFF VENTILATOR VS REMOVE ETT WHILE AT BEDSIDE. SEDATION CONTINUED AT THIS TIME FOR COMFORT UNTIL FAMILY VERBALIZES OK FOR WITHDRAWAL OF CARE. BEDSIDE MONITOR ON PRIVACY MODE. LINENS CHANGED, VIOLETA CARE, AND PARTIAL BED BATH COMPLETED PRIOR TO FAMILY ARRIVAL. Dakota JOLLEY, RN
--- NOTE | 2020-04-19 16:19 | NUR ---
FAMILY STILL AT BS SPEAKING W/ OTHER FAMILY MEMBERS THAT CAN NOT BE AT BEDSIDE. NO FURTHER TREATMENT. CONTINUE SEDATION AT THIS TIME. MTN NOTIFIED OF IMMINENT . Dakota JOLLEY RN
--- NOTE | 2020-04-19 16:32 | NUR ---
FAMILY REQUEST FOR VENTILATOR TO BE TURNED OFF AT THIS TIME. SEDATION STOPPED. VERSED 2MG IVP ADMINISTERED FOR COMFORT. RT AND THIS RN AT BEDSIDE. SHOLA Duncan, RN
== END 2020-04-19 16:47 | DRG 870 ==
LOC: M.ERS 12:44 → M.2W 14:11 → M.TBA-ER 14:11 → M.ICU 14:11 → M.2W 15:50 → M.ICU 03-20 13:18
PROVIDERS: Family Medicine; Internal Medicine; Internal Medicine Critical Care Medicine; Internal Medicine Hematology & Oncology; Internal Medicine Nephrology; Pediatrics; ADMIT Internal Medicine; ATTEND Internal Medicine
DX: A41.89 Other specified sepsis (principal); J96.01 Acute respiratory failure with hypoxia; U07.1 COVID-19; J12.89 Other viral pneumonia; J15.1 Pneumonia due to Pseudomonas; D65 Disseminated intravascular coagulation [defibrination syndrome]; N17.0 Acute kidney failure with tubular necrosis; N18.6 End stage renal disease; M62.82 Rhabdomyolysis; I74.9 Embolism and thrombosis of unspecified artery; B37.89 Other sites of candidiasis; A04.72 Enterocolitis due to Clostridium difficile, not specified as recurrent; J98.11 Atelectasis; T79.7XXA Traumatic subcutaneous emphysema, initial encounter; D61.9 Aplastic anemia, unspecified; I50.30 Unspecified diastolic (congestive) heart failure; Z99.11 Dependence on respirator [ventilator] status; I13.2 Hypertensive heart and chronic kidney disease with heart failure and with stage 5 chronic kidney disease, or end stage renal disease; R65.20 Severe sepsis without septic shock; M06.9 Rheumatoid arthritis, unspecified; E83.39 Other disorders of phosphorus metabolism; R73.9 Hyperglycemia, unspecified; E78.5 Hyperlipidemia, unspecified; G89.29 Other chronic pain; M54.9 Dorsalgia, unspecified; T70.29XA Other effects of high altitude, initial encounter; X58.XXXA Exposure to other specified factors, initial encounter; R74.01 Elevation of levels of liver transaminase levels; K52.9 Noninfective gastroenteritis and colitis, unspecified; I48.91 Unspecified atrial fibrillation; Z88.0 Allergy status to penicillin; Z88.8 Allergy status to other drugs, medicaments and biological substances; Z79.899 Other long term (current) drug therapy; Z28.21 Immunization not carried out because of patient refusal